=== PATIENT | female | born 1980 | race Caucasian/White ===

== ENCOUNTER 2019-11-06 12:23 | Outpatient (CLI) | payer BC, SELFPAY ==
[2019-11-06 13:23] LABS: Basophils Absolute Auto 0.1 K/mm3 (0.0-0.1); Basophils Percent Auto 0.9 % (0.2-1.2); Eosinophils Absolute Auto 0.2 K/mm3 (0-0.3); Eosinophils Percent Auto 2.3 % (0-4.4); Hematocrit 40.3 % (37.0-47.0); Hemoglobin 13.5 g/dL (12.0-15.0); Immature Granulocyte Absolute 0.09 K/mm3 (0.00-0.031); Immature Granulocyte Percent A 0.9 % (0-0.5); Lymphocytes Percent Auto 34.6 % (18.3-44.2); Mean Corpuscular HGB Conc 33.5 g/dl (32-36); Mean Corpuscular Hemoglobin 31.1 pg (26-34); Mean Corpuscular Volume 92.9 fl (80-100); Mean Platelet Volume 10.3 fl (7.4-10.4); Monocytes Absolute Auto 0.8 K/mm3 (0.1-0.6); Monocytes Percent Auto 8.5 % (2.6-8.5); Neutrophils Absolute Auto 5.2 K/mm3 (1.3-6.7); Neutrophils Percent Auto 52.8 % (45.5-73.1); Platelet Count Result 347 k/mm3 (150-375); Red Blood Count 4.34 M/mm3 (4.2-5.4); White Blood Count 9.8 K/mm3 (4.5-10.0)
== END 2019-11-06 12:24 | disposition home or self-care (01) ==
PROVIDERS: PCP Internal Medicine; Visit Provider Surgery
DX: R19.5 Other fecal abnormalities (principal); Z87.19 Personal history of other diseases of the digestive system
CPT/HCPCS: 36415; 85025

== ENCOUNTER 2020-04-19 21:23 | Emergency (ER) | payer BC, SELFPAY ==
--- NOTE | ~2020-04-19 | CT_ITS ---
EXAMINATION: CT abdomen pelvis w con INDICATION: Lower abdominal pain TECHNIQUE: Computed tomographic images of the abdomen and pelvis were obtained after the administrati on of 100 cc of Omnipaque 350 intravenous contrast. The dose-length product (DLP) was 1628.72 mGy-cm. Automated exposure control and iterative reconstruction technique were employed. COMPARISON: 03/31/2018 FINDINGS: The lung bases are clear. The heart size is normal. The liver is diffusely low in attenuati on when compared with the spleen, consistent with hepatic steatosis. The gallbladder is surgically ab sent. The spleen, pancreas, and adrenal glands are normal. The kidneys are unremarkable. No pathologi christianne enlarged abdominal or pelvic lymph nodes are identified. Colonic diverticulosis is noted. There is fat stranding adjacent to the sigmoid colon without evidence of abscess or perforation. There are no dilated loops of bowel. Nabothian cysts are noted in the cervix. There is mild lumbar spondylosis . There is a small fat-containing umbilical hernia. IMPRESSION: 1. Uncomplicated sigmoid diverticulitis. Reviewed, dictated and finalized at location A. 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
[2020-04-19 21:31] VITALS: BP 149/107; PULSE 94; RESP 20; TEMP 36.3; O2SAT 99
[2020-04-19] MEDS: SODIUM CHLORIDE 0.9% IV 1,000 ML 999 ML IV CONT (21:57)
[2020-04-19] MEDS: ONDANSETRON INJ 4 MG/2 ML VIAL IV PUSH (21:57)
[2020-04-19 22:02] VITALS: BP 162/96; PULSE 83; RESP 22; O2SAT 97
[2020-04-19 22:03] VITALS: PULSE 86; RESP 20; O2SAT 97
[2020-04-19] MEDS: DICYCLOMINE HCL INJ 20 MG/2 ML VIAL IM (22:05)
[2020-04-19 22:08] LABS: Basophils Absolute Auto 0.1 K/mm3 (0.0-0.1); Basophils Percent Auto 0.6 % (0.2-1.2); Eosinophils Absolute Auto 0.4 K/mm3 (0-0.3); Eosinophils Percent Auto 2.4 % (0-4.4); Hemoglobin 13.7 g/dL (12.0-15.0); Immature Granulocyte Absolute 0.09 K/mm3 (0.00-0.031); Immature Granulocyte Percent A 0.6 % (0-0.5); Lymphocytes Absolute Auto 3.29 K/mm3 (0.9-3.2); Lymphocytes Percent Auto 21.7 % (18.3-44.2); Mean Corpuscular HGB Conc 34.3 g/dl (32-36); Mean Corpuscular Hemoglobin 31.6 pg (26-34); Mean Corpuscular Volume 92.2 fl (80-100); Mean Platelet Volume 9.9 fl (7.4-10.4); Monocytes Percent Auto 6.6 % (2.6-8.5); Neutrophils Absolute Auto 10.4 K/mm3 (1.3-6.7); Neutrophils Percent Auto 68.1 % (45.5-73.1); Platelet Count Result 382 k/mm3 (150-375); Red Blood Count 4.34 M/mm3 (4.2-5.4); Red Cell Distribution Width 13.1 % (11.5-14.5); White Blood Count 15.2 K/mm3 (4.5-10.0)
--- NOTE | 2020-04-19 22:16 | ED.GENADULT ---
HPI - General Adult General Chief complaint: Abdominal Pain Stated complaint: bowel pain Time Seen by Provider: 04/19/20 21:40 History of Present Illness HPI narrative: Patient is a 39-year-old female who presents the emergency department with chief complaint of abdominal pain. The patient reports she has prior history of diverticulitis and sees GI. The patient states that she started having discomfort in the left lower quadrant states that it is aching and cramping and states that she has had some pain with bowel movements. The patient does report she had a little bit of blood with the stool as well Related Data Allergies Allergy/AdvReac Type Severity Reaction Status Date / Time Penicillins Allergy Mild Rash Verified 04/19/20 21:37 amoxicillin Allergy Unknown Rash Verified 04/19/20 21:37 Cephalosporins Allergy Unknown Rash Verified 04/19/20 21:37 Sulfa (Sulfonamide Allergy Unknown Rash Verified 04/19/20 21:37 Antibiotics) sulfamethizole Allergy Unknown Rash Verified 04/19/20 21:37 trimethoprim Allergy Unknown Rash Verified 04/19/20 21:37 PMFSH Past Medical History Medical History (Updated 04/19/20 @ 23:29 by Markie Rodriguez MD) Bronchitis Chicken pox Diverticulitis Elevated BP without diagnosis of hypertension [place] Hemorrhoids Migraine headache Pneumonia Post depression PVC (premature ventricular contraction) Solitary pulmonary nodule Surgical History Surgical History Cholecystectomy planned 2017 H/O removal of cyst right arm,1989 Family History Family History Mother Diabetes mellitus Father Patient's father is in good health Other Diabetes mellitus Cerebrovascular accident Hypertension Other Family history of colonic diverticulitis Social History Social History Smoking status: Former smoker Smoking end date: 04/23/12 Alcohol intake: current 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 Gender identity (if verbalized by the patient): Female Course Vital Signs Vital signs: Vital Signs Temperature 36.3 C L 04/19/20 21:31 Pulse Rate 94 04/19/20 21:31 Respiratory Rate 20 04/19/20 21:31 Blood Pressure 149/107 H 04/19/20 21:31 Pulse Oximetry 99 12/28/20 21:31 Temperature 36.3 C L 04/19/20 21:31 Pulse Rate 88 04/19/20 23:50 Respiratory Rate 14 04/19/20 23:50 Blood Pressure 161/101 H 04/19/20 23:50 Pulse Oximetry 97 04/19/20 23:50 Medical Decision Making Vital Signs Vital Signs: Vital Signs Temperature 36.3 C L 04/19/20 21:31 Pulse Rate 94 04/19/20 21:31 Respiratory Rate 20 04/19/20 21:31 Blood Pressure 149/107 H 04/19/20 21:31 Pulse Oximetry 99 04/19/20 21:31 Temperature 36.3 C L 04/19/20 21:31 Pulse Rate 88 04/19/20 23:50 Respiratory Rate 14 04/19/20 23:50 Blood Pressure 161/101 H 04/19/20 23:50 Pulse Oximetry 97 04/19/20 23:50 Lab Data Result diagrams: 04/19/20 22:00 04/19/20 22:00 Labs: Lab Results 04/19/20 04/19/20 04/19/20 Range/Units 22:00 22:00 22:34 WBC 15.2 H (4.5-10.0) K/mm3 RBC 4.34 (4.2-5.4) M/mm3 Hgb 13.7 (12.0-15.0) g/dL Hct 40.0 (37.0-47.0) % MCV 92.2 (80-100) fl MCH 31.6 (26-34) pg MCHC 34.3 (32-36) g/dl RDW 13.1 (11.5-14.5) % Plt Count 382 H (150-375) k/mm3 MPV 9.9 (7.4-10.4) fl Immature Gran % (Auto) 0.6 H (0-0.5) % Neut % (Auto) 68.1 (45.5-73.1) % Lymph % (Auto) 21.7 (18.3-44.2) % [place] % (Auto) 6.6 (2.6-8.5) % Eos % (Auto) 2.4 (0-4.4) % Baso % (Auto) 0.6 (0.2-1.2) % Lymph # (Auto) 3.29 H (0.9-3.2) K/mm3 [place] # (Auto) 1.0 H (0.1-0.6) K/mm3 Eos # (Auto) 0.4 H (0-0.3) K/mm3 Baso # (Auto) 0.1 (0.0-0.1) K/mm3 Abs Immat Gran (auto) 0.09 H (
[2020-04-19 22:17] VITALS: PULSE 85; RESP 27; O2SAT 97
[2020-04-19 22:21] LABS: Alanine Aminotransferase 41 U/L (4-35); Albumin Level 3.9 g/dL (3.5-5.1); Alkaline Phosphatase 73 U/L (38-126); Anion Gap 10 mmol/L (8-16); Aspartate Amino Transferase 34 U/L (14-36); Bilirubin,Total 0.3 mg/dL (0.2-1.3); Blood Urea Nitrogen 10 mg/dL (7-17); Calcium 9.1 mg/dL (8.4-10.2); Carbon Dioxide 27 mmol/L (22-30); Chloride 100 mmol/L (98-107); Estimated CRCL calculation 161 ml/min; Estimated Glomerular Filt Rate > 60; Glucose 131 mg/dL (65-105); Lipase 51 U/L (23-300); Potassium 3.7 mmol/L (3.4-5.0); Sodium 137 mmol/L (137-145)
[2020-04-19 22:42] LABS: Add Urine Microscopic? YES; Appearance Urine Cloudy (Clear); Bilirubin Urine Negative (Negative); Blood Urine 1+ (Negative); Color Urine Yellow (Yellow); Glucose Urine UA Negative (Negative); Ketones Urine Negative (Negative); Leukocyte Esterase Ur 2+ LEU/UL (Negative); Nitrate Urine Negative (Negative); Protein Urine Negative (Negative); Specific Grav Ur 1.019 (1.001-1.035); Squamous Epithelial Cell Urine Many /hpf (Few); Urobilinogen Urine Negative mg/dL (<2.0)
[2020-04-19 23:14] VITALS: PULSE 91; RESP 24
[2020-04-19] MEDS: metroNIDAZOLE 250 MG TABLET 500 MG PO (23:36)
[2020-04-19] MEDS: CIPROFLOXACIN 500 MG TAB PO (23:39)
[2020-04-19 23:50] VITALS: BP 161/101; PULSE 88; RESP 14; O2SAT 97
== END 2020-04-19 23:40 | disposition home or self-care (01) ==
PROVIDERS: Emergency Provider Emergency Medicine; PCP Internal Medicine
DX: K57.92 Diverticulitis of intestine, part unspecified, without perforation or abscess without bleeding (principal); Z87.891 Personal history of nicotine dependence
CPT/HCPCS: 36415; 74177; 80053; 81001; 81025; 83690; 85025; 96361; 96372; 96374; 99284; A9270; J0500; J2405; J7030; Q9967

== ENCOUNTER 2020-04-21 08:04 | Outpatient (CLI) | payer BC, SELFPAY ==
[2020-04-21 08:20] LABS: Basophils Absolute Auto 0.1 K/mm3 (0.0-0.1); Basophils Percent Auto 0.5 % (0.2-1.2); Eosinophils Absolute Auto 0.2 K/mm3 (0-0.3); Eosinophils Percent Auto 1.3 % (0-4.4); Hematocrit 39.6 % (37.0-47.0); Hemoglobin 13.2 g/dL (12.0-15.0); Immature Granulocyte Absolute 0.08 K/mm3 (0.00-0.031); Immature Granulocyte Percent A 0.5 % (0-0.5); Lymphocytes Absolute Auto 2.06 K/mm3 (0.9-3.2); Mean Corpuscular HGB Conc 33.3 g/dl (32-36); Mean Corpuscular Hemoglobin 31.1 pg (26-34); Mean Corpuscular Volume 93.4 fl (80-100); Mean Platelet Volume 9.4 fl (7.4-10.4); Monocytes Absolute Auto 1.1 K/mm3 (0.1-0.6); Monocytes Percent Auto 7.3 % (2.6-8.5); Neutrophils Absolute Auto 11.2 K/mm3 (1.3-6.7); Neutrophils Percent Auto 76.4 % (45.5-73.1); Platelet Count Result 334 k/mm3 (150-375); Red Blood Count 4.24 M/mm3 (4.2-5.4); Red Cell Distribution Width 13.3 % (11.5-14.5); White Blood Count 14.7 K/mm3 (4.5-10.0)
== END 2020-04-21 08:05 | disposition home or self-care (01) ==
PROVIDERS: PCP Internal Medicine; Visit Provider Surgery
DX: K57.92 Diverticulitis of intestine, part unspecified, without perforation or abscess without bleeding (principal)
CPT/HCPCS: 36415; 85025

== ENCOUNTER 2020-06-25 00:45 | Day surgery (SDC) | payer BC, SELFPAY ==
[2020-06-16 12:51] VITALS: BMI 47.0
--- NOTE | 2020-06-25 10:09 | WPDANESEPPF ---
Anes - Initial Pre Proc Eval Procedure: Operation Date: 06/25/20 13:30 Proposed Procedures p Colonoscopy - Kendrick Valdez MD Date/Time: 06/25/20 10:09 Surgeon: Kendrick Valdez MD Pre Op Diagnosis: Diverticulitis Patient Data Age: 40 Gender: F Height: 1.73 m Weight: 140.3 kg Allergies Allergy/AdvReac Type Severity Reaction Status Date / Time Penicillins Allergy Mild Rash Verified 06/25/20 12:23 amoxicillin Allergy Unknown Rash Verified 06/25/20 12:23 Cephalosporins Allergy Unknown Rash Verified 06/25/20 12:23 Sulfa (Sulfonamide Allergy Unknown Rash Verified 06/25/20 12:23 Antibiotics) sulfamethizole Allergy Unknown Rash Verified 06/25/20 12:23 trimethoprim Allergy Unknown Rash Verified 06/25/20 12:23 metronidazole [From Flagyl] AdvReac Intermediate Dizziness Verified 06/25/20 12:23 Home Medications Medication Instructions Recorded Confirmed Type metoprolol succinate 50 mg 50 mg PO DAILY #90 tablet 12/08/19 06/25/20 Rx tablet,extended release 24 hr ibuprofen 600 mg tablet 600 mg PO Q6H PRN 04/21/20 06/25/20 History Patient hx anesthesia problems: none Family hx anesthesia problems: none PMFSH Past Medical History Medical History (Updated 06/16/20 @ 11:25 by Kendrick Valdez MD) Asthma Bronchitis Chicken pox Depression Diarrhea Diverticulitis Elevated BP without diagnosis of hypertension [place] Hemorrhoids HTN (hypertension) Migraine headache Obesity, morbid, BMI 40.0-49.9 Pneumonia Post depression PVC (premature ventricular contraction) Solitary pulmonary nodule Surgical History Surgical History (Updated 06/16/20 @ 11:25 by Kendrick Valdez MD) Cholecystectomy planned 2017 H/O removal of cyst right arm,1990 History of cholecystectomy Family History Family History Mother Diabetes mellitus Father Patient's father is in good health Other Diabetes mellitus Cerebrovascular accident Hypertension Other Family history of colonic diverticulitis Social History Social History (Updated 06/16/20 @ 11:09 by Rosalee Hilario CMA) Smoking status: Never smoker Smoking end date: 04/23/12 Alcohol intake: current Alcohol use details: SOCIAL Substance use: unknown Substance use type: unknown Living arrangements: with family 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 Questions were solicited and answers provided to the satisfaction of the patient/family/POA.
[2020-06-25 12:25] VITALS: BP 131/74; PULSE 90; RESP 20; TEMP 36.1; O2SAT 98; BMI 45.9
[2020-06-25] MEDS: LACTATED RINGERS 1,000 ML 150 ML IV CONT (12:33)
--- NOTE | 2020-06-25 13:28 | WPDHPUPDATE1 ---
History and Physical Update Update Date/Time: 06/25/20 13:28 History and Physical has been reviewed, including an updated exam of the patient. There are NO changes in the patient's condition. Risks, benefits, and alternatives have been discussed and questions answered. Patient agrees to proceed with procedure.
[2020-06-25 13:47] VITALS: BP 131/76; PULSE 75; RESP 22; O2SAT 98
[2020-06-25 13:57] VITALS: BP 148/93; PULSE 68; RESP 22; O2SAT 99
[2020-06-25 14:07] VITALS: BP 156/86; PULSE 68; RESP 22; O2SAT 100
== END 2020-06-25 14:10 | disposition home or self-care (01) ==
PROVIDERS: PCP Internal Medicine; Visit Provider Internal Medicine Gastroenterology
PROC: 0DJD8ZZ Inspection of Lower Intestinal Tract, Via Natural or Artificial Opening Endoscopic (ICD-10-PCS; CPT 45378; principal; 2020-06-25 13:30)
DX: K57.30 Diverticulosis of large intestine without perforation or abscess without bleeding (principal); R19.7 Diarrhea, unspecified; K64.8 Other hemorrhoids; I10 Essential (primary) hypertension; E66.01 Morbid (severe) obesity due to excess calories; Z68.42 Body mass index [BMI] 45.0-49.9, adult
CPT/HCPCS: 45380; 88305; J2704; J7120

== ENCOUNTER 2020-08-31 08:00 | Outpatient (CLI) | payer BC, SELFPAY ==
[2020-08-31 08:21] LABS: Basophils Absolute Auto 0.1 K/mm3 (0.0-0.1); Basophils Percent Auto 0.8 % (0.2-1.2); Eosinophils Absolute Auto 0.3 K/mm3 (0-0.3); Eosinophils Percent Auto 3.1 % (0-4.4); Hematocrit 41.3 % (37.0-47.0); Hemoglobin 13.6 g/dL (12.0-15.0); Immature Granulocyte Absolute 0.03 K/mm3 (0.00-0.031); Immature Granulocyte Percent A 0.4 % (0-0.5); Lymphocytes Absolute Auto 3.33 K/mm3 (0.9-3.2); Lymphocytes Percent Auto 39.5 % (18.3-44.2); Mean Corpuscular HGB Conc 32.9 g/dl (32-36); Mean Corpuscular Hemoglobin 30.2 pg (26-34); Mean Corpuscular Volume 91.6 fl (80-100); Mean Platelet Volume 9.5 fl (7.4-10.4); Monocytes Absolute Auto 0.7 K/mm3 (0.1-0.6); Monocytes Percent Auto 7.8 % (2.6-8.5); Neutrophils Absolute Auto 4.1 K/mm3 (1.3-6.7); Neutrophils Percent Auto 48.4 % (45.5-73.1); Platelet Count Result 347 k/mm3 (150-375); Red Blood Count 4.51 M/mm3 (4.2-5.4); Red Cell Distribution Width 13.2 % (11.5-14.5); White Blood Count 8.4 K/mm3 (4.5-10.0)
[2020-08-31 08:31] LABS: Potassium 3.9 mmol/L (3.4-5.0)
[2020-08-31 08:32] LABS: Alanine Aminotransferase 41 U/L (4-35); Alkaline Phosphatase 74 U/L (38-126); Anion Gap 6 mmol/L (8-16); Aspartate Amino Transferase 32 U/L (14-36); Bilirubin,Total 0.1 mg/dL (0.2-1.3); Blood Urea Nitrogen 9 mg/dL (7-17); Carbon Dioxide 27 mmol/L (22-30); Chloride 105 mmol/L (98-107); Cholesterol 185 mg/dL (0-200); Estimated Glomerular Filt Rate > 60; Glucose 103 mg/dL (65-105); HDL Direct 41 mg/dL; Sodium 138 mmol/L (137-145); Triglycerides 371 mg/dL (<150)
[2020-08-31 08:42] LABS: LDL Cholesterol Direct 102 mg/dL
== END 2020-08-31 08:01 | disposition home or self-care (01) ==
PROVIDERS: PCP Internal Medicine; Visit Provider Clinical Nurse Specialist
DX: I10 Essential (primary) hypertension (principal); Z13.220 Encounter for screening for lipoid disorders
CPT/HCPCS: 36415; 80053; 80061; 85025

== ENCOUNTER → 2020-09-04 01:14 | Outpatient (CLI) | payer BC, SELFPAY ==
[2020-09-04 19:43] LABS: SARS-CoV-2 RNA PCR Negative
== END ==
PROVIDERS: PCP Internal Medicine; Visit Provider Internal Medicine Gastroenterology
DX: Z01.812 Encounter for preprocedural laboratory examination (principal); Z20.822 Contact with and (suspected) exposure to COVID-19
CPT/HCPCS: C9803; U0003; U0005

== ENCOUNTER 2020-09-08 02:43 | Day surgery (SDC) | payer BC, SELFPAY ==
[2020-09-08 07:45] VITALS: BP 149/85; PULSE 77; RESP 20; TEMP 36.3; O2SAT 96; BMI 46.9
--- NOTE | 2020-09-08 07:56 | WPDANESEPPF ---
Anes - Initial Pre Proc Eval Procedure: Operation Date: 09/08/20 08:30 Proposed Procedures p Esophagogastroduodenoscopy - Kendrick Valdez MD Date/Time: 09/08/20 07:56 Surgeon: Kendrick Valdez MD Pre Op Diagnosis: abdominal pain Patient Data Age: 40 Gender: F Height: 1.73 m Weight: 139.9 kg Last Vital Signs Temp 36.3 C L 09/08/20 07:45 Pulse 77 09/08/20 07:45 Resp 20 09/08/20 07:45 BP 149/85 H 09/08/20 07:45 Pulse Ox 96 09/08/20 07:45 Allergies Allergy/AdvReac Type Severity Reaction Status Date / Time Penicillins Allergy Mild Rash Verified 09/08/20 07:43 amoxicillin Allergy Unknown Rash Verified 09/08/20 07:43 Cephalosporins Allergy Unknown Rash Verified 09/08/20 07:43 Sulfa (Sulfonamide Allergy Unknown Rash Verified 09/08/20 07:43 Antibiotics) sulfamethizole Allergy Unknown Rash Verified 09/08/20 07:43 trimethoprim Allergy Unknown Rash Verified 09/08/20 07:43 metronidazole [From Flagyl] AdvReac Intermediate Dizziness Verified 09/08/20 07:43 Home Medications Medication Instructions Recorded Confirmed Type ibuprofen 600 mg tablet 600 mg PO Q6H PRN 04/21/20 09/08/20 History metoprolol tartrate 25 mg tablet 25 mg PO BID #180 tablet 09/06/20 09/08/20 Rx phentermine 37.5 mg tablet 37.5 mg PO DAILY #30 tablet 09/06/20 09/08/20 Rx Patient hx anesthesia problems: none Family hx anesthesia problems: none PMFSH Past Medical History Medical History (Updated 09/08/20 @ 08:36 by Kendrick Valdez MD) Asthma Bronchitis Chicken pox Depression Diarrhea Diverticulitis Elevated BP without diagnosis of hypertension Epigastric pain [place] Hemorrhoids HTN (hypertension) Migraine headache Obesity, morbid, BMI 40.0-49.9 Pneumonia Post depression PVC (premature ventricular contraction) Solitary pulmonary nodule Surgical History Surgical History Cholecystectomy planned 2017 H/O removal of cyst right arm,1990 History of cholecystectomy Family History Family History Mother Diabetes mellitus Father Patient's father is in good health Other Diabetes mellitus Cerebrovascular accident Hypertension Other Family history of colonic diverticulitis Social History Social History Smoking packs per day: 1 Smoking cigarettes per day: 20.0 Years smoked: 10 Smoking pack-years: 10.00 Smoking status: Never smoker Tobacco type: cigarettes Smoking end date: 04/23/12 Alcohol intake: current Drinks per week: 4 Substance use: unknown Substance use type: unknown Living arrangements: with family 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 Questions were solicited and answers provided to the satisfaction of the patient/family/POA.
[2020-09-08] MEDS: LACTATED RINGERS 1,000 ML 150 ML IV CONT (07:57)
--- NOTE | 2020-09-08 08:35 | PM.HPGS ---
History of Present Illness History of Present Illness Consent: Risks, benefits, and alternatives have been discussed and questions answered. Patient agrees to proceed with procedure. Chief complaint: abdominal pain Narrative: Donya Walter is a 40 year old female with intermittent epigastric pain and diarrhea, colonoscopy with normal colon biopsies Review of Systems Constitutional: Constitutional: Denies headache(s) and Denies weakness Eyes: Eyes: Denies blurry vision ENT: Reports Normal hearing present, Denies headache(s) and Denies neck pain Cardiovascular: Cardiovascular: Denies chest pain and Denies dyspnea Respiratory: Respiratory: Denies dyspnea Gastrointestinal: Gastrointestinal: Reports no additional gastrointestinal complaints Genitourinary: Genitourinary: Denies dysuria Musculoskeletal: Musculoskeletal: Denies neck pain Integumentary/Breasts: Skin/Breast: Denies dry skin Neurologic: Reports Normal hearing present, Denies headache(s) and Denies weakness Psychiatric: Psychiatric: Denies anxiety Endocrine: Endocrine: Denies change in body appearance Hematologic/Lymphatic: Hematologic/Lymphatic: Denies easy bleeding Allergic/Immunologic: Allergic/Immunologic: Denies urticaria PMFSH Past Medical History Medical History (Updated 09/08/20 @ 08:36 by Kendrick Valdez MD) Asthma Bronchitis Chicken pox Depression Diarrhea Diverticulitis Elevated BP without diagnosis of hypertension Epigastric pain [place] Hemorrhoids HTN (hypertension) Migraine headache Obesity, morbid, BMI 40.0-49.9 Pneumonia Post depression PVC (premature ventricular contraction) Solitary pulmonary nodule Surgical History Surgical History Cholecystectomy planned 2017 H/O removal of cyst right arm,1990 History of cholecystectomy Family History Family History Mother Diabetes mellitus Father Patient's father is in good health Other Diabetes mellitus Cerebrovascular accident Hypertension Other Family history of colonic diverticulitis Social History Social History Smoking packs per day: 1 Smoking cigarettes per day: 20.0 Years smoked: 10 Smoking pack-years: 10.00 Smoking status: Never smoker Tobacco type: cigarettes Smoking end date: 04/23/12 Alcohol intake: current Drinks per week: 4 Substance use: unknown Substance use type: unknown Living arrangements: with family 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 Gender identity (if verbalized by the patient): Female Spiritual care concerns: No Meds Home Medications and Allergies Home Medications Medication Instructions Recorded Confirmed Type ibuprofen 600 mg tablet 600 mg PO Q6H PRN 04/21/20 09/08/20 History metoprolol tartrate 25 mg tablet 25 mg PO BID #180 tablet 09/06/20 09/08/20 Rx phentermine 37.5 mg tablet 37.5 mg PO DAILY #30 tablet 09/06/20 09/08/20 Rx Allergies Allergy/AdvReac Type Severity Reaction Status Date / Time Penicillins Allergy Mild Rash Verified 09/08/20 07:43 amoxicillin Allergy Unknown Rash Verified 09/08/20 07:43 Cephalosporins Allergy Unknown Rash Verified 09/08/20 07:43 Sulfa (Sulfonamide Allergy Unknown Rash Verified 09/08/20 07:43 Antibiotics) sulfamethizole Allergy Unknown Rash Verified 09/08/20 07:43 trimethoprim Allergy Unknown Rash Verified 09/08/20 07:43 metronidazole [From Flagyl] AdvReac Intermediate Dizziness Verified 09/08/20 07:43 Vital Signs Vital Signs - 24 hr 09/08/20 07:45 Temperature 97.3 F L Pulse Rate 77 Respiratory Rate 20 Blood Pressure 149/85 H Pulse Oximetry 96 Exam Const: General: comfortable and no acute distress HENMT: General nose exam: Normal nares present Eyes: General: appearance normal, both eyes and all related structures
[2020-09-08 08:59] VITALS: BP 130/84; PULSE 67; RESP 22; O2SAT 98
[2020-09-08 09:09] VITALS: BP 130/84; PULSE 70; RESP 20; O2SAT 98
[2020-09-08 09:19] VITALS: BP 158/95; PULSE 71; RESP 20; O2SAT 97
== END 2020-09-08 09:20 | disposition home or self-care (01) ==
PROVIDERS: PCP Internal Medicine; Visit Provider Internal Medicine Gastroenterology
PROC: 0DJ08ZZ Inspection of Upper Intestinal Tract, Via Natural or Artificial Opening Endoscopic (ICD-10-PCS; CPT 43235; principal; 2020-09-08 08:30)
DX: K29.50 Unspecified chronic gastritis without bleeding (principal); R19.7 Diarrhea, unspecified; J45.909 Unspecified asthma, uncomplicated; F32.9 Major depressive disorder, single episode, unspecified; I10 Essential (primary) hypertension; I49.3 Ventricular premature depolarization; E66.01 Morbid (severe) obesity due to excess calories; Z68.42 Body mass index [BMI] 45.0-49.9, adult; Z87.891 Personal history of nicotine dependence
CPT/HCPCS: 43239; 87081; 88305; J2704; J7120

== ENCOUNTER 2021-08-31 16:16 | Emergency (ER) | payer BC, SELFPAY ==
[2021-08-31] VITALS (14 sets, daily range): BP systolic 140–186; BP diastolic 53–100; PULSE 69–81; RESP 18–27; TEMP 36.6; O2SAT 97–100
--- NOTE | ~2021-08-31 | CT_ITS ---
EXAMINATION: CT abdomen pelvis w con DATE: 08/31/2021 19:33 INDICATION: Hx of freq divertic, LLQ pain TECHNIQUE: Computed tomography (CT) of the abdomen and pelvis was performed with 100 mL Omnipaque-300 intravenous contrast. Automated exposure control and iterative reconstruction technique were employe d. The dose-length product was 1558.10 mGy-cm. COMPARISON: 04/19/2020, 03/31/2018, 02/20/2018. FINDINGS: Lower thorax: 3 mm right lower lobe pulmonary nodule. Liver: Steatosis. Biliary/Gallbladder: Gallbladder is absent. No bile duct dilation. Spleen: Normal. Pancreas: No mass or duct dilation. Adrenals:No mass. Kidneys: No mass, stone, or hydronephrosis. GI tract: No small or large bowel dilation. Normal appendix. Diverticulosis. Mild pericolonic inflamm atory change in the distal sigmoid. Mesentery/Peritoneum: No ascites, mass, or free air. Retroperitoneum: No mass.. Pelvis: Pelvic organs are within normal limits. Soft Tissues: Small fat-containing bilateral inguinal hernias. Bones: No acute osseous finding. IMPRESSION: Uncomplicated acute distal sigmoid diverticulitis. 3 mm right lower lobe pulmonary nodule, if at high risk consider optional follow-up CT chest in 12 months, otherwise no follow-up required. Reviewed, dictated and finalized at location K. IMPRESSION: Uncomplicated acute distal sigmoid diverticulitis. 3 mm right lower lobe pulmon marika nodule, if at high risk consider optional follow-up CT chest in 12 months, otherwise no follow-up required.
[2021-08-31 16:45] LABS: Basophils Absolute Auto 0.1 K/mm3 (0.0-0.1); Basophils Percent Auto 0.8 % (0.2-1.2); Eosinophils Absolute Auto 0.2 K/mm3 (0-0.3); Eosinophils Percent Auto 2.2 % (0-4.4); Hematocrit 39.4 % (37.0-47.0); Hemoglobin 13.5 g/dL (12.0-15.0); Immature Granulocyte Absolute 0.05 K/mm3 (0.00-0.031); Immature Granulocyte Percent A 0.5 % (0-0.5); Lymphocytes Percent Auto 29.4 % (18.3-44.2); Mean Corpuscular HGB Conc 34.3 g/dl (32-36); Mean Corpuscular Volume 90.4 fl (80-100); Mean Platelet Volume 9.5 fl (7.4-10.4); Monocytes Percent Auto 10.3 % (2.6-8.5); Neutrophils Absolute Auto 5.4 K/mm3 (1.3-6.7); Neutrophils Percent Auto 56.8 % (45.5-73.1); Platelet Count Result 333 k/mm3 (150-375); Red Blood Count 4.36 M/mm3 (4.2-5.4); Red Cell Distribution Width 13.1 % (11.5-14.5); White Blood Count 9.5 K/mm3 (4.5-10.0)
[2021-08-31 16:57] LABS: Alanine Aminotransferase 33 U/L (6-35); Albumin Level 4.2 g/dL (3.5-5.1); Alkaline Phosphatase 93 U/L (38-126); Anion Gap 7 mmol/L (8-16); Aspartate Amino Transferase 27 U/L (14-36); Bilirubin,Total 0.3 mg/dL (0.2-1.3); Blood Urea Nitrogen 9 mg/dL (7-17); Calcium 8.7 mg/dL (8.4-10.2); Carbon Dioxide 25 mmol/L (22-30); Chloride 100 mmol/L (98-107); Estimated CRCL calculation 157 ml/min; Estimated Glomerular Filt Rate > 60; Glucose 101 mg/dL (65-110); Lipase 253 U/L (23-300); Potassium 3.8 mmol/L (3.4-5.0); Sodium 132 mmol/L (137-145)
--- NOTE | 2021-08-31 19:09 | ED.ABDPAIN ---
HPI - Abdominal Pain General Chief Complaint: Abdominal Pain Stated Complaint: ABD PAIN HX DIVERTICULITIS Time Seen by Provider: 08/31/21 18:53 Source: patient Mode of arrival: ambulatory Limitations: no limitations History of Present Illness HPI narrative: Patient is a 41-year-old female who presents to the ED with report of left lower quadrant abdominal pain. Patient reports the pain began around 6 PM yesterday but became more severe and constant today. She does note a history of 3 previous episodes of diverticulitis which have felt similar. Last episode April 2020. She had a colonoscopy [address] Medina and has seen Dr. Orellana for her diverticulitis in the past. She has had 1 episode of perforation associated with diverticulitis but did not require surgery. Patient has not taken anything for pain since it began. She also reports having worsening abdominal pain with having a bowel movement but denies any recent diarrhea, rectal bleeding, constipation, fever, chills, nausea, vomiting, urinary symptoms. Related Data Home Medications Medication Instructions Recorded Confirmed ibuprofen 600 mg tablet 600 mg PO Q6H PRN 04/21/20 10/26/20 Allergies Allergy/AdvReac Type Severity Reaction Status Date / Time Penicillins Allergy Mild Rash Verified 09/08/20 07:43 amoxicillin Allergy Unknown Rash Verified 09/08/20 07:43 Cephalosporins Allergy Unknown Rash Verified 09/08/20 07:43 Sulfa (Sulfonamide Allergy Unknown Rash Verified 09/08/20 07:43 Antibiotics) sulfamethizole Allergy Unknown Rash Verified 09/08/20 07:43 trimethoprim Allergy Unknown Rash Verified 09/08/20 07:43 metronidazole [From Flagyl] AdvReac Intermediate Dizziness Verified 09/08/20 07:43 Review of Systems Review of Systems: CONSTITUTIONAL: Denies fever, chills. CARDIOVASCULAR: Denies chest pain. RESPIRATORY: Denies cough or dyspnea. GASTROINTESTINAL: Reports LLQ ABD pain, ABD pain with BMs. Denies constipation, rectal bleeding, nausea, vomiting, or diarrhea. GENITOURINARY: Denies dysuria or hematuria. SKIN: Denies rash or itching. MUSCULOSKELETAL: Denies back pain. All systems reviewed & are unremarkable except as noted in HPI and below PMFSH Past Medical History Medical History Asthma Bronchitis Chicken pox Depression Diarrhea Diverticulitis Elevated BP without diagnosis of hypertension Epigastric pain [place] Hemorrhoids HTN (hypertension) Migraine headache Obesity, morbid, BMI 40.0-49.9 Pneumonia Post depression PVC (premature ventricular contraction) Solitary pulmonary nodule Surgical History Surgical History Cholecystectomy planned 2017 H/O removal of cyst right arm,1990 History of cholecystectomy Family History Family History Mother Diabetes mellitus Father Patient's father is in good health Other Diabetes mellitus Cerebrovascular accident Hypertension Other Family history of colonic diverticulitis Social History Social History Smoking packs per day: 1 Smoking cigarettes per day: 20.0 Years smoked: 10 Smoking pack-years: 10.00 Smoking status: Never smoker Tobacco type: cigarettes Smoking end date: 04/23/12 Alcohol intake: current Drinks per week: 4 Alcohol use details: SOCIAL Substance use: unknown Substance use type: unknown 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 HEAD: Normocephalic, atraumatic. NECK: Supple. No adenopathy, no masses. RESPIRATORY: Airway patent, respirations nonlabored. Clear to auscultation bilaterally, no rales, rhonchi, wheezing.
[2021-08-31] MEDS: SODIUM CHLORIDE 0.9% IV 1,000 ML 999 ML IV CONT (20:09)
[2021-08-31] MEDS: KETOROLAC 30 MG/ML VIAL (*BKC) IV PUSH (20:10)
[2021-08-31] MEDS: metroNIDAZOLE 250 MG TABLET 500 MG PO (21:06)
[2021-08-31] MEDS: levoFLOXacin 750 MG TABLET PO (21:07)
[2021-08-31 21:11] LABS: Appearance Urine Slightly Cloudy (Clear); Bilirubin Urine Negative (Negative); Blood Urine Trace-lysed (Negative); Color Urine Yellow (Yellow); Glucose Urine UA Negative (Negative); Ketones Urine Negative (Negative); Leukocyte Esterase Ur 1+ LEU/UL (Negative); Nitrate Urine Negative (Negative); Protein Urine Negative (Negative); Specific Grav Ur 1.025 (1.001-1.035); Urobilinogen Urine 0.2 mg/dL (<2.0); pH Urine 5.5 (5.0-9.0)
[2021-08-31 21:22] LABS: Add Urine Microscopic? YES; Mucus Urine Rare /lpf; Squamous Epithelial Cell Urine Many /hpf (Few)
== END 2021-08-31 21:44 | disposition home or self-care (01) ==
PROVIDERS: Emergency Medicine; Emergency Provider Emergency Medicine; PCP Internal Medicine
DX: K57.32 Diverticulitis of large intestine without perforation or abscess without bleeding (principal); J45.909 Unspecified asthma, uncomplicated; E66.01 Morbid (severe) obesity due to excess calories; Z68.42 Body mass index [BMI] 45.0-49.9, adult; Z87.891 Personal history of nicotine dependence; R91.1 Solitary pulmonary nodule
CPT/HCPCS: 36415; 74177; 80053; 81001; 81025; 83690; 85025; 87086; 87088; 96361; 96365; 99284; A9270; J0131; J1885; J7030; Q9967

== ENCOUNTER 2021-10-17 17:01 | Outpatient (CLI) | payer BC, SELFPAY ==
[2021-10-17 17:18] LABS: Basophils Absolute Auto 0.1 K/mm3 (0.0-0.1); Basophils Percent Auto 0.8 % (0.2-1.2); Eosinophils Absolute Auto 0.3 K/mm3 (0-0.3); Eosinophils Percent Auto 2.1 % (0-4.4); Hemoglobin 13.3 g/dL (12.0-15.0); Immature Granulocyte Absolute 0.05 K/mm3 (0.00-0.031); Immature Granulocyte Percent A 0.4 % (0-0.5); Lymphocytes Absolute Auto 3.24 K/mm3 (0.9-3.2); Lymphocytes Percent Auto 27.2 % (18.3-44.2); Mean Corpuscular HGB Conc 33.3 g/dl (32-36); Mean Corpuscular Hemoglobin 30.5 pg (26-34); Mean Corpuscular Volume 91.7 fl (80-100); Mean Platelet Volume 9.3 fl (7.4-10.4); Monocytes Percent Auto 8.1 % (2.6-8.5); Neutrophils Absolute Auto 7.3 K/mm3 (1.3-6.7); Neutrophils Percent Auto 61.4 % (45.5-73.1); Platelet Count Result 384 k/mm3 (150-375); Red Blood Count 4.36 M/mm3 (4.2-5.4); Red Cell Distribution Width 13.1 % (11.5-14.5); White Blood Count 11.9 K/mm3 (4.5-10.0)
[2021-10-17 17:34] LABS: Alanine Aminotransferase 33 U/L (6-35); Alkaline Phosphatase 80 U/L (38-126); Anion Gap 7 mmol/L (8-16); Aspartate Amino Transferase 23 U/L (14-36); Bilirubin,Total 0.2 mg/dL (0.2-1.3); Blood Urea Nitrogen 11 mg/dL (7-17); CRP 1.5 mg/dL (<1.0); Calcium 8.8 mg/dL (8.4-10.2); Carbon Dioxide 31 mmol/L (22-30); Chloride 99 mmol/L (98-107); Estimated Glomerular Filt Rate > 60; Glucose 121 mg/dL (65-110); Potassium 3.5 mmol/L (3.4-5.0); Sodium 137 mmol/L (137-145)
[2021-10-18 10:31] LABS: Appearance Urine Clear (Clear); Bilirubin Urine Negative (Negative); Glucose Urine UA Negative (Negative); Ketones Urine Negative (Negative); Leukocyte Esterase Ur Negative LEU/UL (Negative); Nitrate Urine Negative (Negative); Protein Urine Negative (Negative); Specific Grav Ur 1.015 (1.001-1.035); Urobilinogen Urine 0.2 mg/dL (<2.0)
[2021-10-18 10:37] LABS: Bacteria Urine Trace /hpf; Mucus Urine Rare /lpf; RBC Urine 0-2 /hpf (0-2); Squamous Epithelial Cell Urine Rare /hpf (Few); WBC Urine 0-3 /hpf
[2021-10-18 10:42] LABS: Add Urine Microscopic? YES; Blood Urine Trace-Intact (Negative); Color Urine Light Yellow (Yellow)
== END 2021-10-17 17:02 | disposition home or self-care (01) ==
LOC: ANHLAB 17:02
PROVIDERS: PCP Obstetrics & Gynecology; Visit Provider Surgery
DX: R10.9 Unspecified abdominal pain (principal)
CPT/HCPCS: 36415; 80053; 81001; 85025; 86140

== ENCOUNTER 2021-10-18 16:30 | Outpatient (CLI) | payer BC, SELFPAY ==
--- NOTE | ~2021-10-18 | CT_ITS ---
EXAMINATION: CT abdomen pelvis w con DATE: 10/18/2021 17:09 INDICATION: abdominal pain TECHNIQUE: Computed tomography (CT) of the abdomen and pelvis was performed with 100 mL Omnipaque-300 intravenous contrast. Automated exposure control and iterative reconstruction technique were employe d. The dose-length product was 1718.39 mGy-cm. COMPARISON: 08/31/2021. FINDINGS: Lower thorax: Stable 3 mm right lower lobe pulmonary nodule. Liver: Hepatomegaly and steatosis. Biliary/Gallbladder: Gallbladder is absent. No bile duct dilation. Pancreas: No mass or duct dilation. Spleen: Normal. Adrenals:No mass. Kidneys: No mass, stone, or hydronephrosis. Ectopic right kidney. GI tract: No small or large bowel dilation. Normal appendix. Diverticulosis. Short segment wall thick ening and pericolonic inflammatory change at the junction of the descending colon and sigmoid colon. Mesentery/Peritoneum: No ascites, mass, or free air. Retroperitoneum: No mass. Pelvis: Pelvic organs are within normal limits. Soft Tissues: Soft tissues and body wall unremarkable. Bones: No acute osseous finding. IMPRESSION: Acute uncomplicated diverticulitis at the junction of the descending and sigmoid colon. Millimeter ri ght lower lobe pulmonary nodule, prior recommendation unchanged. Reviewed, dictated and finalized at location K. IMPRESSION: Acute uncomplicated diverticulitis at the junction of the descending and sigmoi d colon. Millimeter right lower lobe pulmonary nodule, prior recommendation unc hanged.
== END 2021-10-18 16:31 | disposition home or self-care (01) ==
PROVIDERS: PCP Obstetrics & Gynecology; Visit Provider Surgery
DX: R10.9 Unspecified abdominal pain (principal); K57.92 Diverticulitis of intestine, part unspecified, without perforation or abscess without bleeding; R91.1 Solitary pulmonary nodule
CPT/HCPCS: 74177; Q9967

== ENCOUNTER 2021-11-04 14:47 | Emergency (ER) | payer BC, SELFPAY ==
[2021-11-04] VITALS (9 sets, daily range): BP systolic 144–184; BP diastolic 74–104; PULSE 79–115; RESP 16–18; TEMP 36.1; O2SAT 96–100
--- NOTE | ~2021-11-04 | CT_ITS ---
EXAMINATION: CT brain wo con DATE: 11/04/2021 15:44 INDICATION: Headache. Hypertension. Dizziness. TECHNIQUE: Computed tomography (CT) of the head was performed without intravenous contrast. The mA wa s adjusted according to patient size. Iterative reconstruction technique was employed. Exam dose: 60 5.33 mGy-cm total exam DLP. COMPARISON: None FINDINGS: No intracranial mass lesion or hemorrhage or cerebrovascular accident. No midline shift or mass effect. Normal ventricular size. Normal real-white matter differentiation. No subdural or epidur al hematoma. Orbital contents are unremarkable. Included mastoid air cells and paranasal sinuses are normally developed and aerated. No fracture or bone destruction of the cranial vault. IMPRESSION: Negative Reviewed, dictated and finalized at [facility]. Reviewed, dictated and finalized at [facility]. IMPRESSION: Negative
--- NOTE | 2021-11-04 15:30 | ECG_ITS ---
Measurements Intervals [place] Rate: 68 P: 17 VA: 151 QRS: -24 QRSD: 110 T: 12 QT: 425 QTc: 455 Interpretive Statements SINUS RHYTHM POOR R WAVE PROGRESSION, ANTERIOR LEADS BORDERLINE ECG Electronically Signed On 11-04-2021 18:41:57 CDT by Meir Mena D.O.
--- NOTE | 2021-11-04 15:31 | ED.GENADULT ---
HPI - General Adult General Chief complaint: Headache Stated complaint: HTN, sent from PCP Time Seen by Provider: 11/04/21 15:16 History of Present Illness HPI narrative: 41-year-old female presenting to the emergency department for evaluation of hypertension. Patient states that she has no prior history of high blood pressure. Patient states that she did check her blood pressure at home but feels like cuff was too small. Patient got a reading of 210/160. Patient went to the pharmacy and also rechecked her blood pressure and it was found to be elevated. Patient presented to the emergency department for evaluation per her primary care physician's recommendation. Patient states that she did just recently have an episode of diverticulitis which she was treated with antibiotics. Patient has completed antibiotics and states that her nausea vomiting abdominal pain has improved. Patient denies any current headache at this time. Patient states intermittently she does have some dizziness when she stands up but states this has been a long-term issue and is not acute to today. Related Data Allergies Allergy/AdvReac Type Severity Reaction Status Date / Time Penicillins Allergy Mild Rash Verified 10/20/21 15:50 amoxicillin Allergy Unknown Rash Verified 10/20/21 15:50 Cephalosporins Allergy Unknown Rash Verified 10/20/21 15:50 Sulfa (Sulfonamide Allergy Unknown Rash Verified 10/20/21 15:50 Antibiotics) sulfamethizole Allergy Unknown Rash Verified 10/20/21 15:50 trimethoprim Allergy Unknown Rash Verified 10/20/21 15:50 metronidazole [From Flagyl] AdvReac Intermediate Dizziness Verified 10/20/21 15:50 Review of Systems Review of Systems: CONSTITUTIONAL: See HPI EYES: Denies visual changes, redness, or discharge. ENT: Denies rhinorrhea, congestion, sore throat, or otalgia. CARDIOVASCULAR: Denies chest pain, palpitations, or edema. RESPIRATORY: Denies cough or dyspnea. GASTROINTESTINAL: Denies abdominal pain, nausea, vomiting, or diarrhea. GENITOURINARY: Denies dysuria or hematuria. SKIN: Denies rash or itching. MUSCULOSKELETAL: Denies back pain, joint pain, or myalgia. NEUROLOGIC: Denies headache, numbness, or weakness. See HPI [facility] Past Medical History Medical History Asthma Bronchitis Chicken pox Depression Diarrhea Diverticulitis Elevated BP without diagnosis of hypertension Encounter for gynecological examination (general) (routine) without abnormal findings Epigastric pain Fainting Falls Hemorrhoids HTN (hypertension) Migraine headache Obesity, morbid, BMI 40.0-49.9 Pneumonia Post depression PVC (premature ventricular contraction) Screening mammogram for breast cancer Solitary pulmonary nodule Surgical History Surgical History Cholecystectomy planned 2017 H/O removal of cyst right arm,1990 History of cholecystectomy Family History Family History (System 10/20/21 @ 15:50 by Queenie Macdonald) Mother Diabetes mellitus Father Patient's father is in good health Other Diabetes mellitus Cerebrovascular accident Hypertension Other Family history of colonic diverticulitis Social History Social History (System 10/20/21 @ 15:50 by Queenie Macdonald) Smoking packs per day: 1 Smoking cigarettes per day: 20.0 Years smoked: 10 Smoking pack-years: 10.00 Smoking status: Never smoker Tobacco type: cigarettes Smoking end date: 04/23/12 Alcohol intake: current Drinks per week: 4 Alcohol use details: SOCIAL Substance use: unknown Substance use type: unknown 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
[2021-11-04 16:11] LABS: Basophils Absolute Auto 0.1 K/mm3 (0.0-0.1); Basophils Percent Auto 0.7 % (0.2-1.2); Eosinophils Absolute Auto 0.2 K/mm3 (0-0.3); Eosinophils Percent Auto 2.5 % (0-4.4); Hematocrit 40.5 % (37.0-47.0); Hemoglobin 13.3 g/dL (12.0-15.0); Immature Granulocyte Absolute 0.06 K/mm3 (0.00-0.031); Immature Granulocyte Percent A 0.6 % (0-0.5); Lymphocytes Absolute Auto 2.66 K/mm3 (0.9-3.2); Lymphocytes Percent Auto 27.7 % (18.3-44.2); Mean Corpuscular HGB Conc 32.8 g/dl (32-36); Mean Corpuscular Hemoglobin 30.2 pg (26-34); Mean Platelet Volume 9.6 fl (7.4-10.4); Monocytes Absolute Auto 0.8 K/mm3 (0.1-0.6); Neutrophils Absolute Auto 5.8 K/mm3 (1.3-6.7); Neutrophils Percent Auto 60.5 % (45.5-73.1); Platelet Count Result 374 k/mm3 (150-375); Red Cell Distribution Width 13.4 % (11.5-14.5); White Blood Count 9.6 K/mm3 (4.5-10.0)
[2021-11-04] MEDS: hydrALAZINE HCL 20 MG/ML VIAL 10 MG IV PUSH (16:17)
[2021-11-04 16:20] LABS: Alanine Aminotransferase 27 U/L (6-35); Alkaline Phosphatase 73 U/L (38-126); Anion Gap 7 mmol/L (8-16); Aspartate Amino Transferase 25 U/L (14-36); Bilirubin,Total 0.3 mg/dL (0.2-1.3); Blood Urea Nitrogen 9 mg/dL (7-17); Calcium 8.6 mg/dL (8.4-10.2); Carbon Dioxide 25 mmol/L (22-30); Chloride 105 mmol/L (98-107); Estimated CRCL calculation 158 ml/min; Estimated Glomerular Filt Rate > 60; Glucose 118 mg/dL (65-110); Potassium 3.7 mmol/L (3.4-5.0); Sodium 137 mmol/L (137-145)
[2021-11-04 16:33] LABS: Troponin I < 0.012 ng/mL (0.000-0.034)
[2021-11-04 17:01] LABS: Appearance Urine Clear (Clear); Bilirubin Urine Negative (Negative); Blood Urine Negative (Negative); Color Urine Yellow (Yellow); Glucose Urine UA Negative (Negative); Ketones Urine Negative (Negative); Leukocyte Esterase Ur Negative LEU/UL (Negative); Nitrate Urine Negative (Negative); Protein Urine Negative (Negative); Specific Grav Ur >= 1.030 (1.001-1.035); Urobilinogen Urine 0.2 mg/dL (<2.0); pH Urine 5.5 (5.0-9.0)
[2021-11-04 17:09] LABS: Bacteria Urine Trace /hpf; Mucus Urine Rare /lpf; Squamous Epithelial Cell Urine Few /hpf (Few); WBC Urine 0-3 /hpf
[2021-11-04 17:10] LABS: Add Urine Microscopic? YES
== END 2021-11-04 17:50 | disposition home or self-care (01) ==
PROVIDERS: Emergency Provider Emergency Medicine; PCP Obstetrics & Gynecology
DX: I10 Essential (primary) hypertension (principal); R51.9 Headache, unspecified; J45.909 Unspecified asthma, uncomplicated; E66.01 Morbid (severe) obesity due to excess calories; Z68.42 Body mass index [BMI] 45.0-49.9, adult; Z87.891 Personal history of nicotine dependence; R94.31 Abnormal electrocardiogram [ECG] [EKG]
CPT/HCPCS: 36415; 70450; 80053; 81001; 81025; 84484; 85025; 93005; 96374; 99284; J0360

== ENCOUNTER → 2022-02-22 16:11 | Outpatient (CLI) | payer BC, SELFPAY ==
--- NOTE | ~2022-02-22 | XR_ITS ---
XR lumbar spine 2-3V DATE: 02/22/2022 16:35 INDICATION: Back pain TECHNIQUE: AP, lateral, coned lateral lumbosacral views COMPARISON: 10/09/2018 CT abdomen pelvis FINDINGS: There is a transitional lumbosacral vertebra with sacralization pseudoarthrosis on the left . This may be a source of chronic low back pain. No fracture, bone destruction or spondylolisthesis. The included lower thoracic and lumbar pedicles a re intact. The sacroiliac joints are unremarkable except for mild degenerative change. IMPRESSION: Transitional lumbosacral vertebra Reviewed, dictated and finalized at [facility].
== END ==
PROVIDERS: PCP Clinical Nurse Specialist; Visit Provider Clinical Nurse Specialist
DX: M54.9 Dorsalgia, unspecified (principal); Q76.49 Other congenital malformations of spine, not associated with scoliosis
CPT/HCPCS: 72100

== ENCOUNTER 2022-05-06 10:57 | Outpatient (CLI) | payer BC, SELFPAY ==
--- NOTE | ~2022-05-06 | MR_ITS ---
MRI of the lumbar spine Clinical History: Back pain Technique: Axial T2-weighted images, and sagittal T1-weighted, T2-weighted, and T2 fat-sat images wer e acquired. Findings: 6 lumbar type vertebral bodies noted. There is no fracture or subluxation of the lumbar spi ne. Vertebral bodies maintain normal height and alignment. No suspicious bone marrow signal abnormali ty seen. There are probable small intraosseous hemangiomas noted. At L1-L2, there is no disc bulge or herniation. No spinal canal stenosis or neural foraminal narrowin g. At L2-L3, there is no disc bulge or herniation. No spinal canal stenosis or neural foraminal narrowin g. At L3-L4, there is no disc bulge or herniation. There is mild facet arthropathy. No spinal canal sten osis or neural foraminal narrowing. At L4-L5, there is mild disc bulge with facet joint arthropathy, which contribute to mild to moderate thecal sac compression focally. Neural foramina are preserved. At L5-L6, there is minimal disc bulge and facet arthropathy. No spinal canal stenosis. There is mild left neural foraminal narrowing. Paravertebral soft tissues are unremarkable. Impression: Multifactorial mild to moderate thecal sac compression at L4-L5, as detailed above. 6 lumbar type vertebral bodies noted. Reviewed, dictated and finalized at [facility]. 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 6 lumbar type vertebral bodies noted.
== END 2022-05-06 10:58 | disposition home or self-care (01) ==
PROVIDERS: PCP Clinical Nurse Specialist; Visit Provider Clinical Nurse Specialist
DX: M54.10 Radiculopathy, site unspecified (principal)
CPT/HCPCS: 72148

== ENCOUNTER → 2022-06-28 15:35 | Outpatient (CLI) | payer BC, OTHER, SELFPAY ==
--- NOTE | ~2022-06-28 | US_ITS ---
EXAMINATION: US soft tissue chest HISTORY: Palpable abnormality of the outer left chest wall adjacent to the breast TECHNIQUE: Targeted ultrasound is performed in the area of clinical interest. FINDINGS: No suspicious cystic or solid mass is identified to correlate with the reported palpable ab normality of concern. IMPRESSION: No specific sonographic correlate is identified for the reported palpable abnormality of concern. Fur ther evaluation at this time should be based on clinical assessment. Continued follow-up physical exa mination is recommended. BI-RADS Category 1: Negative Reviewed, dictated and finalized at location [facility]. IOPULMONARY TECHNICIAN AND EEG TECH IMPRESSION: No specific sonographic correlate is identified for the reported palpable abnor mality of concern. Further evaluation at this time should be based on clinical assessment. Continued follow-up physical examination is recommended. BI-RADS Category 1: Negative
== END ==
PROVIDERS: PCP Family Medicine; Visit Provider Clinical Nurse Specialist
DX: R22.2 Localized swelling, mass and lump, trunk (principal)
CPT/HCPCS: 76604

== ENCOUNTER 2022-06-28 15:42 | Outpatient (CLI) | payer BC, OTHER, SELFPAY ==
--- NOTE | ~2022-06-28 | MM_ITS ---
EXAMINATION: MM screening maximino BI w kristin HISTORY: Screening mammogram TECHNIQUE: Craniocaudal and mediolateral oblique 3-D tomosynthesis images were obtained and synthetic 2-D images were generated. CAD analysis was submitted and interpreted. COMPARISON: None, baseline BREAST PARENCHYMAL COMPOSITION: There are scattered areas of fibroglandular density. FINDINGS: No suspicious mass, calcification, or architectural distortion are identified in either kash ast to suggest malignancy. IMPRESSION: 1. No mammographic evidence of malignancy. 2. Recommend routine screening mammography in one year. BI-RADS Category 1: Negative Reviewed, dictated and finalized at location [facility]. 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
== END 2022-06-28 15:43 ==
PROVIDERS: PCP Family Medicine; Visit Provider Obstetrics & Gynecology
DX: Z12.31 Encounter for screening mammogram for malignant neoplasm of breast (principal)
CPT/HCPCS: 77063; 77067

== ENCOUNTER 2023-09-20 12:15 | Outpatient (CLI) | payer OTHER, SELFPAY ==
[2023-09-20 13:35] LABS: Basophils Absolute Auto 0.1 K/mm3 (0.0-0.1); Basophils Percent Auto 1.4 % (0.2-1.2); Eosinophils Absolute Auto 0.3 K/mm3 (0-0.3); Eosinophils Percent Auto 3.8 % (0-4.4); Hematocrit 43.6 % (37.0-47.0); Hemoglobin 14.2 g/dL (12.0-15.0); Immature Granulocyte Absolute 0.03 K/mm3 (0.00-0.031); Immature Granulocyte Percent A 0.4 % (0-0.5); Lymphocytes Absolute Auto 2.84 K/mm3 (0.9-3.2); Lymphocytes Percent Auto 33.3 % (18.3-44.2); Mean Corpuscular HGB Conc 32.6 g/dl (32-36); Mean Corpuscular Hemoglobin 29.8 pg (26-34); Mean Corpuscular Volume 91.4 fl (80-100); Mean Platelet Volume 10.5 fl (7.4-10.4); Monocytes Absolute Auto 0.7 K/mm3 (0.1-0.6); Monocytes Percent Auto 7.9 % (2.6-8.5); Neutrophils Absolute Auto 4.6 K/mm3 (1.3-6.7); Neutrophils Percent Auto 53.2 % (45.5-73.1); Platelet Count Result 404 k/mm3 (150-375); Red Blood Count 4.77 M/mm3 (4.2-5.4); Red Cell Distribution Width 13.5 % (11.5-14.5); White Blood Count 8.5 K/mm3 (4.5-10.0)
[2023-09-20 13:38] LABS: Appearance Urine Cloudy (Clear); Bacteria Urine 4+ /hpf; Bilirubin Urine Negative (Negative); Blood Urine 1+ (Negative); Color Urine Yellow (Yellow); Glucose Urine UA Negative (Negative); Ketones Urine Negative (Negative); Leukocyte Esterase Ur 2+ LEU/UL (Negative); Nitrate Urine Negative (Negative); Protein Urine Negative (Negative); Specific Grav Ur 1.028 (1.001-1.035); Squamous Epithelial Cell Urine Moderate /hpf (Few); Urobilinogen Urine 0.2 mg/dL (<2.0); WBC Urine >100 /hpf (0-3)
[2023-09-20 13:47] LABS: Alanine Aminotransferase 17 U/L (6-35); Albumin Level 4.4 g/dL (3.5-5.1); Alkaline Phosphatase 84 U/L (38-126); Anion Gap 7 mmol/L (4-12); Aspartate Amino Transferase 20 U/L (14-36); Bilirubin,Total 0.6 mg/dL (0.2-1.3); Blood Urea Nitrogen 13 mg/dL (7-17); Carbon Dioxide 29 mmol/L (22-30); Chloride 101 mmol/L (98-107); Cholesterol 202 mg/dL (0-200); Estimated Glomerular Filt Rate > 60; Glucose 104 mg/dL (65-110); HDL Direct 50 mg/dL; Potassium 3.8 mmol/L (3.4-5.0); Sodium 137 mmol/L (137-145); Triglycerides 216 mg/dL (<150)
[2023-09-20 13:55] LABS: Add Urine Microscopic? YES
[2023-09-20 13:58] LABS: LDL Cholesterol Direct 123 mg/dL
[2023-09-20 14:58] LABS: Folic Acid 17.2 ng/mL (2.76->20)
[2023-09-20 18:58] LABS: Iron 145 ug/dL (37-170)
[2023-09-20 19:09] LABS: Percent Iron Saturation 37 % (20-50)
[2023-09-20 22:30] LABS: Hemoglobin A1C 5.8 % (<5.7)
[2023-09-25 12:33] LABS: Vitamin D 1,25 (OH)2 Total 25 pg/mL (18-72); Vitamin D2 1,25 (OH)2 <8 pg/mL; Vitamin D3 1,25 (OH)2 25 pg/mL
== END 2023-09-20 12:16 | disposition home or self-care (01) ==
LOC: ANHLAB 12:17
PROVIDERS: PCP Family Medicine; Visit Provider Family Medicine
DX: E78.2 Mixed hyperlipidemia (principal); E55.9 Vitamin D deficiency, unspecified; N93.9 Abnormal uterine and vaginal bleeding, unspecified; I10 Essential (primary) hypertension; R20.0 Anesthesia of skin; R20.2 Paresthesia of skin
CPT/HCPCS: 36415; 80053; 80061; 81001; 82607; 82652; 82728; 82746; 83036; 83540; 83550; 84443; 85025

== ENCOUNTER 2024-04-07 11:02 | Emergency (ER) | payer OTHER, SELFPAY ==
--- NOTE | 2024-04-07 11:05 | ED_ITS ---
HPI - Female Genitourinary General Chief complaint: Urogenital-Female Stated complaint: Back Pain/UTI Time Seen by Provider: 04/07/24 11:05 Source: patient Mode of arrival: ambulatory Limitations: no limitations History of Present Illness HPI Narrative: Patient is a 43-year-old female who presents with 1 week of low back pain. Patient states last few days she has had urinary discomfort but no changes in urinary frequency, color or odor. Denies any blood in urine or history of kidney stones. Patient has had previous back injury and was given muscle relaxers by PCP. PCP also called in Macrobid but wanted a clean urine catch and culture. 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 Patient states in the past she has gotten steroid injections but current PCP does not do those. MD elicited complaint: dysuria Related Data Allergies Allergy/AdvReac Type Severity Reaction Status Date / Time Penicillins Allergy Mild Rash Verified 01/02/24 15:58 amoxicillin Allergy Unknown Rash Verified 01/02/24 15:58 Cephalosporins Allergy Unknown Rash Verified 01/02/24 15:58 Sulfa (Sulfonamide Allergy Unknown Rash Verified 01/02/24 15:58 Antibiotics) sulfamethizole Allergy Unknown Rash Verified 01/02/24 15:58 trimethoprim Allergy Unknown Rash Verified 01/02/24 15:58 metronidazole (From Flagyl) AdvReac Intermediate Dizziness Verified 01/02/24 15:58 Review of Systems Review of Systems: All systems reviewed & are unremarkable except as noted in HPI and below Constitutional: Constitutional: Denies chills, Denies fever(s), Denies headache(s), Denies malaise and Denies weakness Eyes: Eyes: Denies change in vision, Denies eye discharge and Denies irritation ENT: Denies otalgia, Denies headache(s), Denies nasal congestion, Denies nasal discharge, Denies sinus pain and Denies sore throat Cardiovascular: Cardiovascular: Denies chest pain, Denies edema, Denies palpitations and Denies dyspnea Respiratory: Respiratory: Denies cough and Denies dyspnea Gastrointestinal: Gastrointestinal: Denies abdominal pain, Denies diarrhea, Denies nausea and Denies vomiting Genitourinary: Genitourinary: Denies hematuria, Denies nocturia, Reports dysuria, Denies flank pain and Denies urinary urgency Musculoskeletal: Musculoskeletal: Reports back pain and Denies numbness Integumentary/Breasts: Skin/Breast: Denies pruritus and Denies rash Neurologic: Denies headache(s), Denies numbness and Denies weakness Psychiatric: Psychiatric: Reports no additional psychiatric complaints Endocrine: Endocrine: Denies palpitations [facility] Past Medical History Medical History Prediabetes Heartburn Anxiety B12 deficiency Acute bronchitis Candidiasis of breast Urinary frequency Dysuria Gastritis (~09/08/20) moderate gastritis on EGD 09/08/2020. Diverticulosis multiple diverticula on colonoscopy 06/25/2020. Back pain with radiculopathy Back Pain Screening for tuberculosis Swelling, mass, or lump in chest Hospital discharge follow-up Screening mammogram for breast cancer Mammogram normal 06/28/2022. Encounter for gynecological examination (general) (routine) without abnormal findings Diverticulitis large intestine w/o perforation or abscess w/o bleeding (~11/2016) history of recurrent sigmoid diverticulitis with 5 or 6 episodes since November,. Colonoscopy 06/25/2020 with diverticulosis but otherwise normal with recheck in 10 years. Abdominal pain Epigastric pain Obesity, morbid, BMI 40.0-49.9 Diarrhea Adverse reaction to antibiotic Nausea HTN (hypertension) Depression Blood in stool Loose stools History of diverticulitis Post depression Solitary pulmonary nodule PVC (premature ventricular contraction) Frequent PVCs on Holter monitor on 09/11/2018. Bronchitis Falls Fainting Chicken pox Migraine headache Hemorrhoids Pneumonia Elevated BP without diagnosis of hypertension Surgical History Surgical History History of cholecystectomy Cholecystectomy planned 2017 H/O removal of cyst right arm,1989 Family History Family History Mother Diabetes mellitus Hypertension Depression Father Patient's father is in good health Alcoholism Other Diabetes mellitus Cerebrovascular accident Hypertension Other Family history of colonic diverticulitis Social History Social History Smoking packs per day: 1 Smoking cigarettes per day: 20.0 Years smoked: 10 Smoking pack-years: 10.00 Smoking status: Former smoker Tobacco type: cigarettes Smoking end date: 04/23/12 Alcohol intake: current Drinks per week: 4 Alcohol use details: SOCIAL Substance use: current Substance use type: unknown Do You Feel Safe in your Home?: Yes Lack of Transportation: No Lack of Food: Never True Current Housing: I Have Housing Concerned About Future Housing: No Difficulty Paying Gas/Electric Bills: No Difficulty Paying for Meds: No Currently Unemployed: No Education: Bachelor's Degree Difficulty w/ Childcare or Family Care: No Living arrangements: with family 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 There is no relevant family history pertinent to the presenting complaint. Exam Const: General: cooperative, healthy appearing, comfortable, no acute distress and well nourished Nutritional Appearance: well nourished Orientation/consciousness: patient oriented x3 HENMT: Head: normocephalic and atraumatic Ears: external ears normal Face/Nose/Sinus: Normal external nose present, Normal nares present and normal facial exam Face and sinus: normal facial exam Eyes: General: appearance normal, both eyes and all related structures Pupils: Equal, round and reactive pupils present EOM: EOMs intact bilaterally Neck: Neck: normal visual inspection, full ROM and supple Chest: Chest palpation & inspection: normal inspection of the chest Resp: Effort & Inspection: normal respiratory effort and able to speak in complete sentences Cardio: Rate: regular rate Rhythm: regular rhythm GI: Inspection: normal to inspection GI Palp: No abdominal tenderness and Yes Soft to palpation : General: Yes no CVA tenderness Back/Spine/Pelvis: Back: no CVA tenderness Thoracic/Lumbar Spine: paraspinal muscle tenderness on the left in the upper thoracic, No thoracic spinal tenderness and No lumbar spinal tenderness Skin: General skin exam: normal color and no rashes or lesions noted Neuro: General: patient oriented x3 and moves all extremities Cranial nerves: Yes Equal, round and reactive pupils present Extrem: General: normal to inspection and full ROM Psych: Appearance: grossly normal and well kempt Course Course Emergency Course: Patient is aware of diagnosis, understands and agrees to treatment plan. Anticipatory guidance given. Patient agrees to follow-up as directed and is aware of reasons to seek care at the emergency department. Portions of this record may have been created with voice recognition software Level of Care: Express Care Visit Vital Signs Vital signs: Vital Signs Temperature 36.8 C 04/07/24 11:26 Pulse Rate 70 04/07/24 11:26 Respiratory Rate 20 04/07/24 11:26 Blood Pressure 147/76 H 04/07/24 11:26 Pulse Oximetry 98 04/07/24 11:26 Oxygen Delivery Room Air 04/07/24 11:26 Temperature 36.8 C 04/07/24 11:26 Pulse Rate 70 04/07/24 11:26 Respiratory Rate 20 04/07/24 11:26 Blood Pressure 147/76 H 04/07/24 11:26 Pulse Oximetry 98 04/07/24 11:26 Oxygen Delivery Room Air 04/07/24 11:26 Reviewed MDM - Female Genitourinary MDM Narrative Medical decision making narrative: Exam findings and UA show no sign of UTI. Discussed not taking Macrobid unless we call if culture results are positive. Discussed taking steroids in the morning with food and muscle relaxers at night. patient is non-toxic appearing and is in no distress. No CMT, adnexal tenderness, or evidence of pelvic etiology. Patient is appropriate for outpatient treatment and follow-up. Differential Diagnosis Differential diagnosis: Likely urinary tract infection, bacterial vaginosis, trichomoniasis, cervicitis, vaginitis, cystitis and other (Lumbar strain, lumbar radiculopathy) Medical Records Attestation: I reviewed the patient's medical records. Lab Data Attestation: I reviewed the patient's lab results. Labs: Lab Results 04/07/24 Range/Units 11:55 POC Urine Color Yellow POC Urine Clarity Cloudy POC Urine pH 6.0 POC Ur Specif Irving 1.030 POC Urine Protein 1+ (Negative) POC Ur Glucose (UA) Negative (Negative) POC Urine Ketones Negative (Negative) POC Urine Blood Negative (Negative) POC Urine Nitrite Negative (Negative) POC Urine Bilirubin 1+ (Negative) POC Urine Urobilinogen 0.2 POC U Leukocyte Esteras Negative (Negative) Discharge Plan Discharge Clinical Impression: Lumbar strain Qualifiers: Encounter type: initial encounter Qualified Code(s): S39.012A - Strain of muscle, fascia and tendon of lower back, initial encounter Patient Disposition: Home, Self-Care Condition: Stable Instructions: Low Back Strain (ED), Lower Back Exercises (ED) Additional Instructions: Please follow up with your Primary Care Doctor within 48-72 hours - call for an appointment. Walking and other gentle exercising several times a week has been shown to improve back pain; bed rest is not recommended. Take steroids in the morning with food, do not take ibuprofen while taking steroids, take muscle relaxers every 8 hours as needed for muscle spasm. do not drive or make any important decisions while on this medication for it can make you drowsy. You may apply heat or cold to the area as needed. Contact your doctor or go to the emergency department if you develop problems with bladder or bowel function, weakness or loss of feeling in one or both of your legs, or any other serious concerns. Patient Language: Armenian Prescriptions: New prednisone 20 mg tablet 40 mg PO DAILY 5 Days Qty: 10 0RF No Action metoprolol tartrate 25 mg tablet 25 mg PO BID Qty: 180 3RF fluconazole 150 mg tablet 150 mg PO ONCE Qty: 2 0RF Rx Instructions: as a single dose, repeat after 72 hours if symptoms persist nitrofurantoin monohyd/m-cryst [Macrobid] 100 mg capsule 100 mg PO Q12H 7 Days Qty: 14 0RF Rx Instructions: must administer with a meal/food cyclobenzaprine 10 mg tablet 10 mg PO BID PRN (Reason: muscle spasm) Qty: 20 0RF Follow-up/Referrals: Abdulkadir Del Rio MD [Primary Care Provider] - 3 Days Stand Alone Forms: Work/School Release IP Time of Disposition: 11:56
[2024-04-07 11:26] VITALS: BP 147/76; PULSE 70; RESP 20; TEMP 36.8; O2SAT 98
[2024-04-07 12:06] LABS: EDUAAPPEAR Cloudy; EDUABILI 1+ (Negative); EDUABLOOD Negative (Negative); EDUACOLOR1 Yellow; EDUAGLUCOSE Negative (Negative); EDUAKETONE Negative (Negative); EDUALEUKO Negative (Negative); EDUANITRATE Negative (Negative); EDUAPROTEIN 1+ (Negative); EDUAUROBILI 0.2
== END 2024-04-07 12:05 | disposition home or self-care (01) ==
PROVIDERS: Emergency Provider Nurse Practitioner Family; PCP Family Medicine
DX: S39.012A Strain of muscle, fascia and tendon of lower back, initial encounter (principal); X58.XXXA Exposure to other specified factors, initial encounter; I10 Essential (primary) hypertension; R73.03 Prediabetes; R12 Heartburn; E66.01 Morbid (severe) obesity due to excess calories; Z68.42 Body mass index [BMI] 45.0-49.9, adult
CPT/HCPCS: 81003; 87086; 99213; G0463

== ENCOUNTER 2024-06-19 01:44 | Inpatient (IN) | payer BC, SELFPAY ==
[2024-06-19] VITALS (8 sets, daily range): BP systolic 92–175; BP diastolic 67–102; PULSE 61–116; RESP 17–20; TEMP 36.4–36.7; O2SAT 86–97; BMI 49.0
--- OUTSIDE RECORDS SUMMARY | 2024-06-19 01:47 | XMS_ITS | Clinical Summary ---
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
--- OUTSIDE RECORDS SUMMARY | 2024-06-19 01:47 | XMS_ITS | Encounter Summary ---
Author Organization [facility] Address [address] [place] [address] Phone Care Team Providers Care Attorney Recruiter Name Role Phone Heraclio Morley DO Primary Care Provider [phone] Abdulkadir Del Rio MD Primary Care Provider [phone] Encounter Details Date Type Department Care Team (Late st Contact Info) Description 08/30/2022 Orders Only [facility] Scanning, Provider Social History Tobacco Use Types Packs/Day Years Used Date Smoking Tobacco: Never Comments Unknown Sex and Gender Information Value Date Recorded Sex Assigned at Not on file 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 Gender Identity Not on file Sexual Orientation Not on file documented as of this encounter Plan of Treatment Not on file documented as of this encounter Procedures Procedure Name Priority Date/Time Associated Diagnosis Comments GI - RESULT 08/30/2022 1:43 PM CDT documented in this encounter Results * GI - RESULT (08/30/2022 1:43 PM CDT) Anatomical Region Laterality Modality Other us Provider Scanning Final Result documented in this encounter Visit Diagnoses Not on filedocumented in this encounter Care Teams Attorney Recruiter Relationship Specialty Start Date End Date Heraclio Morley DO PCP - General Internal Medicine 09/09/18 09/04/22 Abdulkadir Del Rio MD [address] [address] PCP - General Family Medicine 09/05/22 documented as of this encounter
--- OUTSIDE RECORDS SUMMARY | 2024-06-19 01:47 | XMS_ITS | Referral Summary ---
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 O[employer] Care Teams Professor Of Biostatistics Relationship Specialty Start Date End Date Abdulkadir Del Rio MD [address] [address] PCP - General Family Medicine 09/05/22
[2024-06-19 03:54] LABS: BEDSIDEPREGUCG Negative (Negative)
[2024-06-19 03:58] LABS: Basophils Absolute Auto 0.1 K/mm3 (0.0-0.1); Basophils Percent Auto 0.7 % (0.2-1.2); Eosinophils Absolute Auto 0.2 K/mm3 (0-0.3); Eosinophils Percent Auto 1.4 % (0-4.4); Hematocrit 37.5 % (37.0-47.0); Hemoglobin 12.5 g/dL (12.0-15.0); Immature Granulocyte Absolute 0.04 K/mm3 (0.00-0.031); Immature Granulocyte Percent A 0.4 % (0-0.5); Lymphocytes Absolute Auto 1.79 K/mm3 (0.9-3.2); Lymphocytes Percent Auto 15.7 % (18.3-44.2); Mean Corpuscular HGB Conc 33.3 g/dl (32-36); Mean Corpuscular Hemoglobin 30.2 pg (26-34); Mean Corpuscular Volume 90.6 fl (80-100); Monocytes Absolute Auto 0.9 K/mm3 (0.1-0.6); Monocytes Percent Auto 7.9 % (2.6-8.5); Neutrophils Absolute Auto 8.4 K/mm3 (1.3-6.7); Neutrophils Percent Auto 73.9 % (45.5-73.1); Platelet Count Result 315 k/mm3 (150-375); Red Blood Count 4.14 M/mm3 (4.2-5.4); Red Cell Distribution Width 13.7 % (11.5-14.5); White Blood Count 11.4 K/mm3 (4.5-10.0)
[2024-06-19 04:04] LABS: Add Urine Microscopic? YES; Appearance Urine Cloudy (Clear); Bacteria Urine 1+ /hpf; Bilirubin Urine Negative (Negative); Blood Urine 2+ (Negative); Color Urine Yellow (Yellow); Glucose Urine UA Negative (Negative); Ketones Urine Negative (Negative); Leukocyte Esterase Ur 1+ LEU/UL (Negative); Nitrate Urine Negative (Negative); Non Pathogenic Casts 0-2; Protein Urine Negative (Negative); Specific Grav Ur 1.011 (1.001-1.035); Squamous Epithelial Cell Urine Few /hpf (Few); Urobilinogen Urine 0.2 mg/dL (<2.0); pH Urine 5.5 (5.0-9.0)
[2024-06-19 04:08] LABS: Alanine Aminotransferase 20 U/L (6-35); Albumin Level 3.9 g/dL (3.5-5.1); Alkaline Phosphatase 79 U/L (38-126); Anion Gap 9 mmol/L (4-12); Aspartate Amino Transferase 19 U/L (14-36); Bilirubin,Total 0.6 mg/dL (0.2-1.3); Blood Urea Nitrogen 9 mg/dL (7-17); Calcium 8.8 mg/dL (8.4-10.2); Carbon Dioxide 27 mmol/L (22-30); Chloride 100 mmol/L (98-107); Estimated CRCL calculation 162 ml/min; Estimated Glomerular Filt Rate > 60; Glucose 124 mg/dL (65-110); Lipase 28 U/L (23-300); Potassium 3.9 mmol/L (3.4-5.0); Sodium 136 mmol/L (137-145)
--- NOTE | 2024-06-19 04:13 | ED.ABDPAIN ---
HPI - Abdominal Pain General Chief Complaint: Abdominal Pain Stated Complaint: abd pain Time Seen by Provider: 06/19/24 04:01 History of Present Illness HPI narrative: 44-year-old female with a history of recurrent diverticulitis with previous perforation presenting to the emergency room with left lower quadrant abdominal pain that started last night and into this afternoon. Endorses a mild fever at home that responded nicely Tylenol. She is not any acute distress, denies any nauseousness, vomiting, diarrhea, constipation. No chest pain shortness a breath. States it feels somewhat similar to last time she had diverticulitis last year. No history of surgeries but she was told that she might need colonic resection of this is a recurrent issue but she is hesitant about getting that procedure done. Related Data Allergies Allergy/AdvReac Type Severity Reaction Status Date / Time Penicillins Allergy Mild Rash Verified 06/19/24 03:16 amoxicillin Allergy Unknown Rash Verified 06/19/24 03:16 Cephalosporins Allergy Unknown Rash Verified 06/19/24 03:16 Sulfa (Sulfonamide Allergy Unknown Rash Verified 06/19/24 03:16 Antibiotics) sulfamethizole Allergy Unknown Rash Verified 06/19/24 03:16 trimethoprim Allergy Unknown Rash Verified 06/19/24 03:16 metronidazole (From Flagyl) AdvReac Intermediate Dizziness Verified 06/19/24 03:16 Review of Systems Review of Systems: As reviewed [facility] Past Medical History Medical History Prediabetes Heartburn Anxiety B12 deficiency Acute bronchitis Candidiasis of breast Urinary frequency Dysuria Gastritis (~09/08/20) moderate gastritis on EGD 09/08/2020. Diverticulosis multiple diverticula on colonoscopy 06/25/2020. Back pain with radiculopathy Back Pain Screening for tuberculosis Swelling, mass, or lump in chest Hospital discharge follow-up Screening mammogram for breast cancer Mammogram normal 06/28/2022. Encounter for gynecological examination (general) (routine) without abnormal findings Diverticulitis large intestine w/o perforation or abscess w/o bleeding (~11/2016) history of recurrent sigmoid diverticulitis with 5 or 6 episodes since November,. Colonoscopy 06/25/2020 with diverticulosis but otherwise normal with recheck in 10 years. Abdominal pain Epigastric pain Obesity, morbid, BMI 40.0-49.9 Diarrhea Adverse reaction to antibiotic Nausea HTN (hypertension) Depression Blood in stool Loose stools History of diverticulitis Post depression Solitary pulmonary nodule PVC (premature ventricular contraction) Frequent PVCs on Holter monitor on 09/11/2018. Bronchitis Falls Fainting Chicken pox Migraine headache Hemorrhoids Pneumonia Elevated BP without diagnosis of hypertension Surgical History Surgical History History of cholecystectomy Cholecystectomy planned 2017 H/O removal of cyst right arm,1989 Family History Family History Mother Diabetes mellitus Hypertension Depression Father Patient's father is in good health Alcoholism Other Diabetes mellitus Cerebrovascular accident Hypertension Other Family history of colonic diverticulitis Social History Social History Smoking packs per day: 1 Smoking cigarettes per day: 20.0 Years smoked: 10 Smoking pack-years: 10.00 Smoking status: Former smoker Tobacco type: cigarettes Smoking end date: 04/23/12 Alcohol intake: current Drinks per week: 4 Alcohol use details: SOCIAL Substance use: current Substance use type: unknown Do You Feel Safe in your Home?: Yes Lack of Transportation: No Lack of Food: Never True Current Housing: I Have Housing Concerned About Future Housing: No Difficulty Paying Gas/Electric Bills: No Difficulty Paying for Meds: No Currently Unemployed: No Education: Bachelor's Degree Difficulty w/ Childcare or Family Care: No Living arrangements: with family 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 Mucous membranes moist. NECK: Supple. CHEST: [Clear to auscultation. No respiratory distress.] HEART: [Regular rate and rhythm]. No murmur heard. [Normal peripheral pulses.] ABDOMEN: Protuberant abdomen but soft, tender to palpation left lower quadrant without peritonitis, [No rigidity or guarding] EXTREMITIES: Normal range of motion. [No edema.] SKIN: Warm, dry, no rash. NEURO: [No focal deficits]. Alert and oriented [x3.] PSYCH: [Normal mood and affect.] Course Vital Signs Vital signs: Vital Signs Temperature 36.7 C 06/19/24 01:48 Pulse Rate 116 H 06/19/24 01:48 Respiratory Rate 20 06/19/24 01:48 Blood Pressure 163/102 H 06/19/24 01:48 Pulse Oximetry 94 06/19/24 01:48 Oxygen Delivery Room Air 06/19/24 01:48 Temperature 36.7 C 06/19/24 01:48 Pulse Rate 81 06/19/24 06:31 Respiratory Rate 17 06/19/24 06:31 Blood Pressure 134/96 H 06/19/24 06:31 Pulse Oximetry 86 L 06/19/24 06:31 Oxygen Delivery Room Air 06/19/24 01:48 MDM - Abdominal Pain MDM Narrative Medical decision making narrative: 44-year-old female with history of recurrent diverticulitis and previous diverticular perforation presenting to the emergency room with chief complaint of left lower quadrant abdominal pain associated with subjective fever at home. She is mildly hypertensive here but not any acute distress, no fever, tachycardia, tachypnea or hypoxia. She has a mildly tender abdomen left lower quadrant which raises suspicion for intra-abdominal process such as diverticulitis, perforated diverticulosis, perforated diverticulitis, abscess formation, less likely other intra-abdominal process such as appendicitis or constipation. Patient will be treated with a combination medications including Dilaudid and Zofran as well as obtain laboratory studies including CBC, CMP, lipase, test and urinalysis. A CT scan with IV contrast was obtained for left lower quadrant evaluation. Patient will be re-evaluated frequently and placed on cardiac sonographer and pulse oximetry. Patient has a mild white count but normal renal and hepatic function. Negative lactic acid. Urinalysis with some bacteria and white cells but no urinary infection symptoms according to the patient. Negative test. Patient CT scan report shows and gas and fluid collection in the abdominal region near her uterus next 2 adjacent loops of bowel consistent with a abscess related to prior diverticulitis. Abscess measures 2 x [address] Golden from General surgery who provided recommendations for IV antibiotics rather than surgical drainage or interventional radiology drainage. Recommendations for admission to hospitalist service. Patient was re-evaluated with improvement her pain control. She was given her updated diagnosis and laboratory evaluations. She was comfortable with admission. I spoke to the hospitalist who accepted the patient to a medical-surgical bed at this time. Metronidazole and ciprofloxacin added on as well as pain control medications. Medical Records Attestation: I reviewed the patient's medical records. Lab Data Attestation: I reviewed the patient's lab results. 06/19/24 03:50 06/19/24 03:50 Labs: Lab Results 06/19/24 06/19/24 Range/Units 03:50 03:52 WBC 11.4 H (4.5-10.0) K/mm3 RBC 4.14 L (4.2-5.4) M/mm3 Hgb 12.5 (12.0-15.0) g/dL Hct 37.5 (37.0-47.0) % MCV 90.6 (80-100) fl MCH 30.2 (26-34) pg MCHC 33.3 (32-36) g/dl RDW 13.7 (11.5-14.5) % Plt Count 315 (150-375) k/mm3 MPV 10.0 (7.4-10.4) fl Immature Gran % (Auto) 0.4 (0-0.5) % Neut % (Auto) 73.9 H (45.5-73.1) % Lymph % (Auto) 15.7 L (18.3-44.2) % [place] % (Auto) 7.9 (2.6-8.5) % Eos % (Auto) 1.4 (0-4.4) % Baso % (Auto) 0.7 (0.2-1.2) % Lymph # (Auto) 1.79 (0.9-3.2) K/mm3 [place] # (Auto) 0.9 H (0.1-0.6) K/mm3 Eos # (Auto) 0.2 (0-0.3) K/mm3 Baso # (Auto) 0.1 (0.0-0.1) K/mm3 Abs Immat Gran (auto) 0.04 H (0.00-0.031) K/mm3 Absolute Neuts (auto) 8.4 H (1.3-6.7) K/mm3 Absolute Nucleated RBC 0.000 (0.0-0.012) K/mm3 Nucleated RBC % 0.0 (0.0-0.2) % Sodium 136 L (137-145) mmol/L Potassium 3.9 (3.4-5.0) mmol/L Chloride 100 (98-107) mmol/L Carbon Dioxide 27 (22-30) mmol/L Anion Gap 9 (4-12) mmol/L BUN 9 (7-17) mg/dL Creatinine 0.57 L (0.7-1.0) mg/dL Estim Creat Clear Calc 162 ml/min Estimated GFR > 60 (59 - ) Glucose 124 H (65-110) mg/dL Calcium 8.8 (8.4-10.2) mg/dL Total Bilirubin 0.6 (0.2-1.3) mg/dL AST 19 (14-36) U/L ALT 20 (6-35) U/L Alkaline Phosphatase 79 (38-126) U/L Total Protein 7.0 (6.3-8.2) g/dL Albumin 3.9 (3.5-5.1) g/dL Lipase 28 (23-300) U/L Urine Color Yellow (Yellow) Urine Appearance Cloudy H (Clear) Urine pH 5.5 (5.0-9.0) Ur Specific [place] 1.011 (1.001-1.035) Urine Protein Negative (Negative) mg/dL Urine Glucose (UA) Negative (Negative) mg/dL Urine Ketones Negative (Negative) mg/dL Ur Blood (Man) 2+ H (Negative) Urine Nitrate Negative (Negative) Urine Bilirubin Negative (Negative) Urine Urobilinogen 0.2 (<2.0) mg/dL Leukocyte Esterase Rfl 1+ H (Negative) DARRELL/UL Urine RBC 3-5 H (0-2) /hpf Urine WBC 11-20 H (0-3) /hpf Ur Squamous Epith Cells Few (Few) /hpf Urine Bacteria 1+ H /hpf Urine Casts 0-2 POC Urine HCG, Qual Negative (Negative) Imaging Data Attestation: I personally reviewed and interpreted this imaging study as follows: My impression: 2 x 3 cm abscess along the superior aspect of the uterus adjacent to bowel loops with diverticular consistent with abscess secondary to prior diverticulitis. No current active diverticulitis. No perforation Discharge Plan Discharge Clinical Impression: Intra-abdominal abscess, History of colonic diverticulitis, Abdominal pain Patient Disposition: Still a Patient Condition: Stable Time of Disposition: 06:40
[2024-06-19] MEDS: HYDROmorphone HCL INJ (*CRX) 2 MG/ML VIAL 0.5 MG IV PUSH (04:18)
[2024-06-19] MEDS: ONDANSETRON INJ 4 MG/2 ML VIAL IV PUSH ×2 (04:18→16:45)
--- OUTSIDE RECORDS SUMMARY | 2024-06-19 04:19 | XMS_ITS | Encounter Summary ---
Author Organization [facility] Address [address] [place] [address] Phone Care Team Providers Care Manager Athletics Name Role Phone Heraclio Morley DO Primary Care Provider [phone] Abdulkadir Del Rio MD Primary Care Provider [phone] Encounter Details Date Type Department Care Team (Late st Contact Info) Description 08/30/2022 Orders Only [facility] Scanning, Provider Social History Tobacco Use Types Packs/Day Years Used Date Smoking Tobacco: Never Comments Unknown Sex and Gender Information Value Date Recorded Sex Assigned at Not on file 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
--- OUTSIDE RECORDS SUMMARY | 2024-06-19 04:19 | XMS_ITS | Clinical Summary ---
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
--- OUTSIDE RECORDS SUMMARY | 2024-06-19 04:19 | XMS_ITS | Referral Summary ---
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
[2024-06-19] MEDS: CIPROFLOXACIN 400 MG/D5W 200ML 200 ML 200 MG IVPB (06:15)
[2024-06-19] MEDS: HYDROmorphone HCL INJ (*CRX) 1 MG/ML SYR 0.5 MG IV PUSH ×3 (06:22→15:51)
[2024-06-19 06:33] LABS: Lactic Acid Reflex 0.9 mmol/L (0.7-2.0)
--- NOTE | 2024-06-19 07:09 | ADMGEN ---
This patient, Donya Walter, was admitted to [facility] Surg Room 329-01. Patient/family oriented to hospital policies and general routines including ID bracelet, bed and alarms, visiting hours, pain management, procedures, bathroom and other care routines, personal items, smoking policy, room service/diet, and visiting hours. Information on how to activate the Rapid Response Team has been discussed. Patient/Family are encouraged to report perceived risks to care and to ask questions if they do not understand what they are told or what they should do.
[2024-06-19] MEDS: LACTATED RINGERS 1,000 ML 125 ML IV CONT ×2 (07:26→21:14)
--- NOTE | 2024-06-19 08:14 | PM.IMHP ---
H&P: [facility] History of Present Illness Date/Time: 06/19/24 08:14 Chief Complaint: Diverticulitis Narrative: 44-year-old female with a history of recurrent diverticulitis with previous perforation presenting to the emergency room with left lower quadrant abdominal pain that started last night and into this afternoon. Endorses a mild fever at home that responded nicely Tylenol. She is not any acute distress, denies any nauseousness, vomiting, diarrhea, constipation. No chest pain shortness a breath. States it feels somewhat similar to last time she had diverticulitis last year. No history of surgeries but she was told that she might need colonic resection of this is a recurrent issue but she is hesitant about getting that procedure done. ED labs: WBC 11.4, HgB 12.5, PLT 315, Na 136, K 3.9, Cr 0.57, AST 19,ALT 20 UA:Nitrate -ve,LE 1+ CT abd/Pelvis:Mesenteric inflammatory stranding with small associated abscess along the superior margin of the uterus, likely secondary to colonic diverticulitis. Abscess related to adjacent small bowel is less favored, although not excluded. According to the record review patient has multiple history of diverticulitis starting from 2017. Patient also had cholecystectomy 2018 which was complicated with abdominal discomfort and diarrhea for which she was given cholestyramine but gave her constipation. Patient underwent colonoscopy 06/25/2020 which showed diverticulosis without perforation or abscess without bleeding and internal hemorrhoids. Patient underwent endoscopy 09/08/2020 which shows gastritis. Currently patient is admitted in the setting of diverticulitis. In the ED patient was started metronidazole but patient complained of dizziness and it has been included as allergy. Currently patient on ciprofloxacin but started on metronidazole IV. If patient complains about any allergic symptoms will discontinue. As per surgery they will continue to monitor with serial abdominal examination and lab. As per surgical team prefer outpatient follow-up for surgical management of the recurrent diverticulitis. Do not recommend surgical management in the acute phase of diverticulitis that would be reserved for the perforated diverticulitis with signs of peritonitis or sepsis since the will be a high risk requiring ostomy. Review of Systems Review of Systems: As reviewed above in HPI [facility] Past Medical History Medical History Prediabetes Heartburn Anxiety B12 deficiency Acute bronchitis Candidiasis of breast Urinary frequency Dysuria Gastritis (~09/08/20) moderate gastritis on EGD 09/08/2020. Diverticulosis multiple diverticula on colonoscopy 06/25/2020. Back pain with radiculopathy Back Pain Screening for tuberculosis Swelling, mass, or lump in chest Hospital discharge follow-up Screening mammogram for breast cancer Mammogram normal 06/28/2022. Encounter for gynecological examination (general) (routine) without abnormal findings Diverticulitis large intestine w/o perforation or abscess w/o bleeding (~11/2016) history of recurrent sigmoid diverticulitis with 5 or 6 episodes since November,. Colonoscopy 06/25/2020 with diverticulosis but otherwise normal with recheck in 10 years. Abdominal pain Epigastric pain Obesity, morbid, BMI 40.0-49.9 Diarrhea Adverse reaction to antibiotic Nausea HTN (hypertension) Depression Blood in stool Loose stools History of diverticulitis Post depression Solitary pulmonary nodule PVC (premature ventricular contraction) Frequent PVCs on Holter monitor on 09/11/2018. Bronchitis Falls Fainting Chicken pox Migraine headache Hemorrhoids Pneumonia Elevated BP without diagnosis of hypertension Surgical History Surgical History History of cholecystectomy Cholecystectomy planned 2017 H/O removal of cyst right arm,1989 Family History Family History Mother Diabetes mellitus Hypertension Depression Father Patient's father is in good health Alcoholism Other Diabetes mellitus Cerebrovascular accident Hypertension Other Family history of colonic diverticulitis Social History Social History Smoking packs per day: 1 Smoking cigarettes per day: 20.0 Years smoked: 10 Smoking pack-years: 10.00 Smoking status: Former smoker Alcohol intake: current Drinks per week: 4 Alcohol use details: SOCIAL Substance use: never Substance use type: does not use Do You Feel Safe in your Home?: Yes Lack of Transportation: No Lack of Food: Never True Current Housing: I Have Housing Concerned About Future Housing: No Difficulty Paying Gas/Electric Bills: No Difficulty Paying for Meds: No Currently Unemployed: No Education: Bachelor's Degree Difficulty w/ Childcare or Family Care: No Living arrangements: with family 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 Gender identity (if verbalized by the patient): Female Sexual Orientation (if Verbalized by the Patient): Straight or Heterosexual Spiritual care concerns: No Meds Home Medications and Allergies Home Medications ?Medication ?Instructions ?Recorded ?Confirmed ?Type metoprolol tartrate 25 mg tablet 25 mg PO BID #180 tabs 04/11/24 06/19/24 Rx Allergies Allergy/AdvReac Type Severity Reaction Status Date / Time Penicillins Allergy Mild Rash Verified 06/19/24 07:10 amoxicillin Allergy Unknown Rash Verified 06/19/24 07:10 Cephalosporins Allergy Unknown Rash Verified 06/19/24 07:10 Sulfa (Sulfonamide Allergy Unknown Rash Verified 06/19/24 07:10 Antibiotics) sulfamethizole Allergy Unknown Rash Verified 06/19/24 07:10 trimethoprim Allergy Unknown Rash Verified 06/19/24 07:10 metronidazole (From Flagyl) AdvReac Intermediate Dizziness Verified 06/19/24 07:10 Vital Signs Vital Signs - 24 hr 06/19/24 01:48 06/19/24 03:13 06/19/24 05:19 Temperature 98.1 F Pulse Rate 116 H 78 72 Respiratory Rate 20 19 19 Blood Pressure 163/102 H 175/67 H Pulse Oximetry 94 95 94 Oxygen Delivery Room Air Oxygen Flow Rate 06/19/24 06:31 06/19/24 06:37 Temperature Pulse Rate 81 Respiratory Rate 17 Blood Pressure 134/96 H Pulse Oximetry 86 L 97 Oxygen Delivery High Flow Nasal Cannula Oxygen Flow Rate 2 Exam Narrative: GENERAL: [Well-appearing, well-nourished, and in no acute distress.] HEAD: [Normocephalic, atraumatic.] EYES: [PERRLA and EOMI.] ENT: Nares clear, no rhinorrhea or epistaxis. Mucous membranes moist. NECK: Supple. CHEST: [Clear to auscultation. No respiratory distress.] HEART: [Regular rate and rhythm]. No murmur heard. [Normal peripheral pulses.] ABDOMEN: Protuberant abdomen but soft, tender to palpation left lower quadrant without peritonitis, [No rigidity or guarding] EXTREMITIES: Normal range of motion. [No edema.] SKIN: Warm, dry, no rash. NEURO: [No focal deficits]. Alert and oriented [x3.] PSYCH: [Normal mood and affect.] H&P: Results Labs Labs: Short CBC 06/19/24 Range/Units 03:50 WBC 11.4 H (4.5-10.0) K/mm3 Hgb 12.5 (12.0-15.0) g/dL Hct 37.5 (37.0-47.0) % Plt Count 315 (150-375) k/mm3 BMP 06/19/24 03:50 Sodium 136 L Potassium 3.9 Chloride 100 Carbon Dioxide 27 BUN 9 Creatinine 0.57 L Glucose 124 H Calcium 8.8 Liver Function 06/19/24 Range/Units 03:50 Total Bilirubin 0.6 (0.2-1.3) mg/dL AST 19 (14-36) U/L ALT 20 (6-35) U/L Alkaline Phosphatase 79 (38-126) U/L Albumin 3.9 (3.5-5.1) g/dL Urine 06/19/24 Range/Units 03:50 Urine Color Yellow (Yellow) Urine Appearance Cloudy H (Clear) Urine pH 5.5 (5.0-9.0) Ur Specific [place] 1.011 (1.001-1.035) Urine Protein Negative (Negative) mg/dL Urine Glucose (UA) Negative (Negative) mg/dL Assessment and Plan Assessment and plan (1) PVC (premature ventricular contraction): Code(s): I49.3 - Ventricular premature depolarization Status: Acute (2) Hyperlipidemia: Onset Date: 02/28/22 Code(s): E78.5 - Hyperlipidemia, unspecified Status: Acute (3) Anxiety: Code(s): F41.9 - Anxiety disorder, unspecified Status: Acute (4) History of colonic diverticulitis: Code(s): Z87.19 - Personal history of other diseases of the digestive system Status: Acute Plan Recurrent diverticulitis Episodes of diverticulitis a from 2017 Bowel rest, IV fluids Reviewed the CT scan Surgery following recommend medical management Serial abdominal exams and lab Protonix 40 b.i.d. Zofran for nausea Monitor electrolytes Pain control ordered Will consider NG and TPN if necessary DC metronidazole due to dizziness Currently on ciprofloxacin Will start aztreonam Underwent EGD and colonoscopy 2020 History of PVCs Continue metoprolol 25 mg p.o. b.i.d. Metabolic syndrome Order lipid panel Ordered HbA1c Quality VTE Prophylaxis VTE prophylaxis: pharmacologic ordered Hospitalist MIPS Advance Care Plan I have confirmed that the patient's Advanced Care Plan is present, code status is documented, or surrogate decision maker is listed in patient medical record.: Yes Medication Reconciliation I have utilized all available resources to obtain, update and review the patients current medications (includes all prescriptions, OTC, herbals, cannabis, and nutritional supplements).: Yes
[2024-06-19] MEDS: METOPROLOL TARTRATE 25 MG TABLET PO ×2 (09:18→21:15)
[2024-06-19] MEDS: PANTOPRAZOLE SODIUM IV 40 MG VIAL IV PUSH ×2 (09:18→21:14)
[2024-06-19] MEDS: HYDROcodone/acetaminophen (*CRX) 5-325 MG TABLET 1 TAB PO (09:19)
[2024-06-19] MEDS: LACTATED RINGERS 1,000 ML 100 ML IV CONT (09:21)
[2024-06-19] MEDS: metroNIDAZOLE 500 MG/ISO 100ML 500 MG/100 ML BAG 100 MG IVPB (09:45)
--- NOTE | 2024-06-19 10:27 | PM.CNGS ---
Assessment and Plan Assessment and plan (1) Intra-abdominal abscess: Code(s): K65.1 - Peritoneal abscess Status: Acute Assessment and Plan: Patient presents with suprapubic abdominal pain x [address] scan of the abdomen and pelvis showed of a small 2.7 cm abscess superior to the uterus, likely secondary to diverticulitis. No large amount of free air. She has no diffuse peritoneal signs on exam. No indication for emergent surgical intervention. We would recommend to continue IV antibiotics and bowel rest with IV fluids for suspected perforated diverticulitis. I will change her diet order to NPO except ice chips. Choices for antibiotics are limited due to her allergies. She was started on ciprofloxacin but has not had the metronidazole due to the listed allergy of dizziness from previous outpatient treatment with metronidazole. We will try IV metronidazole this morning and monitor. Difficult to tell if her dizziness was actually a response to the medication as she has received this medication multiple times in the past. Will continue to monitor with serial abdominal exams and labs. I will also adjust her pain medication to help with pain control. (2) History of colonic diverticulitis: Code(s): Z87.19 - Personal history of other diseases of the digestive system Status: Acute Assessment and Plan: Multiple episodes of recurrent diverticulitis for years typically treated with oral antibiotics as an outpatient. One previous hospitalization for perforated diverticulitis in 2018 that was treated with IV antibiotics. Patient was waiting for an outpatient referral to surgery at [place] [facility] for her recurrent diverticulitis to consider surgical management. Discussed with the patient that surgical management in the acute phase of diverticulitis would be reserved for perforated diverticulitis with signs of peritonitis and/or sepsis and would come with a higher risk for a requiring an ostomy. If her current episode of resolves, then she could eventually have outpatient follow-up to further discuss options of surgical management. (3) BMI 45.0-49.9, adult: Code(s): Z68.42 - Body mass index [BMI] 45.0-49.9, adult Status: Acute Assessment and Plan: Would recommend lifestyle changes to promote weight loss, which would also help with management of her diverticulitis and reduce surgical risks as an outpatient. (4) HTN (hypertension): Code(s): I10 - Essential (primary) hypertension Status: Acute Plan I have discussed the patient's case and plan of care with Dr. Golden. Thank you for allowing us to see the patient in consultation and we will continue to follow along with you. History of Present Illness Consult details Consult date: 06/19/24 Reason for consult: other (Intraabdominal abscess likely secondary to diverticulitis) Requesting physician: Rex Hernandez MD Narrative: This is a 44-year-old woman with PMH of obesity, recurrent diverticulitis, and hypertension, who we have been asked to see in surgical consultation for intra-abdominal abscess secondary to diverticulitis. She reports many recurrent episodes of diverticulitis for years. This is her second hospitalization for perforated diverticulitis. She was admitted in 2018 and successfully treated with IV antibiotics. She reports having outpatient antibiotics from her PCP about once per year for many years for diverticulitis. This episode, she felt like her abdominal pain came on more suddenly. She had an acute onset of pain around 3:30 p.m. yesterday. Her pain progressed over the next few hours. She developed chills around 7:00 p.m. last night and reports a fever of a 101? F. She reports her abdominal pain is typically in the LLQ and this time her pain was in the mid lower abdomen. She denies any recent constipation, nausea, vomiting, diarrhea, or other associated symptoms. She did have some abdominal cramping a few days ago, which she attributed to her typical menstrual cramps while on her menstrual cycle. She came into the ED overnight for evaluation of the abdominal pain. In the ED, she was afebrile. She was initially mildly tachycardic with heart rate of 116, which quickly normalized. Labs [place] [id number] [place] scan of the abdomen and pelvis showed mesenteric inflammatory stranding with small associated abscess measuring 2.7 x 2.6 cm along the superior margin of the uterus, likely secondary to colonic diverticulitis. No free air. She was admitted to the hospitalist service. She was started on ciprofloxacin. Metronidazole was ordered but she has not received this due to a reported allergy. She tells me she has taken metronidazole in the past with ciprofloxacin or levofloxacin for previous episodes of diverticulitis. The most recent episode was last summer and she had some intermittent dizziness that she related to the antibiotic, which was then stopped by her PCP. She denies any other reaction. To note, she has multiple allergies to medications and reports her allergy of a rash from penicillins is from childhood. Her only previous abdominal surgery was a laparoscopic cholecystectomy in 2018. She has had an EGD and colonoscopy in 2020. Colonoscopy showed diverticulosis of the descending and sigmoid colon. She reports her bowels have been moving normally over the past few days with her last BM yesterday. She is still having a fair amount of abdominal pain this morning and felt no relief with the [place] which was given about an hour prior to my evaluation. Review of Systems Review of Systems: All systems reviewed & are unremarkable except as noted in HPI and below [facility] Past Medical History Medical History Prediabetes Heartburn Anxiety B12 deficiency Acute bronchitis Candidiasis of breast Urinary frequency Dysuria Gastritis (~09/08/20) moderate gastritis on EGD 09/08/2020. Diverticulosis multiple diverticula on colonoscopy 06/25/2020. Back pain with radiculopathy Back Pain Screening for tuberculosis Swelling, mass, or lump in chest Hospital discharge follow-up Screening mammogram for breast cancer Mammogram normal 06/28/2022. Encounter for gynecological examination (general) (routine) without abnormal findings Diverticulitis large intestine w/o perforation or abscess w/o bleeding (~11/2016) history of recurrent sigmoid diverticulitis with 5 or 6 episodes since November,. Colonoscopy 06/25/2020 with diverticulosis but otherwise normal with recheck in 10 years. Abdominal pain Epigastric pain Obesity, morbid, BMI 40.0-49.9 Diarrhea Adverse reaction to antibiotic Nausea HTN (hypertension) Depression Blood in stool Loose stools History of diverticulitis Post depression Solitary pulmonary nodule PVC (premature ventricular contraction) Frequent PVCs on Holter monitor on 09/11/2018. Bronchitis Falls Fainting Chicken pox Migraine headache Hemorrhoids Pneumonia Elevated BP without diagnosis of hypertension Surgical History Surgical History History of cholecystectomy Cholecystectomy planned 2017 H/O removal of cyst right arm,1989 Family History Family History Mother Diabetes mellitus Hypertension Depression Father Patient's father is in good health Alcoholism Other Diabetes mellitus Cerebrovascular accident Hypertension Other Family history of colonic diverticulitis Social History Social History Smoking packs per day: 1 Smoking cigarettes per day: 20.0 Years smoked: 10 Smoking pack-years: 10.00 Smoking status: Former smoker Alcohol intake: current Drinks per week: 4 Alcohol use details: SOCIAL Substance use: never Substance use type: does not use Do You Feel Safe in your Home?: Yes Lack of Transportation: No Lack of Food: Never True Current Housing: I Have Housing Concerned About Future Housing: No Difficulty Paying Gas/Electric Bills: No Difficulty Paying for Meds: No Currently Unemployed: No Education: Bachelor's Degree Difficulty w/ Childcare or Family Care: No Living arrangements: with family 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 Gender identity (if verbalized by the patient): Female Sexual Orientation (if Verbalized by the Patient): Straight or Heterosexual Spiritual care concerns: No Meds Home Medications and Allergies Home Medications ?Medication ?Instructions ?Recorded ?Confirmed ?Type metoprolol tartrate 25 mg tablet 25 mg PO BID #180 tabs 04/11/24 06/19/24 Rx Allergies Allergy/AdvReac Type Severity Reaction Status Date / Time Penicillins Allergy Mild Rash Verified 06/19/24 07:10 amoxicillin Allergy Unknown Rash Verified 06/19/24 07:10 Cephalosporins Allergy Unknown Rash Verified 06/19/24 07:10 Sulfa (Sulfonamide Allergy Unknown Rash Verified 06/19/24 07:10 Antibiotics) sulfamethizole Allergy Unknown Rash Verified 06/19/24 07:10 trimethoprim Allergy Unknown Rash Verified 06/19/24 07:10 metronidazole (From Flagyl) AdvReac Intermediate Dizziness Verified 06/19/24 07:10 Vital Signs Vital Signs - 24 hr 06/19/24 01:48 06/19/24 03:13 06/19/24 05:19 Temperature 98.1 F Pulse Rate 116 H 78 72 Respiratory Rate 20 19 19 Blood Pressure 163/102 H 175/67 H Pulse Oximetry 94 95 94 Oxygen Delivery Room Air Oxygen Flow Rate 06/19/24 06:31 06/19/24 06:37 06/19/24 09:18 Temperature Pulse Rate 81 72 Respiratory Rate 17 Blood Pressure 134/96 H Pulse Oximetry 86 L 97 Oxygen Delivery High Flow Nasal Cannula Oxygen Flow Rate 2 Exam Const: General: comfortable and no acute distress Nutritional Appearance: obese Orientation/consciousness: patient oriented x3 HENMT: Head: normocephalic and atraumatic Ears: hearing grossly normal bilaterally Mouth: Yes moist mucous membranes Eyes: General: appearance normal, both eyes and all related structures Pupils: Equal, round and reactive pupils present Neck: Neck: normal visual inspection and full ROM Resp: Effort & Inspection: no respiratory distress Auscultation: clear to auscultation bilaterally Cardio: Rate: regular rate Rhythm: regular rhythm Peripheral pulses: Peripheral pulses 2+ throughout GI: Inspection: Pannus present, obesity and no visible herniation GI Palp: Yes Soft to palpation, Yes Tenderness to palpation present (GI) (focal tenderness in the mid lower abdomen), Yes Guarding due to palpation present (GI) (suprapubic area) and No Rebound tenderness present Percussion: Yes normal to percussion Auscultation: normal bowel sounds Skin: General skin exam: normal color Neuro: General: moves all extremities and no focal motor deficits Speech: normal speech Motor exam (neuro): 5/5 motor strength present throughout Extrem: General: normal to inspection and no edema Psych: Mental Status: mental status grossly normal Attitude: cooperative Insight: Good insight present (Psych) Judgement: Good judgement present (Psych) Results Labs 06/19/24 03:50 06/19/24 03:50 Labs: Abnormal lab results 06/19/24 Range/Units 03:50 WBC 11.4 H (4.5-10.0) K/mm3 RBC 4.14 L (4.2-5.4) M/mm3 Neut % (Auto) 73.9 H (45.5-73.1) % Lymph % (Auto) 15.7 L (18.3-44.2) % [place] # (Auto) 0.9 H (0.1-0.6) K/mm3 Abs Immat Gran (auto) 0.04 H (0.00-0.031) K/mm3 Absolute Neuts (auto) 8.4 H (1.3-6.7) K/mm3 Sodium 136 L (137-145) mmol/L Creatinine 0.57 L (0.7-1.0) mg/dL Glucose 124 H (65-110) mg/dL Urine Appearance Cloudy H (Clear) Ur Blood (Man) 2+ H (Negative) Leukocyte Esterase Rfl 1+ H (Negative) DARRELL/UL Urine RBC 3-5 H (0-2) /hpf Urine WBC 11-20 H (0-3) /hpf Urine Bacteria 1+ H /hpf Diabetes panel 06/19/24 Range/Units 03:50 Sodium 136 L (137-145) mmol/L Potassium 3.9 (3.4-5.0) mmol/L Chloride 100 (98-107) mmol/L Carbon Dioxide 27 (22-30) mmol/L BUN 9 (7-17) mg/dL Creatinine 0.57 L (0.7-1.0) mg/dL Glucose 124 H (65-110) mg/dL Calcium 8.8 (8.4-10.2) mg/dL AST 19 (14-36) U/L ALT 20 (6-35) U/L Alkaline Phosphatase 79 (38-126) U/L Total Protein 7.0 (6.3-8.2) g/dL Albumin 3.9 (3.5-5.1) g/dL Calcium panel 06/19/24 Range/Units 03:50 Calcium 8.8 (8.4-10.2) mg/dL Albumin 3.9 (3.5-5.1) g/dL Pituitary panel 06/19/24 Range/Units 03:50 Sodium 136 L (137-145) mmol/L Potassium 3.9 (3.4-5.0) mmol/L Chloride 100 (98-107) mmol/L Carbon Dioxide 27 (22-30) mmol/L BUN 9 (7-17) mg/dL Creatinine 0.57 L (0.7-1.0) mg/dL Glucose 124 H (65-110) mg/dL Calcium 8.8 (8.4-10.2) mg/dL Adrenal panel 06/19/24 Range/Units 03:50 Sodium 136 L (137-145) mmol/L Potassium 3.9 (3.4-5.0) mmol/L Chloride 100 (98-107) mmol/L Carbon Dioxide 27 (22-30) mmol/L BUN 9 (7-17) mg/dL Creatinine 0.57 L (0.7-1.0) mg/dL Glucose 124 H (65-110) mg/dL Calcium 8.8 (8.4-10.2) mg/dL Total Bilirubin 0.6 (0.2-1.3) mg/dL AST 19 (14-36) U/L ALT 20 (6-35) U/L Alkaline Phosphatase 79 (38-126) U/L Total Protein 7.0 (6.3-8.2) g/dL Albumin 3.9 (3.5-5.1) g/dL All other labs normal. Imaging Additional studies: ITS Impressions Abdomen/Pelvis CT 06/19/24 05:48 IMPRESSION: 1. Mesenteric inflammatory stranding with small associated abscess along the superior margin of the uterus, likely secondary to colonic diverticulitis. Abscess related to adjacent small bowel is less favored, although not excluded.
[2024-06-19] MEDS: IBUPROFEN IV 800 MG/200 ML 800 MG/200 ML BAG 400 MG IVPB (11:37)
[2024-06-19] MEDS: levoFLOXacin 750 MG/D5W 150 ML 750 MG/150 ML BAG 100 MG IVPB (13:29)
[2024-06-19] MEDS: ACETAMINOPHEN 325 MG TABLET 650 MG PO (15:51)
--- NOTE | 2024-06-19 18:38 | PC.NURSE ---
pt stated earlier in the day that she was allergic to flagyl. pt states it gives her a feeling of lightheadedness or passing out. this rn reached out to md and okeyed to give flagyl. flagyl given at 1045. pt stated approx 1700 that she felt like she was going to pass out . vitals were taken and everything WNL. MD was called and he stated to hold the 1800 flagyl tonight.
[2024-06-19] MEDS: HEPARIN SODIUM 5,000 UNITS/ML VIAL 5000 UNITS SUB-Q (21:15)
[2024-06-20] MEDS: HYDROmorphone HCL INJ (*CRX) 1 MG/ML SYR 0.5 MG IV PUSH ×4 (00:03→17:39)
[2024-06-20 04:35] VITALS: BP 162/88; PULSE 67; RESP 18; TEMP 37.2; O2SAT 96
[2024-06-20] MEDS: LACTATED RINGERS 1,000 ML 125 ML IV CONT ×2 (06:39→18:50)
[2024-06-20] MEDS: HEPARIN SODIUM 5,000 UNITS/ML VIAL 5000 UNITS SUB-Q ×3 (06:40→21:19)
[2024-06-20 07:26] LABS: Hematocrit 38.1 % (37.0-47.0); Hemoglobin 12.4 g/dL (12.0-15.0); Mean Corpuscular HGB Conc 32.5 g/dl (32-36); Mean Platelet Volume 9.9 fl (7.4-10.4); Platelet Count Result 326 k/mm3 (150-375); Red Blood Count 4.14 M/mm3 (4.2-5.4); Red Cell Distribution Width 13.5 % (11.5-14.5); White Blood Count 11.8 K/mm3 (4.5-10.0)
[2024-06-20 07:47] LABS: Alanine Aminotransferase 20 U/L (6-35); Albumin Level 3.5 g/dL (3.5-5.1); Alkaline Phosphatase 83 U/L (38-126); Anion Gap 7 mmol/L (4-12); Aspartate Amino Transferase 21 U/L (14-36); Bilirubin,Total 0.5 mg/dL (0.2-1.3); Blood Urea Nitrogen 6 mg/dL (7-17); Calcium 8.6 mg/dL (8.4-10.2); Carbon Dioxide 29 mmol/L (22-30); Chloride 101 mmol/L (98-107); Cholesterol 142 mg/dL (0-200); Estimated CRCL calculation 159 ml/min; Estimated Glomerular Filt Rate > 60; Glucose 96 mg/dL (65-110); HDL Direct 48 mg/dL; Sodium 137 mmol/L (137-145); Triglycerides 99 mg/dL (<150)
[2024-06-20 07:48] LABS: Hemoglobin A1C 5.7 % (<5.7)
[2024-06-20 07:53] LABS: LDL Cholesterol Direct 67 mg/dL
[2024-06-20 08:05] LABS: CRP 14.3 mg/dL (<1.0)
[2024-06-20 09:28] VITALS: PULSE 67
[2024-06-20] MEDS: METOPROLOL TARTRATE 25 MG TABLET PO ×2 (09:28→21:18)
[2024-06-20] MEDS: PANTOPRAZOLE SODIUM IV 40 MG VIAL IV PUSH ×2 (09:28→21:19)
[2024-06-20] MEDS: MEROPENEM 1 GM/NS 100 ML 1 GM/100 ML BAG IVPB ×3 (09:59→21:38)
[2024-06-20 12:38] VITALS: O2SAT 94
--- NOTE | 2024-06-20 13:01 | PM.PNGS ---
Progress Note: A&P Assessment and Plan (1) Intra-abdominal abscess: Code(s): K65.1 - Peritoneal abscess Status: Acute Assessment and Plan: Likely secondary to diverticulitis. Patient clinically improving with antibiotics. She was switched to IV Meropenem due to a reaction to the IV metronidazole. WBC count still at 11,000 today. She is afebrile. Abdominal pain and tenderness has improved. Will start her on a clear liquid diet. Repeat labs and exam tomorrow. (2) History of colonic diverticulitis: Code(s): Z87.19 - Personal history of other diseases of the digestive system Status: Acute Assessment and Plan: She is limited on antibiotic options for oral agents for discharge due to her multiple drug allergies. Could consider Levofloxacin as a single agent on discharge or could try Augmentin since her allergy is a rash as a child, which would provide better anaerobic coverage over single agent levofloxacin. (3) BMI 45.0-49.9, adult: Code(s): Z68.42 - Body mass index [BMI] 45.0-49.9, adult Status: Acute (4) HTN (hypertension): Code(s): I10 - Essential (primary) hypertension Status: Acute Plan I have discussed the patient's case and plan of care with Dr. Golden. Subjective Subjective Date/Time Seen: 06/20/24 13:01 Patient reports: no new complaints, feels better, pain is less, flatus and afebrile Interval history: Patient feeling better today. Still having suprapubic abdominal pain, but feels it has improved. Her antibiotics were switched to meropenem due to her reporting an intolerance to the IV metronidazole. She reports having nausea and dizziness after having the IV metronidazole yesterday. No issues with this today after it was stopped. No other complaints. Review of Systems Review of Systems: All systems reviewed & are unremarkable except as noted in HPI and below Exam Const: General: comfortable and no acute distress Orientation/consciousness: patient oriented x3 GI: Inspection: non-distended, Pannus present and obesity GI Palp: Yes Soft to palpation, Yes Tenderness to palpation present (GI) (tenderness across the lower abdomen), No Guarding due to palpation present (GI) and Yes Rebound tenderness present Auscultation: normal bowel sounds Objective Data Vital Signs Vital Signs: Vital Signs - 24 hr 06/19/24 14:00 06/19/24 20:20 06/20/24 04:35 Temperature 98.1 F 97.5 F L 99 F Pulse Rate 68 61 67 Respiratory Rate 20 20 18 Blood Pressure 92/70 L 127/70 162/88 H Pulse Oximetry 96 94 96 Oxygen Delivery 06/20/24 08:00 06/20/24 09:28 06/20/24 12:38 Temperature Pulse Rate 67 Respiratory Rate Blood Pressure Pulse Oximetry 94 Oxygen Delivery Room Air Room Air Intake/Output Intake/Output: Intake & Output 06/17/24 06/18/24 06/19/24 06/20/24 23:59 23:59 23:59 23:59 Intake Total 1450 1080 Balance 1450 1080 Meds/Results Medications: Active Medications Generic Name Dose Route Start Last Admin Trade Name Freq PRN Reason Stop Dose Admin Acetaminophen 650 mg 06/19/24 06:01 06/19/24 15:51 Acetaminophen 325 Mg Tablet PO 650 mg Q4H PRN Administration Mild Pain (1-3) or Fever Heparin Sodium (Porcine) 5,000 units 06/19/24 22:00 06/20/24 06:40 Heparin Sodium 5,000 Units/Ml Vial SUB-Q 5,000 units Q8HR COSME Administration Hydromorphone HCl 0.5 mg 06/19/24 10:31 06/20/24 09:27 Hydromorphone Hcl Inj (*Crx) 1 Mg/Ml Syr IV PUSH 0.5 mg Q3H PRN Administration Pain Rated 7-10 Lactated Ringer's 1,000 mls @ 60 mls/hr 06/19/24 06:05 06/20/24 06:39 Lr - Lactated Ringers Iv IV CONT 125 mls/hr .[id number] COSME Administration Ibuprofen 800 mg in 200 mls @ 400 mls/hr 06/19/24 10:31 06/19/24 12:22 Caldolor 800 Mg/200 Ml IVPB Infused Q6H PRN Infusion Pain Rated 4-6 Meropenem 1 gm in 100 mls @ 200 mls/hr 06/20/24 08:00 06/20/24 09:59 IVPB 200 mls/hr Q8HR COSME Administration Metoprolol Tartrate 25 mg 06/19/24 09:00 02/28/25 09:28 Metoprolol Tartrate 25 Mg Tablet PO 25 mg Q12HR COSME Administration Ondansetron HCl 4 mg 06/19/24 06:01 06/19/24 16:45 Ondansetron Inj 4 Mg/2 Ml Vial IV PUSH 4 mg Q4H PRN Administration Nausea Pantoprazole Sodium 40 mg 06/19/24 09:00 06/20/24 09:28 Pantoprazole Sodium Iv 40 Mg Vial IV PUSH 40 mg Q12HR COSME Administration Radiology Results: ITS Impressions Abdomen/Pelvis CT 06/19/24 05:48 IMPRESSION: 1. Mesenteric inflammatory stranding with small associated abscess along the superior margin of the uterus, likely secondary to colonic diverticulitis. Abscess related to adjacent small bowel is less favored, although not excluded. Labs Labs: Laboratory Results - last 24 hr 06/20/24 06:42 WBC 11.8 H RBC 4.14 L Hgb 12.4 Hct 38.1 MCV 92.0 MCH 30.0 MCHC 32.5 RDW 13.5 Plt Count 326 MPV 9.9 Sodium 137 Potassium 4.0 Chloride 101 Carbon Dioxide 29 Anion Gap 7 BUN 6 L Creatinine 0.59 L Estim Creat Clear Calc 159 Estimated GFR > 60 Glucose 96 Hemoglobin A1c 5.7 Calcium 8.6 Total Bilirubin 0.5 AST 21 ALT 20 Alkaline Phosphatase 83 C-Reactive Protein 14.3 H Total Protein 6.0 L Albumin 3.5 Triglycerides 99 Cholesterol 142 LDL Cholesterol Direct 67 HDL Direct 48
[2024-06-20 14:00] VITALS: BP 134/76; PULSE 66; RESP 20; TEMP 36.1; O2SAT 98
--- NOTE | 2024-06-20 14:31 | PM.IMPN ---
Progress Note: A&P Assessment and Plan (1) PVC (premature ventricular contraction): Code(s): I49.3 - Ventricular premature depolarization Status: Acute (2) Hyperlipidemia: Onset Date: 02/28/22 Code(s): E78.5 - Hyperlipidemia, unspecified Status: Acute (3) Anxiety: Code(s): F41.9 - Anxiety disorder, unspecified Status: Acute (4) History of colonic diverticulitis: Code(s): Z87.19 - Personal history of other diseases of the digestive system Status: Acute Plan Recurrent diverticulitis Episodes of diverticulitis a from 2016 Bowel rest, IV fluids Reviewed the CT scan Surgery following recommend medical management Serial abdominal exams and lab Protonix 40 b.i.d. Zofran for nausea Monitor electrolytes Pain control ordered Will consider NG and TPN if necessary DC metronidazole due to dizziness DC ciprofloxacin Will start Meropenam Underwent EGD and colonoscopy 2020 History of PVCs Continue metoprolol 25 mg p.o. b.i.d. Metabolic syndrome Order lipid panel Ordered HbA1c Subjective Date/time seen: 06/20/24 14:31 Interval history: Started on meropenem due to possible allergy from metronidazole. Patient started on clear liquid diet. When anticipating discharge will give 1 or 2 doses of Augmentin in the hospital (a day before getting discharge). Review of Systems Review of Systems: As reviewed above in HPI Exam Narrative: GENERAL: [Well-appearing, well-nourished, and in no acute distress.] HEAD: [Normocephalic, atraumatic.] EYES: [PERRLA and EOMI.] ENT: Nares clear, no rhinorrhea or epistaxis. Mucous membranes moist. NECK: Supple. CHEST: [Clear to auscultation. No respiratory distress.] HEART: [Regular rate and rhythm]. No murmur heard. [Normal peripheral pulses.] ABDOMEN: Protuberant abdomen but soft, tender to palpation left lower quadrant without peritonitis, [No rigidity or guarding] EXTREMITIES: Normal range of motion. [No edema.] SKIN: Warm, dry, no rash. NEURO: [No focal deficits]. Alert and oriented [x3.] PSYCH: [Normal mood and affect.] Objective Data Vital Signs Vital Signs: Vital Signs - 24 hr 06/19/24 20:20 06/20/24 04:35 06/20/24 08:00 Temperature 97.5 F L 99 F Pulse Rate 61 67 Respiratory Rate 20 18 Blood Pressure 127/70 162/88 H Pulse Oximetry 94 96 Oxygen Delivery Room Air 06/20/24 09:28 06/20/24 12:38 06/20/24 14:00 Temperature 96.9 F L Pulse Rate 67 66 Respiratory Rate 20 Blood Pressure 134/76 Pulse Oximetry 94 98 Oxygen Delivery Room Air Intake/Output Intake/Output: Intake & Output 06/17/24 06/18/24 06/19/24 06/20/24 23:59 23:59 23:59 23:59 Intake Total 1450 1560 Balance 1450 1560 Meds/Results Medications: Active Medications Generic Name Dose Route Start Last Admin Trade Name Freq PRN Reason Stop Dose Admin Acetaminophen 650 mg 06/19/24 06:01 06/19/24 15:51 Acetaminophen 325 Mg Tablet PO 650 mg Q4H PRN Administration Mild Pain (1-3) or Fever Heparin Sodium (Porcine) 5,000 units 06/19/24 22:00 06/20/24 14:07 Heparin Sodium 5,000 Units/Ml Vial SUB-Q 5,000 units Q8HR COSME Administration Hydromorphone HCl 0.5 mg 06/19/24 10:31 06/20/24 09:27 Hydromorphone Hcl Inj (*Crx) 1 Mg/Ml Syr IV PUSH 0.5 mg Q3H PRN Administration Pain Rated 7-10 Lactated Ringer's 1,000 mls @ 60 mls/hr 06/19/24 06:05 06/20/24 06:39 Lr - Lactated Ringers Iv IV CONT 125 mls/hr .[id number] COSME Administration Ibuprofen 800 mg in 200 mls @ 400 mls/hr 06/19/24 10:31 06/19/24 12:22 Caldolor 800 Mg/200 Ml IVPB Infused Q6H PRN Infusion Pain Rated 4-6 Meropenem 1 gm in 100 mls @ 200 mls/hr 06/20/24 08:00 06/20/24 14:07 IVPB 200 mls/hr Q8HR COSME Administration Metoprolol Tartrate 25 mg 06/19/24 09:00 06/20/24 09:28 Metoprolol Tartrate 25 Mg Tablet PO 25 mg Q12HR COSME Administration Ondansetron HCl 4 mg 06/19/24 06:01 06/19/24 16:45 Ondansetron Inj 4 Mg/2 Ml Vial IV PUSH 4 mg Q4H PRN Administration Nausea Pantoprazole Sodium 40 mg 06/19/24 09:00 06/20/24 09:28 Pantoprazole Sodium Iv 40 Mg Vial IV PUSH 40 mg Q12HR COSME Administration Radiology Results: ITS Impressions Abdomen/Pelvis CT 06/19/24 05:48 IMPRESSION: 1. Mesenteric inflammatory stranding with small associated abscess along the superior margin of the uterus, likely secondary to colonic diverticulitis. Abscess related to adjacent small bowel is less favored, although not excluded. Labs Labs: Laboratory Results - last 24 hr 06/20/24 06:42 WBC 11.8 H RBC 4.14 L Hgb 12.4 Hct 38.1 MCV 92.0 MCH 30.0 MCHC 32.5 RDW 13.5 Plt Count 326 MPV 9.9 Sodium 137 Potassium 4.0 Chloride 101 Carbon Dioxide 29 Anion Gap 7 BUN 6 L Creatinine 0.59 L Estim Creat Clear Calc 159 Estimated GFR > 60 Glucose 96 Hemoglobin A1c 5.7 Calcium 8.6 Total Bilirubin 0.5 AST 21 ALT 20 Alkaline Phosphatase 83 C-Reactive Protein 14.3 H Total Protein 6.0 L Albumin 3.5 Triglycerides 99 Cholesterol 142 LDL Cholesterol Direct 67 HDL Direct 48 Quality VTE Prophylaxis VTE prophylaxis: pharmacologic ordered Hospitalist [facility] Advance Care Plan I have confirmed that the patient's Advanced Care Plan is present, code status is documented, or surrogate decision maker is listed in patient medical record.: Yes Medication Reconciliation I have utilized all available resources to obtain, update and review the patients current medications (includes all prescriptions, OTC, herbals, cannabis, and nutritional supplements).: Yes
[2024-06-20 20:20] VITALS: BP 157/74; PULSE 65; RESP 16; TEMP 36.4; O2SAT 94
[2024-06-20 21:18] VITALS: PULSE 65
[2024-06-21 04:40] VITALS: BP 118/82; PULSE 64; RESP 18; TEMP 36.7; O2SAT 96
[2024-06-21] MEDS: HYDROmorphone HCL INJ (*CRX) 1 MG/ML SYR 0.5 MG IV PUSH (05:25)
[2024-06-21] MEDS: ONDANSETRON INJ 4 MG/2 ML VIAL IV PUSH (05:25)
[2024-06-21] MEDS: MEROPENEM 1 GM/NS 100 ML 1 GM/100 ML BAG IVPB ×3 (05:26→20:44)
[2024-06-21] MEDS: HEPARIN SODIUM 5,000 UNITS/ML VIAL 5000 UNITS SUB-Q ×2 (05:32→14:35)
[2024-06-21] MEDS: PANTOPRAZOLE SODIUM IV 40 MG VIAL IV PUSH (09:05)
[2024-06-21] MEDS: METOPROLOL TARTRATE 25 MG TABLET PO ×2 (09:05→20:43)
[2024-06-21 09:23] LABS: Hematocrit 39.1 % (37.0-47.0); Hemoglobin 12.7 g/dL (12.0-15.0); Mean Corpuscular HGB Conc 32.5 g/dl (32-36); Mean Corpuscular Hemoglobin 30.1 pg (26-34); Mean Corpuscular Volume 92.7 fl (80-100); Mean Platelet Volume 10.1 fl (7.4-10.4); Platelet Count Result 386 k/mm3 (150-375); Red Blood Count 4.22 M/mm3 (4.2-5.4); Red Cell Distribution Width 13.5 % (11.5-14.5); White Blood Count 8.9 K/mm3 (4.5-10.0)
[2024-06-21 09:24] LABS: Alanine Aminotransferase 19 U/L (6-35); Albumin Level 3.5 g/dL (3.5-5.1); Alkaline Phosphatase 81 U/L (38-126); Anion Gap 7 mmol/L (4-12); Aspartate Amino Transferase 16 U/L (14-36); Bilirubin,Total 0.4 mg/dL (0.2-1.3); Blood Urea Nitrogen 4 mg/dL (7-17); Calcium 8.7 mg/dL (8.4-10.2); Carbon Dioxide 28 mmol/L (22-30); Chloride 101 mmol/L (98-107); Estimated CRCL calculation 170 ml/min; Estimated Glomerular Filt Rate > 60; Glucose 140 mg/dL (65-110); Potassium 4.3 mmol/L (3.4-5.0); Sodium 136 mmol/L (137-145)
[2024-06-21 13:56] VITALS: BP 130/67; PULSE 67; RESP 18; TEMP 36.5; O2SAT 95
--- NOTE | 2024-06-21 14:12 | PM.IMPN ---
Progress Note: A&P Assessment and Plan (1) PVC (premature ventricular contraction): Code(s): I49.3 - Ventricular premature depolarization Status: Acute (2) Hyperlipidemia: Onset Date: 02/28/22 Code(s): E78.5 - Hyperlipidemia, unspecified Status: Acute (3) Anxiety: Code(s): F41.9 - Anxiety disorder, unspecified Status: Acute (4) History of colonic diverticulitis: Code(s): Z87.19 - Personal history of other diseases of the digestive system Status: Acute Plan Recurrent diverticulitis Episodes of diverticulitis a from 2017 Bowel rest, IV fluids Reviewed the CT scan Surgery following recommend medical management Serial abdominal exams and lab Protonix 40 b.i.d. Zofran for nausea Monitor electrolytes Pain control ordered Will consider NG and TPN if necessary DC metronidazole due to dizziness DC ciprofloxacin Will start Meropenam Underwent EGD and colonoscopy 2020 History of PVCs Continue metoprolol 25 mg p.o. b.i.d. Metabolic syndrome Order lipid panel Ordered HbA1c Subjective Date/time seen: 06/21/24 14:12 Interval history: Tolerating well Low-fiber diet. Possibly will change to oral antibiotics tomorrow. Patient agrees to take oral antibiotic. Explained risks versus benefits of taking Augmentin Review of Systems Review of Systems: As reviewed above in HPI Exam Narrative: GENERAL: [Well-appearing, well-nourished, and in no acute distress.] HEAD: [Normocephalic, atraumatic.] EYES: [PERRLA and EOMI.] ENT: Nares clear, no rhinorrhea or epistaxis. Mucous membranes moist. NECK: Supple. CHEST: [Clear to auscultation. No respiratory distress.] HEART: [Regular rate and rhythm]. No murmur heard. [Normal peripheral pulses.] ABDOMEN: Protuberant abdomen but soft, tender to palpation left lower quadrant without peritonitis, [No rigidity or guarding] EXTREMITIES: Normal range of motion. [No edema.] SKIN: Warm, dry, no rash. NEURO: [No focal deficits]. Alert and oriented [x3.] PSYCH: [Normal mood and affect.] Objective Data Vital Signs Vital Signs: Vital Signs - 24 hr 06/20/24 20:20 06/20/24 21:18 06/20/24 21:19 Temperature 97.6 F Pulse Rate 65 65 Respiratory Rate 16 Blood Pressure 157/74 H Pulse Oximetry 94 Oxygen Delivery Room Air 06/21/24 04:40 06/21/24 13:56 Temperature 98.1 F 97.7 F Pulse Rate 64 67 Respiratory Rate 18 18 Blood Pressure 118/82 130/67 Pulse Oximetry 96 95 Oxygen Delivery Intake/Output Intake/Output: Intake & Output 06/18/24 06/19/24 06/20/24 06/21/24 23:59 23:59 23:59 23:59 Intake Total 1450 3240 1407 Balance 1450 3240 1407 Meds/Results Medications: Active Medications Generic Name Dose Route Start Last Admin Trade Name Freq PRN Reason Stop Dose Admin Acetaminophen 650 mg 06/19/24 06:01 06/19/24 15:51 Acetaminophen 325 Mg Tablet PO 650 mg Q4H PRN Administration Mild Pain (1-3) or Fever Heparin Sodium (Porcine) 5,000 units 06/19/24 22:00 06/21/24 05:32 Heparin Sodium 5,000 Units/Ml Vial SUB-Q 5,000 units Q8HR COSME Administration Hydromorphone HCl 0.5 mg 06/19/24 10:31 06/21/24 05:25 Hydromorphone Hcl Inj (*Crx) 1 Mg/Ml Syr IV PUSH 0.5 mg Q3H PRN Administration Pain Rated 7-10 Ibuprofen 800 mg in 200 mls @ 400 mls/hr 06/19/24 10:31 06/19/24 12:22 Caldolor 800 Mg/200 Ml IVPB Infused Q6H PRN Infusion Pain Rated 4-6 Meropenem 1 gm in 100 mls @ 200 mls/hr 06/20/24 08:00 06/21/24 05:56 IVPB Infused Q8HR COSME Infusion Metoprolol Tartrate 25 mg 06/19/24 09:00 06/21/24 09:05 Metoprolol Tartrate 25 Mg Tablet PO 25 mg Q12HR COSME Administration Ondansetron HCl 4 mg 06/19/24 06:01 06/21/24 05:25 Ondansetron Inj 4 Mg/2 Ml Vial IV PUSH 4 mg Q4H PRN Administration Nausea Oxycodone/Acetaminophen 1 tablet 06/21/24 11:34 Oxycodone/Acetaminophen (*Crx) 5-325 Mg Tablet PO Q6H PRN Pain Rated 4-6 Oxycodone/Acetaminophen 1 tab 06/21/24 11:34 Oxycodone/Acetaminophen (*Crx) 10-325 Mg Tablet PO Q6H PRN Pain Rated 7-10 Pantoprazole Sodium 40 mg 06/19/24 09:00 06/21/24 09:05 Pantoprazole Sodium Iv 40 Mg Vial IV PUSH 40 mg Q12HR COSME Administration Radiology Results: ITS Impressions Abdomen/Pelvis CT 06/19/24 05:48 IMPRESSION: 1. Mesenteric inflammatory stranding with small associated abscess along the superior margin of the uterus, likely secondary to colonic diverticulitis. Abscess related to adjacent small bowel is less favored, although not excluded. Labs Labs: Laboratory Results - last 24 hr 06/21/24 08:56 WBC 8.9 RBC 4.22 Hgb 12.7 Hct 39.1 MCV 92.7 MCH 30.1 MCHC 32.5 RDW 13.5 Plt Count 386 H MPV 10.1 Sodium 136 L Potassium 4.3 Chloride 101 Carbon Dioxide 28 Anion Gap 7 BUN 4 L Creatinine 0.55 L Estim Creat Clear Calc 170 Estimated GFR > 60 Glucose 140 H Calcium 8.7 Total Bilirubin 0.4 AST 16 ALT 19 Alkaline Phosphatase 81 Total Protein 6.0 L Albumin 3.5 Quality VTE Prophylaxis VTE prophylaxis: pharmacologic ordered Hospitalist [facility] Advance Care Plan I have confirmed that the patient's Advanced Care Plan is present, code status is documented, or surrogate decision maker is listed in patient medical record.: Yes Medication Reconciliation I have utilized all available resources to obtain, update and review the patients current medications (includes all prescriptions, OTC, herbals, cannabis, and nutritional supplements).: Yes
--- NOTE | 2024-06-21 15:28 | PM.PNGS ---
Progress Note: A&P Assessment and Plan (1) Diverticulitis of large intestine with abscess without bleeding: Code(s): K57.20 - Diverticulitis of large intestine with perforation and abscess without bleeding Status: Acute Assessment and Plan: Definitely improving. Still took some IV narcotic pain medicine early this morning. Will have oral pain meds more available today. Advanced to low-fiber diet. If tolerates and ambulating independently, can be discharged tomorrow on oral antibiotics. Subjective Subjective Date/Time Seen: 06/21/24 15:28 Patient reports: feels better, pain is less, tolerating liquids well and afebrile Interval history: Had a dose of IV Dilaudid at 5:00 a.m. today for pain. Has tolerated full liquids well. Review of Systems Review of Systems: All systems reviewed & are unremarkable except as noted in HPI and below (HPI) Exam Const: General: cooperative, comfortable, no acute distress, alert, awake and overweight Orientation/consciousness: patient oriented x3 GI: GI Palp: Yes Soft to palpation, Yes Tenderness to palpation present (GI) (Left lower quadrant, mild, no guarding), No Guarding due to palpation present (GI) and No Rebound tenderness present Auscultation: normal bowel sounds Neuro: General: patient oriented x3 and no focal motor deficits Extrem: General: no calf tenderness and no edema Psych: Affect: normal affect Insight: Good insight present (Psych) Judgement: Good judgement present (Psych) Objective Data Vital Signs Vital Signs: Vital Signs - 24 hr 06/20/24 20:20 06/20/24 21:18 06/20/24 21:19 Temperature 36.4 C Pulse Rate 65 65 Respiratory Rate 16 Blood Pressure 157/74 H Pulse Oximetry 94 Oxygen Delivery Room Air 06/21/24 04:40 06/21/24 13:56 Temperature 36.7 C 36.5 C Pulse Rate 64 67 Respiratory Rate 18 18 Blood Pressure 118/82 130/67 Pulse Oximetry 96 95 Oxygen Delivery Intake/Output Intake/Output: Intake & Output 06/18/24 06/19/24 06/20/24 06/21/24 23:59 23:59 23:59 23:59 Intake Total 1450 3240 1407 Balance 1450 3240 1407 Meds/Results Medications: Active Medications Generic Name Dose Route Start Last Admin Trade Name Freq PRN Reason Stop Dose Admin Acetaminophen 650 mg 06/19/24 06:01 06/19/24 15:51 Acetaminophen 325 Mg Tablet PO 650 mg Q4H PRN Administration Mild Pain (1-3) or Fever Famotidine 20 mg 06/21/24 21:00 Famotidine 20 Mg Tablet PO Q12HR [facility] Heparin Sodium (Porcine) 5,000 units 06/19/24 22:00 06/21/24 05:32 Heparin Sodium 5,000 Units/Ml Vial SUB-Q 5,000 units Q8HR COSME Administration Hydromorphone HCl 0.5 mg 06/19/24 10:31 06/21/24 05:25 Hydromorphone Hcl Inj (*Crx) 1 Mg/Ml Syr IV PUSH 0.5 mg Q3H PRN Administration Pain Rated 7-10 Ibuprofen 800 mg in 200 mls @ 400 mls/hr 06/19/24 10:31 06/19/24 12:22 Caldolor 800 Mg/200 Ml IVPB Infused Q6H PRN Infusion Pain Rated 4-6 Meropenem 1 gm in 100 mls @ 200 mls/hr 06/20/24 08:00 06/21/24 05:56 IVPB Infused Q8HR COSME Infusion Metoprolol Tartrate 25 mg 06/19/24 09:00 06/21/24 09:05 Metoprolol Tartrate 25 Mg Tablet PO 25 mg Q12HR COSME Administration Ondansetron HCl 4 mg 06/19/24 06:01 06/21/24 05:25 Ondansetron Inj 4 Mg/2 Ml Vial IV PUSH 4 mg Q4H PRN Administration Nausea Oxycodone/Acetaminophen 1 tablet 06/21/24 11:34 Oxycodone/Acetaminophen (*Crx) 5-325 Mg Tablet PO Q6H PRN Pain Rated 4-6 Oxycodone/Acetaminophen 1 tab 06/21/24 11:34 Oxycodone/Acetaminophen (*Crx) 10-325 Mg Tablet PO Q6H PRN Pain Rated 7-10 Radiology Results: ITS Impressions Abdomen/Pelvis CT 06/19/24 05:48 IMPRESSION: 1. Mesenteric inflammatory stranding with small associated abscess along the superior margin of the uterus, likely secondary to colonic diverticulitis. Abscess related to adjacent small bowel is less favored, although not excluded. Labs Labs: Laboratory Results - last 24 hr 06/21/24 08:56 WBC 8.9 RBC 4.22 Hgb 12.7 Hct 39.1 MCV 92.7 MCH 30.1 MCHC 32.5 RDW 13.5 Plt Count 386 H MPV 10.1 Sodium 136 L Potassium 4.3 Chloride 101 Carbon Dioxide 28 Anion Gap 7 BUN 4 L Creatinine 0.55 L Estim Creat Clear Calc 170 Estimated GFR > 60 Glucose 140 H Calcium 8.7 Total Bilirubin 0.4 AST 16 ALT 19 Alkaline Phosphatase 81 Total Protein 6.0 L Albumin 3.5
[2024-06-21 20:40] VITALS: BP 131/90; PULSE 68; RESP 18; TEMP 36.4; O2SAT 99
[2024-06-21] MEDS: oxyCODONE/ACETAMINOPHEN (*CRX) 5-325 MG TABLET 1 TABLET PO (20:43)
[2024-06-21] MEDS: FAMOTIDINE 20 MG TABLET PO (20:44)
[2024-06-22] VITALS (12 sets, daily range): BP systolic 119–167; BP diastolic 47–94; PULSE 56–97; RESP 18–20; TEMP 36.3–37.1; O2SAT 95–98
[2024-06-22] MEDS: MEROPENEM 1 GM/NS 100 ML 1 GM/100 ML BAG IVPB (06:10)
--- NOTE | 2024-06-22 07:28 | PM.IMPN ---
Progress Note: A&P Assessment and Plan (1) PVC (premature ventricular contraction): Code(s): I49.3 - Ventricular premature depolarization Status: Acute (2) Hyperlipidemia: Onset Date: 02/28/22 Code(s): E78.5 - Hyperlipidemia, unspecified Status: Acute (3) Anxiety: Code(s): F41.9 - Anxiety disorder, unspecified Status: Acute (4) History of colonic diverticulitis: Code(s): Z87.19 - Personal history of other diseases of the digestive system Status: Acute Plan Recurrent diverticulitis Episodes of diverticulitis a from 2016 Bowel rest, IV fluids Reviewed the CT scan Surgery following recommend medical management Serial abdominal exams and lab Protonix 40 b.i.d. Zofran for nausea Monitor electrolytes Pain control ordered Will consider NG and TPN if necessary DC metronidazole due to dizziness DC ciprofloxacin Will start Meropenam Underwent EGD and colonoscopy 2020 History of PVCs Continue metoprolol 25 mg p.o. b.i.d. Metabolic syndrome Order lipid panel Ordered HbA1c Disposition: The patient last year had appointment made with Dr. Yobani velasquez [facility] but canceled her appointment before being seen. I recommended that she make an appointment to see him as an outpatient .Staying on a low-fiber diet for a couple of weeks after discharge and then keeping popcorn, peanuts, sunflower seeds and pumpkin seeds to a minimum orally. Subjective Date/time seen: 06/22/24 07:28 Interval history: The patient reports she is allergic to multiple antibiotics including penicillin, cephalosporin, and amoxicillin but cannot conform since she was told during childhood that she formed an allergic rash. The patient will be given Augmentin this morning and monitored with continuous cardiac and pulse oximetry. I advised nursing team to monitor for wheezing, tachycardia, tongue or lip edema, dermatological signs, GI signs, and neurological symptoms. If there are any signs of allergy, the patient will be placed in a non-rebreather, given hydrocortisone 100-250 mg IV 1 time, and epinephrine. The patient understands the plan and agrees to it. Patient tolerated the dose well and receive one more dose tonight and will be discharged tomorrow with Augmentin. Review of Systems Review of Systems: As reviewed above in HPI Exam Narrative: GENERAL: [Well-appearing, well-nourished, and in no acute distress.] HEAD: [Normocephalic, atraumatic.] EYES: [PERRLA and EOMI.] ENT: Nares clear, no rhinorrhea or epistaxis. Mucous membranes moist. NECK: Supple. CHEST: [Clear to auscultation. No respiratory distress.] HEART: [Regular rate and rhythm]. No murmur heard. [Normal peripheral pulses.] ABDOMEN: Protuberant abdomen but soft, tender to palpation left lower quadrant without peritonitis, [No rigidity or guarding] EXTREMITIES: Normal range of motion. [No edema.] SKIN: Warm, dry, no rash. NEURO: [No focal deficits]. Alert and oriented [x3.] PSYCH: [Normal mood and affect.] Objective Data Vital Signs Vital Signs: Vital Signs - 24 hr 06/21/24 13:56 06/21/24 20:40 06/22/24 05:17 Temperature 97.7 F 97.6 F 98.7 F Pulse Rate 67 68 59 L Respiratory Rate 18 18 18 Blood Pressure 130/67 131/90 137/67 Pulse Oximetry 95 99 95 Intake/Output Intake/Output: Intake & Output 06/19/24 06/20/24 06/21/24 06/22/24 23:59 23:59 23:59 23:59 Intake Total 1450 3240 3507 1637 Balance 1450 3240 3507 1637 Meds/Results Medications: Active Medications Generic Name Dose Route Start Last Admin Trade Name Freq PRN Reason Stop Dose Admin Acetaminophen 650 mg 06/19/24 06:01 06/19/24 15:51 Acetaminophen 325 Mg Tablet PO 650 mg Q4H PRN Administration Mild Pain (1-3) or Fever Amoxicillin/Clavulanate Potassium 1 tablet 06/22/24 09:00 Amoxicillin/Clavulanate K 875-125 Mg Tab PO 06/27/24 08:59 Q12HR COSME Enoxaparin Sodium 40 mg 06/22/24 09:00 Enoxaparin 40 Mg/0.4 Ml Syringe SUB-Q DAILY COSME Famotidine 20 mg 06/21/24 21:00 06/21/24 20:44 Famotidine 20 Mg Tablet PO 20 mg Q12HR COSME Administration Hydromorphone HCl 0.5 mg 06/19/24 10:31 06/21/24 05:25 Hydromorphone Hcl Inj (*Crx) 1 Mg/Ml Syr IV PUSH 0.5 mg Q3H PRN Administration Pain Rated 7-10 Ibuprofen 800 mg in 200 mls @ 400 mls/hr 06/19/24 10:31 06/19/24 12:22 Caldolor 800 Mg/200 Ml IVPB Infused Q6H PRN Infusion Pain Rated 4-6 Metoprolol Tartrate 25 mg 06/19/24 09:00 06/21/24 20:43 Metoprolol Tartrate 25 Mg Tablet PO 25 mg Q12HR COSME Administration Ondansetron HCl 4 mg 06/19/24 06:01 06/21/24 05:25 Ondansetron Inj 4 Mg/2 Ml Vial IV PUSH 4 mg Q4H PRN Administration Nausea Oxycodone/Acetaminophen 1 tablet 06/21/24 11:34 06/21/24 20:43 Oxycodone/Acetaminophen (*Crx) 5-325 Mg Tablet PO 1 tablet Q6H PRN Administration Pain Rated 4-6 Oxycodone/Acetaminophen 1 tab 06/21/24 11:34 Oxycodone/Acetaminophen (*Crx) 10-325 Mg Tablet PO Q6H PRN Pain Rated 7-10 Radiology Results: ITS Impressions Abdomen/Pelvis CT 06/19/24 05:48 IMPRESSION: 1. Mesenteric inflammatory stranding with small associated abscess along the superior margin of the uterus, likely secondary to colonic diverticulitis. Abscess related to adjacent small bowel is less favored, although not excluded. Labs Labs: Laboratory Results - last 24 hr 06/21/24 08:56 WBC 8.9 RBC 4.22 Hgb 12.7 Hct 39.1 MCV 92.7 MCH 30.1 MCHC 32.5 RDW 13.5 Plt Count 386 H MPV 10.1 Sodium 136 L Potassium 4.3 Chloride 101 Carbon Dioxide 28 Anion Gap 7 BUN 4 L Creatinine 0.55 L Estim Creat Clear Calc 170 Estimated GFR > 60 Glucose 140 H Calcium 8.7 Total Bilirubin 0.4 AST 16 ALT 19 Alkaline Phosphatase 81 Total Protein 6.0 L Albumin 3.5 Quality VTE Prophylaxis VTE prophylaxis: pharmacologic ordered Hospitalist [facility] Advance Care Plan I have confirmed that the patient's Advanced Care Plan is present, code status is documented, or surrogate decision maker is listed in patient medical record.: Yes Medication Reconciliation I have utilized all available resources to obtain, update and review the patients current medications (includes all prescriptions, OTC, herbals, cannabis, and nutritional supplements).: Yes
[2024-06-22 08:10] LABS: Hematocrit 39.9 % (37.0-47.0); Hemoglobin 12.6 g/dL (12.0-15.0); Mean Corpuscular HGB Conc 31.6 g/dl (32-36); Mean Corpuscular Hemoglobin 29.4 pg (26-34); Mean Corpuscular Volume 93.2 fl (80-100); Platelet Count Result 375 k/mm3 (150-375); Red Blood Count 4.28 M/mm3 (4.2-5.4); Red Cell Distribution Width 13.4 % (11.5-14.5)
[2024-06-22 08:17] LABS: Alanine Aminotransferase 17 U/L (6-35); Albumin Level 3.5 g/dL (3.5-5.1); Alkaline Phosphatase 77 U/L (38-126); Anion Gap 8 mmol/L (4-12); Aspartate Amino Transferase 17 U/L (14-36); Bilirubin,Total 0.2 mg/dL (0.2-1.3); Blood Urea Nitrogen 5 mg/dL (7-17); Calcium 8.4 mg/dL (8.4-10.2); Carbon Dioxide 25 mmol/L (22-30); Chloride 104 mmol/L (98-107); Estimated CRCL calculation 192 ml/min; Estimated Glomerular Filt Rate > 60; Glucose 100 mg/dL (65-110); Sodium 137 mmol/L (137-145)
[2024-06-22] MEDS: AMOXICILLIN/CLAVULANATE K 875-125 MG TAB 1 TABLET PO ×2 (08:23→21:05)
[2024-06-22] MEDS: METOPROLOL TARTRATE 25 MG TABLET PO ×2 (08:23→21:05)
[2024-06-22] MEDS: FAMOTIDINE 20 MG TABLET PO ×2 (08:23→21:05)
[2024-06-22] MEDS: ENOXAPARIN 40 MG/0.4 ML SYRINGE SUB-Q (08:27)
--- NOTE | 2024-06-22 12:09 | PM.PNGS ---
Progress Note: A&P Assessment and Plan (1) Diverticulitis of large intestine with abscess without bleeding: Code(s): K57.20 - Diverticulitis of large intestine with perforation and abscess without bleeding Status: Acute Assessment and Plan: Agree with discharge on low-fiber diet. Discussed with hospitalist. He is giving her a couple of doses of Augmentin to see if she tolerates this. If so, we will discharge on Augmentin and cancel the allergic response to penicillins and amoxicillin. She plans to follow-up with a surgeon at [facility] Department of Colorectal surgery. I discussed with her staying on a low-fiber diet for a couple of weeks after discharge and then keeping popcorn, peanuts, sunflower seeds and pumpkin seeds to a minimum orally. Subjective Subjective Date/Time Seen: 06/22/24 12:09 Patient reports: feels better, pain is less (No need for IV pain medication last 24 hours), tolerating a regular diet (Low-fiber), bowel movement and afebrile Review of Systems Review of Systems: All systems reviewed & are unremarkable except as noted in HPI and below (HPI) Exam Const: General: cooperative, comfortable, no acute distress, alert and awake Orientation/consciousness: patient oriented x3 GI: Inspection: non-distended and obesity GI Palp: Yes Soft to palpation and No Tenderness to palpation present (GI) Objective Data Vital Signs Vital Signs: Vital Signs - 24 hr 06/21/24 13:56 06/21/24 20:40 06/22/24 05:17 Temperature 36.5 C 36.4 C 37.1 C Pulse Rate 67 68 59 L Respiratory Rate 18 18 18 Blood Pressure 130/67 131/90 137/67 Pulse Oximetry 95 99 95 06/22/24 08:23 Temperature Pulse Rate 97 Respiratory Rate Blood Pressure Pulse Oximetry Intake/Output Intake/Output: Intake & Output 06/19/24 06/20/24 06/21/24 06/22/24 23:59 23:59 23:59 23:59 Intake Total 1450 3240 3507 1877 Balance 1450 3240 3507 1877 Meds/Results Medications: Active Medications Generic Name Dose Route Start Last Admin Trade Name Freq PRN Reason Stop Dose Admin Acetaminophen 650 mg 06/19/24 06:01 06/19/24 15:51 Acetaminophen 325 Mg Tablet PO 650 mg Q4H PRN Administration Mild Pain (1-3) or Fever Amoxicillin/Clavulanate Potassium 1 tablet 06/22/24 09:00 06/22/24 08:23 Amoxicillin/Clavulanate K 875-125 Mg Tab PO 06/27/24 08:59 1 tablet Q12HR COSME Administration Enoxaparin Sodium 40 mg 06/22/24 09:00 06/22/24 08:27 Enoxaparin 40 Mg/0.4 Ml Syringe SUB-Q 40 mg DAILY COSME Administration Famotidine 20 mg 06/21/24 21:00 06/22/24 08:23 Famotidine 20 Mg Tablet PO 20 mg Q12HR COSME Administration Hydromorphone HCl 0.5 mg 06/19/24 10:31 06/21/24 05:25 Hydromorphone Hcl Inj (*Crx) 1 Mg/Ml Syr IV PUSH 0.5 mg Q3H PRN Administration Pain Rated 7-10 Ibuprofen 800 mg in 200 mls @ 400 mls/hr 06/19/24 10:31 06/19/24 12:22 Caldolor 800 Mg/200 Ml IVPB Infused Q6H PRN Infusion Pain Rated 4-6 Metoprolol Tartrate 25 mg 06/19/24 09:00 06/22/24 08:23 Metoprolol Tartrate 25 Mg Tablet PO 25 mg Q12HR COSME Administration Ondansetron HCl 4 mg 06/19/24 06:01 06/21/24 05:25 Ondansetron Inj 4 Mg/2 Ml Vial IV PUSH 4 mg Q4H PRN Administration Nausea Oxycodone/Acetaminophen 1 tablet 06/21/24 11:34 06/21/24 20:43 Oxycodone/Acetaminophen (*Crx) 5-325 Mg Tablet PO 1 tablet Q6H PRN Administration Pain Rated 4-6 Oxycodone/Acetaminophen 1 tab 06/21/24 11:34 Oxycodone/Acetaminophen (*Crx) 10-325 Mg Tablet PO Q6H PRN Pain Rated 7-10 Radiology Results: ITS Impressions Abdomen/Pelvis CT 06/19/24 05:48 IMPRESSION: 1. Mesenteric inflammatory stranding with small associated abscess along the superior margin of the uterus, likely secondary to colonic diverticulitis. Abscess related to adjacent small bowel is less favored, although not excluded. Labs Labs: Laboratory Results - last 24 hr 06/22/24 07:25 WBC 9.0 RBC 4.28 Hgb 12.6 Hct 39.9 MCV 93.2 MCH 29.4 MCHC 31.6 L RDW 13.4 Plt Count 375 MPV 10.0 Sodium 137 Potassium 4.0 Chloride 104 Carbon Dioxide 25 Anion Gap 8 BUN 5 L Creatinine 0.48 L Estim Creat Clear Calc 192 Estimated GFR > 60 Glucose 100 Calcium 8.4 Total Bilirubin 0.2 AST 17 ALT 17 Alkaline Phosphatase 77 Total Protein 6.0 L Albumin 3.5
[2024-06-22] MEDS: oxyCODONE/ACETAMINOPHEN (*CRX) 5-325 MG TABLET 1 TABLET PO (13:17)
[2024-06-23 05:00] VITALS: BP 137/66; PULSE 62; RESP 20; TEMP 36.4; O2SAT 96
[2024-06-23 07:29] LABS: Hematocrit 41.6 % (37.0-47.0); Hemoglobin 13.7 g/dL (12.0-15.0); Mean Corpuscular HGB Conc 32.9 g/dl (32-36); Mean Corpuscular Hemoglobin 30.2 pg (26-34); Mean Corpuscular Volume 91.6 fl (80-100); Mean Platelet Volume 9.9 fl (7.4-10.4); Platelet Count Result 414 k/mm3 (150-375); Red Blood Count 4.54 M/mm3 (4.2-5.4); Red Cell Distribution Width 13.2 % (11.5-14.5)
[2024-06-23 08:10] LABS: Alanine Aminotransferase 24 U/L (6-35); Albumin Level 3.8 g/dL (3.5-5.1); Alkaline Phosphatase 91 U/L (38-126); Anion Gap 10 mmol/L (4-12); Aspartate Amino Transferase 26 U/L (14-36); Bilirubin,Total 0.2 mg/dL (0.2-1.3); Blood Urea Nitrogen 6 mg/dL (7-17); Calcium 8.9 mg/dL (8.4-10.2); Carbon Dioxide 29 mmol/L (22-30); Chloride 100 mmol/L (98-107); Estimated CRCL calculation 170 ml/min; Estimated Glomerular Filt Rate > 60; Glucose 100 mg/dL (65-110); Sodium 139 mmol/L (137-145)
[2024-06-23] MEDS: AMOXICILLIN/CLAVULANATE K 875-125 MG TAB 1 TABLET PO (08:47)
[2024-06-23] MEDS: FAMOTIDINE 20 MG TABLET PO (08:47)
[2024-06-23] MEDS: METOPROLOL TARTRATE 25 MG TABLET PO (08:47)
[2024-06-23] MEDS: ENOXAPARIN 40 MG/0.4 ML SYRINGE SUB-Q (08:47)
--- NOTE | 2024-06-23 10:02 | PM.DS ---
DS: Admitting Diagnosis Discharge Date 06/23/2024 Admitting Diagnosis Diverticulitis DS: Discharge Diagnosis Discharge Diagnosis (1) PVC (premature ventricular contraction): Code(s): I49.3 - Ventricular premature depolarization Status: Acute (2) Hyperlipidemia: Onset Date: 02/28/22 Code(s): E78.5 - Hyperlipidemia, unspecified Status: Acute (3) Anxiety: Code(s): F41.9 - Anxiety disorder, unspecified Status: Acute (4) History of colonic diverticulitis: Code(s): Z87.19 - Personal history of other diseases of the digestive system Status: Acute Plan Please refer to hospital course for brief summary Recurrent diverticulitis Resolved Episodes of diverticulitis a from 2016 Bowel rest, IV fluids Reviewed the CT scan Surgery following recommend medical management Serial abdominal exams and lab Protonix 40 b.i.d. Zofran for nausea Monitor electrolytes Pain control ordered Will consider NG and TPN if necessary DC metronidazole due to dizziness DC ciprofloxacin Will start Meropenam Underwent EGD and colonoscopy 2020 History of PVCs Continue metoprolol 25 mg p.o. b.i.d. Metabolic syndrome Order lipid panel Ordered HbA1c Disposition: The patient last year had appointment made with Dr. Yobani velasquez [facility] but canceled her appointment before being seen. I recommended that she make an appointment to see him as an outpatient .Staying on a low-fiber diet for a couple of weeks after discharge and then keeping popcorn, peanuts, sunflower seeds and pumpkin seeds to a minimum orally. DS: Summary Hospital Course Hospital Course: 44-year-old female with a history of recurrent diverticulitis with previous perforation presenting to the emergency room with left lower quadrant abdominal pain that started last night and into this afternoon. Endorses a mild fever at home that responded nicely Tylenol. She is not any acute distress, denies any nauseousness, vomiting, diarrhea, constipation. No chest pain shortness a breath. States it feels somewhat similar to last time she had diverticulitis last year. No history of surgeries but she was told that she might need colonic resection of this is a recurrent issue but she is hesitant about getting that procedure done. ED labs: WBC 11.4, HgB 12.5, PLT 315, Na 136, K 3.9, Cr 0.57, AST 19,ALT 20 UA:Nitrate -ve,LE 1+ CT abd/Pelvis:Mesenteric inflammatory stranding with small associated abscess along the superior margin of the uterus, likely secondary to colonic diverticulitis. Abscess related to adjacent small bowel is less favored, although not excluded. According to the record review patient has multiple history of diverticulitis starting from 2016. Patient also had cholecystectomy 2017 which was complicated with abdominal discomfort and diarrhea for which she was given cholestyramine but gave her constipation. Patient underwent colonoscopy 06/25/2020 which showed diverticulosis without perforation or abscess without bleeding and internal hemorrhoids. Patient underwent endoscopy 09/08/2020 which shows gastritis. Currently patient is admitted in the setting of diverticulitis. In the ED patient was started metronidazole but patient complained of dizziness and it has been included as allergy. Currently patient on ciprofloxacin but started on metronidazole IV. If patient complains about any allergic symptoms will discontinue. As per surgery they will continue to monitor with serial abdominal examination and lab. As per surgical team prefer outpatient follow-up for surgical management of the recurrent diverticulitis. Do not recommend surgical management in the acute phase of diverticulitis that would be reserved for the perforated diverticulitis with signs of peritonitis or sepsis since the will be a high risk requiring ostomy. 06/23:The patient reports she is allergic to multiple antibiotics including penicillin, cephalosporin, and amoxicillin but cannot conform since she was told during childhood that she formed an allergic rash. The patient will be given Augmentin this morning and monitored with continuous cardiac and pulse oximetry. I advised nursing team to monitor for wheezing, tachycardia, tongue or lip edema, dermatological signs, GI signs, and neurological symptoms. If there are any signs of allergy, the patient will be placed in a non-rebreather, given hydrocortisone 100-250 mg IV 1 time, and epinephrine. The patient understands the plan and agrees to it. Patient tolerated the dose well and receive one more dose tonight and will be discharged tomorrow with Augmentin. 06/24: The patient tolerated the diet and Augmentin well. Will remove Penicillin and Amoxicillin from her allergy list. The patient last year had appointment made with Dr. Yobani velasquez [facility] but canceled her appointment before being seen. I recommended that she make an appointment to see him as an outpatient .Staying on a low-fiber diet for a couple of weeks after discharge and then keeping popcorn, peanuts, sunflower seeds and pumpkin seeds to a minimum orally.Removed PCN and amoxicillin allergy from her list Status at Discharge Cognitive/behavioral status at discharge: Stable Time Spent with Patient Time attestation: Total time spent providing and/or coordinating discharge services:45 minutes Exam Narrative: GENERAL: [Well-appearing, well-nourished, and in no acute distress.] HEAD: [Normocephalic, atraumatic.] EYES: [PERRLA and EOMI.] ENT: Nares clear, no rhinorrhea or epistaxis. Mucous membranes moist. NECK: Supple. CHEST: [Clear to auscultation. No respiratory distress.] HEART: [Regular rate and rhythm]. No murmur heard. [Normal peripheral pulses.] ABDOMEN: Protuberant abdomen but soft, tender to palpation left lower quadrant without peritonitis, [No rigidity or guarding] EXTREMITIES: Normal range of motion. [No edema.] SKIN: Warm, dry, no rash. NEURO: [No focal deficits]. Alert and oriented [x3.] PSYCH: [Normal mood and affect.] DS: Data Data Completed and Pending Labs on day of discharge: Labs from last 24 hours 06/23/24 06:47 WBC 10.0 RBC 4.54 Hgb 13.7 Hct 41.6 MCV 91.6 MCH 30.2 MCHC 32.9 RDW 13.2 Plt Count 414 H MPV 9.9 Sodium 139 Potassium 4.0 Chloride 100 Carbon Dioxide 29 Anion Gap 10 BUN 6 L Creatinine 0.55 L Estim Creat Clear Calc 170 Estimated GFR > 60 Glucose 100 Calcium 8.9 Total Bilirubin 0.2 AST 26 ALT 24 Alkaline Phosphatase 91 Total Protein 7.0 Albumin 3.8 Discharge Plan Discharge Attending physician on discharge: Mando Fermin Discharging Clinician: Mando Fermin Anticipated Discharge Date/Time: 06/23/24 10:10 Patient Disposition: Home, Self-Care Activity: as tolerated Diet: low fiber and other - see discharge instructions Discharge Instructions: Low-fiber diet for 2 weeks. After that, avoid eating large amounts of peanuts in the shell, popcorn, sunflower seeds or pumpkin seeds. The patient last year had appointment made with Dr. Yobani velasquez [facility] but canceled her appointment before being seen. I recommended that she make an appointment to see him as an outpatient .Staying on a low-fiber diet for a couple of weeks after discharge and then keeping popcorn, peanuts, sunflower seeds and pumpkin seeds to a minimum orally. Please follow up with your surgeon as OP. Please complete Augmentin PO twice a day for 5 days. In the event of any abdominal pain please seek near by ER. Patient Instructions: Antibiotic Form, Low Fiber Diet (DC) Patient Language: Nigerien Stand Alone Forms: General Discharge Information, Work/School Release IP Follow-up/Referrals: Abdulkadir Del Rio MD [Primary Care Provider] - Discharge Medications: New amoxicillin-pot clavulanate 875-125 mg tablet 1 tablet PO Q12H Qty: 10 0RF Rx Instructions: Please complete the course for 5 days. Continued metoprolol tartrate 25 mg tablet 25 mg PO BID Qty: 180 0RF Date of admission: 06/19/24 06:01 Primary Care Provider: Abdulkadir Del Rio Admitting Provider: Hiren Tyler Attending physician on admission: Hiren Tyler Condition: Stable
== END 2024-06-23 15:00 | disposition home or self-care (01) | DRG 391 ==
LOC: ANHED 04:17 → ANH3MEDSUR 06:40
PROVIDERS: Nurse Practitioner Family; Admitting Provider Internal Medicine; Emergency Provider Student in an Organized Health Care Education/Training Program; PCP Family Medicine; Visit Provider General Practice
DX: K57.92 Diverticulitis of intestine, part unspecified, without perforation or abscess without bleeding (principal); K65.1 Peritoneal abscess; Z68.42 Body mass index [BMI] 45.0-49.9, adult; E78.5 Hyperlipidemia, unspecified; E66.01 Morbid (severe) obesity due to excess calories; F41.9 Anxiety disorder, unspecified; I10 Essential (primary) hypertension; Z87.891 Personal history of nicotine dependence; Z88.0 Allergy status to penicillin; Z90.49 Acquired absence of other specified parts of digestive tract
CPT/HCPCS: 36415; 74177; 80053; 80061; 81001; 81025; 83036; 83605; 83690; 85025; 85027; 86140; 87086; 96374; 96375; 99285; A9270; J0744; J1171; J1644; J1650; J1741; J1836; J1956; J2185; J2405; J2470; J7120; Q9967

== ENCOUNTER 2024-09-23 03:05 | Emergency (ER) | payer BC, SELFPAY ==
--- NOTE | ~2024-09-23 | CT_ITS ---
CT of the Abdomen and Pelvis: Indication: Abdominal pain Technique: 2.5 mm axial scans were obtained through the abdomen and pelvis following intravenous adm inistration of 100 cc of Omnipaque 350. Dose reduction technique was used on this scan by utilizing a utomated exposure control and iterative reconstruction technique. The dose-length product (DLP) was 1 900.61 mGy-cm. COMPARISON: 06/19/2024 Findings: Scans through the lung bases are unremarkable. Probable diffuse hepatic steatosis the liver measuring 21.3 cm in length. The spleen, pancreas, adren als and kidneys are within normal limits. Cholecystectomy clips are present. No evidence of aortic an eurysm. No lymphadenopathy. There are probable minimal pericolonic inflammatory changes to sigmoid colon. No bowel obstruction. N o abscess or free air. Images through the pelvis were performed. 3 cm left ovarian cyst present. Urinary bladder unremarkabl e. No ascites. Impression: Minimal pericolonic inflammatory stranding at the sigmoid colon. Correlate for minimal acute divertic ulitis. No abscess, free air, or bowel obstruction. Hepatomegaly with probable hepatic steatosis. 3 cm left ovarian cyst. Reviewed, dictated and finalized at location . Impression: Minimal pericolonic inflammatory stranding at the sigmoid colon. Correlate for minimal acute diverticulitis. No abscess, free air, or bowel obstruction. Hepatomegaly with probable hepatic steatosis. 3 cm left ovarian cyst.
--- NOTE | ~2024-09-23 | XR_ITS ---
Portable chest x-ray Comparison: 02/23/2012 Clinical History: Chest pain Findings: Lungs are clear, without focal consolidation or pleural effusion. Cardiomediastinal silho uette is stable. Bones and soft tissues are unremarkable. Impression: Clear lungs. Reviewed, dictated and finalized at location . Impression: Clear lungs.
--- OUTSIDE RECORDS SUMMARY | 2024-09-23 03:07 | XMS_ITS | Encounter Summary ---
Author Organization [facility] Address [address] [place] [address] Phone Care Team Providers Care Transformation Consultant Name Role Phone Heraclio Morley DO Primary Care Provider [phone] Abdulkadir Del Rio MD Primary Care Provider [phone] Yobani Qiu MD Unavailable [phone] Encounter Details Date Type Department Care Team (Late st Contact Info) Description 08/30/2022 Orders Only [facility] Scanning, Provider Social History Tobacco Use Types Packs/Day Years Used Date Smoking Tobacco: Never Comments Unknown Sex and Gender Information Value Date Recorded Sex Assigned at Not on file 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
--- OUTSIDE RECORDS SUMMARY | 2024-09-23 03:07 | XMS_ITS | Clinical Summary ---
Author Organization [facility] Address [address] [place] [address] Care Team Providers Care Supervisor Malt House Name Role Phone Abdulkadir Del Rio MD Primary Care Provider [phone] Yobani Qiu MD Unavailable [phone] Allergies Active Allergy Reactions Criticality Noted Date Comments Amoxicillin Other (See comments) 07/12/2017 Metronidazole Unknown 07/23/2024 Sulfa Unknown 07/12/2017 Medications metoprolol tartrate (LOPRESSOR) 25 mg immediate release tablet Take 1 tablet (25 mg total) by mouth 2 (two) times a day Active Active Problems No known active problems Encounters Date Type Department Care Team Description 09/10/2024 Telephone [facility] Metabolic Weight Management [address] [place] [address] Medical Office Building [address], [address] [place] [address] Ashley Ashford CMA Sooner Appt 07/23/2024 9:30 AM CDT Office Visit [facility] Surgery [address] [place] [address] Medical Office Building [address] [place] [address] Yobani Qiu MD Class 3 severe obesity with body mass index (BMI) of 45.0 to 49.9 in adult, unspecified obesity type, unspecified whether serious comorbidity present (Primary Dx); Diverticulitis 07/23/2024 Telephone [facility] Surgery [address] [place] [address] Medical Office Building [address] [place] [address] Daria Wu RMA Follow-up from Last 3 Months Surgical History Surgery Date Site/Laterality Comments CHOLECYSTECTOMY 03/23/2018 - 04/22/2018 COLONOSCOPY 2020 - 04/22/2021 Medical History Medical History Date Comments Anxiety Hypertension Family History Medical History Relation Name Comments No Known Problems Father Crohn's disease Mother Relation Name Status Comments Father Mother Social History Tobacco Use Types Packs/Day Years Used Date Smoking Tobacco: Some Days Cigarettes Passive Smoke Exposure: Current Tobacco Cessation:Ready to Q uit: Not Asked; Counseling Given: Not Answered AUDIT-C Answer Date Recorded Q1: How often do you have a drink containing alc ohol? 2-4 times a month 07/23/2024 Q2: How many drinks containi ng alcohol do you have on a typical day when you are drinking? 3 or 4 07/23/2024 Q3: How often do you have si x or more drinks on one occasion? 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 Gender Identity Not on file Sexual Orientation Not on file Obstetrics History Last Filed Vital Signs Vital Sign Reading Time Taken Comments Blood Pressure 141/100 07/23/2024 9:51 AM CDT Pulse 62 07/23/2024 9:51 AM CDT Temperature 36.6 C (97.8 F) 07/23/2024 9:51 AM CDT Respiratory Rate - - Oxygen Saturation 95% 07/23/2024 9:51 AM CDT Inhaled Oxygen Concentration - - Weight 142.2 kg (313 lb 9.6 oz) 07/23/2024 9:51 AM CDT Height 172.7 cm (5' 8) 07/23/2024 9:51 AM CDT Body Mass Index 47.68 07/23/2024 9:51 AM CDT Plan of Treatment Health Maintenance Due Date Last Done Comments Breast Cancer Screening-Mammogram 1981 Cervical Cancer Screening 1981 Depression Screening 1981 Hepatitis C Screening 1981 DTaP/Tdap/Td Vaccine (1 - Tdap) 1992 Varicella Vaccines (1 of 2 - 13+ 2-dose series) 1994 Hepatitis B Screening 1999 Regular Well Visit/Exam 18-64 1999 Pneumococcal vaccine <65 (1 of 2 - PCV) 2000 Influenza Vaccine (Season Ended) 2024 02/05/2020, 04/02/2018 HPV Vaccines Aged Out No longer eligi ble based on patient's age to complete this topic Insurance [email or web address] OOS CIGNA [facility] OOS Member Subscriber Plan / Payer (Ef fective 2024-Present) Name:Donya Waltere Relation to Subscriber:Spouse Name:Ross Walter Date of :1979 (Home) (Work) Address: [address] [place] [id number] Payer ID:[id number] (NAIC) Type:BC AGUSTIN Address: [facility] [id number] [place] [id number] Care Teams Supervisor Malt House Relationship Specialty Start Date End Date Abdulkadir Del Rio MD [address] [address] PCP - General Family Medicine 09/05/22 Yobani Qiu MD [id number] [place] [address] Surgeon Colon and Rectal Surgery 07/23/24
--- OUTSIDE RECORDS SUMMARY | 2024-09-23 03:07 | XMS_ITS | Referral Summary ---
Author Organization [facility] Address [facility] [place] [address] Care Team Providers Care Business Applications Analyst Name Role Phone Abdulkadir Del Rio MD Primary Care Provider [phone] Yobani Qiu MD Unavailable [phone] Encounters Date Type Department Care Team Description 09/10/2024 Telephone [facility] Metabolic Weight Management [address] [place] [address] Medical Office Building [address], [address] [place] [address] Ashley Ashford CMA Sooner Appt 07/23/2024 Telephone [facility] Surgery [address] [place] [address] Office [address] [place] [address] Daria Wu RMA Follow-up 07/23/2024 9:30 AM CDT Office Visit [facility] Surgery [address] [place] [address] [address] [place] [address] Yobani Qiu MD Class 3 severe obesity with body mass index (BMI) of 45.0 to 49.9 in adult, unspecified obesity type, unspecified whether serious comorbidity present (Primary Dx); Diverticulitis from Last 3 Months Allergies Active Allergy Reactions Criticality Noted Date Comments Amoxicillin Other (See comments) 07/12/2017 Metronidazole Unknown 07/23/2024 Sulfa Unknown 07/12/2017 Medications metoprolol tartrate (LOPRESSOR) 25 mg immediate release tablet Take 1 tablet (25 mg total) by mouth 2 (two) times a day Active Active Problems No known active problems Social History Tobacco Use Types Packs/Day Years [...] on file 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 OOS CIGNA [facility] OOS Care Teams Business Applications Analyst Relationship Specialty Start Date End Date Abdulkadir Del Rio MD [address] [address] PCP - General Family Medicine 09/05/22 Yobani Qiu MD [phone] [place] [address] Surgeon Colon and Rectal Surgery 07/23/24
[2024-09-23 03:13] VITALS: BP 129/50; PULSE 67; RESP 15; TEMP 36.3; O2SAT 95
--- NOTE | 2024-09-23 03:16 | ECG_ITS ---
Test Date: 2024-09-23 03:27:00 Measurements Intervals [place] Rate: 66 P: 18 NC: 149 QRS: -16 QRSD: 112 T: 24 QT: 429 QTc: 452 Interpretive Statements SINUS RHYTHM INCOMPLETE RIGHT BUNDLE BRANCH BLOCK BORDERLINE R WAVE PROGRESSION, ANTERIOR LEADS CONSIDER INFERIOR INFARCT, AGE INDETERMINATE ABNORMAL ECG No previous ECG available for comparison Electronically Signed On 09-23-2024 06:16:21 CDT by Meir Mena D.O.
[2024-09-23 03:17] VITALS: BP 129/50; PULSE 67; RESP 17; O2SAT 95
[2024-09-23 03:33] LABS: Basophils Absolute Auto 0.1 K/mm3 (0.0-0.1); Basophils Percent Auto 0.8 % (0.2-1.2); Eosinophils Absolute Auto 0.3 K/mm3 (0-0.3); Eosinophils Percent Auto 1.8 % (0-4.4); Hematocrit 39.7 % (37.0-47.0); Hemoglobin 12.6 g/dL (12.0-15.0); Immature Granulocyte Absolute 0.09 K/mm3 (0.00-0.031); Immature Granulocyte Percent A 0.6 % (0-0.5); Lymphocytes Absolute Auto 4.28 K/mm3 (0.9-3.2); Lymphocytes Percent Auto 27.8 % (18.3-44.2); Mean Corpuscular HGB Conc 31.7 g/dl (32-36); Mean Corpuscular Hemoglobin 28.9 pg (26-34); Mean Corpuscular Volume 91.1 fl (80-100); Mean Platelet Volume 9.3 fl (7.4-10.4); Monocytes Absolute Auto 1.2 K/mm3 (0.1-0.6); Monocytes Percent Auto 7.9 % (2.6-8.5); Neutrophils Absolute Auto 9.4 K/mm3 (1.3-6.7); Neutrophils Percent Auto 61.1 % (45.5-73.1); Platelet Count Result 534 k/mm3 (150-375); Red Blood Count 4.36 M/mm3 (4.2-5.4); Red Cell Distribution Width 14.3 % (11.5-14.5); White Blood Count 15.4 K/mm3 (4.5-10.0)
[2024-09-23 03:49] LABS: BEDSIDEPREGUCG Negative (Negative)
[2024-09-23 03:52] LABS: Alanine Aminotransferase 19 U/L (6-35); Albumin Level 3.9 g/dL (3.5-5.1); Alkaline Phosphatase 95 U/L (38-126); Anion Gap 9 mmol/L (4-12); Aspartate Amino Transferase 20 U/L (14-36); Bilirubin,Total 0.3 mg/dL (0.2-1.3); Blood Urea Nitrogen 8 mg/dL (7-17); Calcium 9.3 mg/dL (8.4-10.2); Carbon Dioxide 28 mmol/L (22-30); Chloride 99 mmol/L (98-107); Estimated CRCL calculation 141 ml/min; Estimated Glomerular Filt Rate > 60; Glucose 125 mg/dL (65-110); Lipase 29 U/L (23-300); Potassium 3.8 mmol/L (3.4-5.0); Sodium 136 mmol/L (137-145)
[2024-09-23 04:15] LABS: Add Urine Microscopic? YES; Appearance Urine Turbid (Clear); Bacteria Urine 2+ /hpf; Bilirubin Urine Negative (Negative); Blood Urine 1+ (Negative); Color Urine Yellow (Yellow); Glucose Urine UA Negative (Negative); Ketones Urine Trace mg/dL (Negative); Leukocyte Esterase Ur 1+ LEU/UL (Negative); Nitrate Urine Negative (Negative); Protein Urine 2+ mg/dL (Negative); Squamous Epithelial Cell Urine Moderate /hpf (Few); pH Urine 5.5 (5.0-9.0)
--- OUTSIDE RECORDS SUMMARY | 2024-09-23 04:23 | XMS_ITS | Referral Summary ---
Author Organization [facility] Address [facility] [place] [address] Care Team Providers Care Reliability Technologist Name Role Phone Abdulkadir Del Rio MD Primary Care Provider [phone] Yobani Qiu MD Unavailable [phone] Encounters Date Type Department Care Team Description 09/10/2024 Telephone [facility] Metabolic Weight Management [address] [place] [address] Medical Office Building [address], [address] [place] [address] Ashley Ashford CMA Sooner Appt 07/23/2024 Telephone [facility] Surgery [address] [place] [address] Office [address] [place] [address] Daria Wu RMA Follow-up 07/23/2024 9:30 AM CDT Office Visit [facility] Surgery [address] [place] [address] Office [address] [place] [address] Yobani Qiu MD Class 3 [...] on file 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
--- OUTSIDE RECORDS SUMMARY | 2024-09-23 04:23 | XMS_ITS | Encounter Summary ---
Author Organization [facility] Address [address] [place] [address] Phone Care Team Providers Care Vessel Ordinary Seaman Name Role Phone Heraclio Morley DO Primary Care Provider [phone] Abdulkadir Del Rio MD Primary Care Provider [phone] Yobani Qiu MD Unavailable [phone] Encounter Details Date Type Department Care Team (Late st Contact Info) Description 08/30/2022 Orders Only [facility] Scanning, Provider Social History Tobacco Use Types Packs/Day Years Used Date Smoking Tobacco: Never Comments Unknown Sex and Gender Information Value Date Recorded Sex Assigned at Not on file 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
--- OUTSIDE RECORDS SUMMARY | 2024-09-23 04:23 | XMS_ITS | Clinical Summary ---
Author Organization [facility] Address [address] [place] [address] Care Team Providers Care Rubbish Collection Supervisor Name Role Phone Abdulkadir Del Rio MD Primary Care Provider [phone] Yobani Qiu MD Unavailable [phone] Allergies Active Allergy Reactions Criticality Noted Date Comments Amoxicillin Other (See comments) 07/12/2017 Metronidazole Unknown 07/23/2024 Sulfa Unknown 07/12/2017 Medications metoprolol tartrate (LOPRESSOR) 25 mg immediate release tablet Take 1 tablet (25 mg total) by mouth 2 (two) times a day Active Active Problems No known active problems Encounters Date Type Department Care Team Description 09/10/2024 Telephone [facility] Metabolic Weight Management [address] [place] [address] Medical Office Building [address], [address] [place] [address] Ashley Ashford CMA Sooner Appt 07/23/2024 9:30 AM CDT Office Visit [facility] Surgery [address] [place] [address] Medical Office Building [address] [place] [address] Yobani Qiu MD Class 3 severe obesity with body mass index (BMI) of 45.0 to 49.9 in adult, unspecified obesity type, unspecified whether serious comorbidity present (Primary Dx); Diverticulitis 07/23/2024 Telephone [facility] Surgery [address] [place] [address] Medical Office Building [address] [place] [address] Daria Wu RMA Follow-up from [...] on file 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 Gender Identity Not on file Sexual Orientation [...] patient's age to complete this topic Insurance [employer] OOS CIGNA [email or web address] OOS Member Subscriber Plan / Payer (Ef fective 2024-Present) Name:Donya Waltere Relation to Subscriber:Spouse Name:Ross Walter Date of :1979 (Home) (Work) Address: [address] [place] [id number] Payer ID:[id number] (NAIC) Type:BC AGUSTIN Address: [facility] [id number] [place] [id number] Care Teams Rubbish Collection Supervisor Relationship Specialty Start Date End Date Abdulkadir Del Rio MD [address] [address] PCP - General Family Medicine 09/05/22 Yobani Qiu MD [phone] [place] [address] Surgeon Colon and Rectal Surgery 07/23/24
--- NOTE | 2024-09-23 04:34 | ED.ABDPAIN ---
HPI - Abdominal Pain General Chief Complaint: Abdominal Pain Stated Complaint: extreme abd pain, chest pain, dyspnea Time Seen by Provider: 09/23/24 03:39 Source: patient and family Limitations: no limitations History of Present Illness HPI narrative: Patient presents with acute onset low abdominal pain that woke her from sleep. History of diverticulitis and abscess that responded to antibiotics, did not require surgery or drainage. Hospitalized in June for this. Pain described as sharp, 10/10 in severity. She is also concerned for chest pain and dyspnea. LBM yesterday. CELIA 7pm. Not on anticoagulation. No fevers but chills. Nauseated but no vomit. No cough. No unilateral or bilateral edema. No hemoptysis, recent surery/trauma, history PE/DVT. Not on hormones/ control. Cardiac risk factors HTN: Yes (on metoprolol) HLD: No DM: No Obese: Yes Smoker: No Personal history UT/TIA/CVA: No Fam Hx UT in first degree relative <65yo: No Related Data Allergies Allergy/AdvReac Type Severity Reaction Status Date / Time metronidazole (From Flagyl) Allergy Intermediate Dizziness/BLACKED Verified 09/23/24 03:06 OUT VISION Cephalosporins Allergy Unknown Rash Verified 09/23/24 03:06 Sulfa (Sulfonamide Allergy Unknown Rash Verified 09/23/24 03:06 Antibiotics) sulfamethizole Allergy Unknown Rash Verified 09/23/24 03:06 trimethoprim Allergy Unknown Rash Verified 09/23/24 03:06 [facility] Past Medical History Medical History Elevated fasting glucose (06/23/24) glucose 100 with hemoglobin A1c 5.7 GFR 60 on 06/23/2024 UTI (urinary tract infection) Prediabetes Heartburn Anxiety B12 deficiency Acute bronchitis Candidiasis of breast Urinary frequency Dysuria Gastritis (~09/08/20) moderate gastritis on EGD 09/08/2020. Diverticulosis multiple diverticula on colonoscopy 06/25/2020. Back pain with radiculopathy Back Pain Screening for tuberculosis Swelling, mass, or lump in chest Screening mammogram for breast cancer Mammogram normal 06/28/2022. Encounter for gynecological examination (general) (routine) without abnormal findings Diverticulitis large intestine w/o perforation or abscess w/o bleeding (~11/2016) history of recurrent sigmoid diverticulitis with 5 or 6 episodes since November,. Colonoscopy 06/25/2020 with diverticulosis but otherwise normal with recheck in 10 years. Abdominal pain Epigastric pain Obesity, morbid, BMI 40.0-49.9 Adverse reaction to antibiotic Nausea HTN (hypertension) Depression Blood in stool Post depression Solitary pulmonary nodule PVC (premature ventricular contraction) Frequent PVCs on Holter monitor on 09/11/2018. Bronchitis Falls Fainting Chicken pox Migraine headache Hemorrhoids Pneumonia Surgical History Surgical History (Updated 09/24/24 @ 09:34 by Valencia Bryant MD) History of cholecystectomy H/O removal of cyst right arm,1989 Family History Family History Mother Diabetes mellitus Hypertension Depression Father Patient's father is in good health Alcoholism Other Diabetes mellitus Cerebrovascular accident Hypertension Other Family history of colonic diverticulitis Social History Social History Smoking packs per day: 1 Smoking cigarettes per day: 20.0 Years smoked: 10 Smoking pack-years: 10.00 Smoking status: Former smoker Alcohol intake: current Drinks per week: 4 Alcohol use details: SOCIAL Substance use: never Substance use type: does not use Do You Feel Safe in your Home?: Yes Lack of Transportation: No Lack of Food: Never True Current Housing: I Have Housing Concerned About Future Housing: No Difficulty Paying Gas/Electric Bills: No Difficulty Paying for Meds: No Currently Unemployed: No Education: Bachelor's Degree Difficulty w/ Childcare or Family Care: No Living arrangements: with family 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 EYES: Non injected, non icteric ENT: Nares clear, no rhinorrhea or epistaxis. Gross auditory acuity intact. Tacky mucous membranes. NECK: Supple. No meningismus. CHEST: Speaking in full sentences. No respiratory distress. HEART: Regular rate and rhythm. . ABDOMEN: Obese but Soft, nondistended. Mild tenderness to palpation in RLQ > LLQ. No rigidity or guarding. Not peritoneal EXTREMITIES: Normal range of motion. No lower extremity edema. SKIN: Warm, dry, no rash. NEURO: No focal deficits. Alert and oriented. Answering questions. Following commands. Normal speech without aphasia or dysarthria. PSYCH: Normal mood and affect. Course Vital Signs Vital signs: Vital Signs Temperature 97.4 F L 09/23/24 03:13 Pulse Rate 67 09/23/24 03:13 Respiratory Rate 15 09/23/24 03:13 Blood Pressure 129/50 L 09/23/24 03:13 Pulse Oximetry 95 09/23/24 03:13 Temperature 97.4 F L 09/23/24 03:13 Pulse Rate 79 09/23/24 07:53 Respiratory Rate 16 09/23/24 07:53 Blood Pressure 148/78 H 09/23/24 07:53 Pulse Oximetry 95 09/23/24 07:53 Oxygen Delivery Room Air 09/23/24 07:17 Oxygen Flow Rate 2 09/23/24 05:39 MDM - Abdominal Pain MDM Narrative Medical decision making narrative: Patient presents with acute onset low abdominal pain as well as chest pain and dyspnea, associated with nausea. History of diverticulitis complicated by abscess that required hospitalization but responded to antibiotics (no surgery/drainage). In the emergency department she is afebrile with acceptable vital signs. Diastolic blood pressure slightly low but MAP >75. Ordered CT , antiemetic, analgesic medication and IV fluids. test negative. Leukocytosis and thrombocytosis, the latter has been seen before though higher today. PERC Rule Age greater than or equal to 50: 0 HR greater than or equal to 100: 0 O2 sat room air <95%: 0 Unilateral leg swellin Hemoptysis:0 Recent surgery or trauma less than 4 wks ago requiring tx with general anesthesia:0 Prior PE or DVT:0 Hormone use (OCP, HRT or estrogenic hormone use in M/F patients): 0 Will defer further work up for PE> HEART SCORE History 2 highly suspicious 1 moderately suspicious 0 slightly suspicious History score [address] depression/elevation not due to LBBB, LVH, or digoxin [address] depression but LBBB, LVH, nonspecific repolarization changes 0 normal ECG score 0 Age 2 >/= 65 1 45-64 0 <45 Age score 0 Risk factors (HTN, hypercholesterolemia, DM, obesity with BMI >30, current smoker or cessation </=3mo), positive fam hx with parent or sibling with CVD before age 65, atherosclerotic disease (prior UT, PCI/CABG, CVA/TIA, or peripheral arterial disease) 2 >/= 3 risk factors or history of atherosclerotic dz 1 - 1-2 risk factors 0 no known risk factors Risk factor score 1 Initial Troponin 2 >3 times normal limit 1 1-3 times normal limit 0 less than or equal to normal limit Troponin score 0 Total HEART Score 1 Urine does appear to be infected. Does not automatically reflex to culture based on the squamous cells however there is enough pretest probability that a urine culture was ordered and I did call the lab to ensure they would process this. Patient has 3 previous urine cultures in the system but none showed growth to guide antibiotic therapy. CT with concern for acute uncomplicated diveritculitis. She has several antibiotic allergies. Amoxicillin-clavulanate ER 1000 mg (i.e. two tablets) BID for 7 days will be prescribed. She does have an listed allergy to cephalosporins but has received this therapy before and this is otherwise low cross-reactivity in general. First dose given in the emergency department. She is also given prescriptions for ibuprofen and acetaminophen for pain control (with narcotics for breakthrough pain with bowel regimen). Also Rx for Zofran. Repeat troponin negative. Advised follow up with GI and provided referral for this and cardiology as needed. Differential Diagnosis Differential diagnosis: Likely abdominal pain, acute appendicitis, calculus of kidney, constipation, diverticulitis, endometriosis, pancreatitis, small bowel obstruction and other (ACS; gastritis/GERD; UTI/pyelo) Lab Data Attestation: I reviewed the patient's lab results. 09/23/24 03:23 09/23/24 03:23 Labs: Lab Results 09/23/24 09/23/24 09/23/24 Range/Units 03:23 03:43 03:47 WBC 15.4 H (4.5-10.0) K/mm3 RBC 4.36 (4.2-5.4) M/mm3 Hgb 12.6 (12.0-15.0) g/dL Hct 39.7 (37.0-47.0) % MCV 91.1 (80-100) fl MCH 28.9 (26-34) pg MCHC 31.7 L (32-36) g/dl RDW 14.3 (11.5-14.5) % Plt Count 534 H (150-375) k/mm3 MPV 9.3 (7.4-10.4) fl Immature Gran % (Auto) 0.6 H (0-0.5) % Neut % (Auto) 61.1 (45.5-73.1) % Lymph % (Auto) 27.8 (18.3-44.2) % [place] % (Auto) 7.9 (2.6-8.5) % Eos % (Auto) 1.8 (0-4.4) % Baso % (Auto) 0.8 (0.2-1.2) % Lymph # (Auto) 4.28 H (0.9-3.2) K/mm3 [place] # (Auto) 1.2 H (0.1-0.6) K/mm3 Eos # (Auto) 0.3 (0-0.3) K/mm3 Baso # (Auto) 0.1 (0.0-0.1) K/mm3 Abs Immat Gran (auto) 0.09 H (0.00-0.031) K/mm3 Absolute Neuts (auto) 9.4 H (1.3-6.7) K/mm3 Absolute Nucleated RBC 0.000 (0.0-0.012) K/mm3 Nucleated RBC % 0.0 (0.0-0.2) % Sodium 136 L (137-145) mmol/L Potassium 3.8 (3.4-5.0) mmol/L Chloride 99 (98-107) mmol/L Carbon Dioxide 28 (22-30) mmol/L Anion Gap 9 (4-12) mmol/L BUN 8 (7-17) mg/dL Creatinine 0.61 L (0.7-1.0) mg/dL Estim Creat Clear Calc 141 ml/min Estimated GFR > 60 (59 - ) Glucose 125 H (65-110) mg/dL Calcium 9.3 (8.4-10.2) mg/dL Total Bilirubin 0.3 (0.2-1.3) mg/dL AST 20 (14-36) U/L ALT 19 (6-35) U/L Alkaline Phosphatase 95 (38-126) U/L Troponin I 0.017 (0.000-0.034) ng/mL Total Protein 7.0 (6.3-8.2) g/dL Albumin 3.9 (3.5-5.1) g/dL Lipase 29 (23-300) U/L Urine Color Yellow (Yellow) Urine Appearance Turbid H (Clear) Urine pH 5.5 (5.0-9.0) Ur Specific [place] 1.020 (1.001-1.035) Urine Protein 2+ H (Negative) mg/dL Urine Glucose (UA) Negative (Negative) mg/dL Urine Ketones Trace H (Negative) mg/dL Ur Blood (Man) 1+ H (Negative) Urine Nitrate Negative (Negative) Urine Bilirubin Negative (Negative) Urine Urobilinogen 1.0 (<2.0) mg/dL Leukocyte Esterase Rfl 1+ H (Negative) DARRELL/UL Urine RBC 3-5 H (0-2) /hpf Urine WBC 11-20 H (0-3) /hpf Ur Squamous Epith Cells Moderate (Few) /hpf Urine Bacteria 2+ H /hpf Urine Casts 3-5 POC Urine HCG, Qual Negative (Negative) 09/23/24 Range/Units 06:34 WBC (4.5-10.0) K/mm3 RBC (4.2-5.4) M/mm3 Hgb (12.0-15.0) g/dL Hct (37.0-47.0) % MCV (80-100) fl MCH (26-34) pg MCHC (32-36) g/dl RDW (11.5-14.5) % Plt Count (150-375) k/mm3 MPV (7.4-10.4) fl Immature Gran % (Auto) (0-0.5) % Neut % (Auto) (45.5-73.1) % Lymph % (Auto) (18.3-44.2) % [place] % (Auto) (2.6-8.5) % Eos % (Auto) (0-4.4) % Baso % (Auto) (0.2-1.2) % Lymph # (Auto) (0.9-3.2) K/mm3 [place] # (Auto) (0.1-0.6) K/mm3 Eos # (Auto) (0-0.3) K/mm3 Baso # (Auto) (0.0-0.1) K/mm3 Abs Immat Gran (auto) (0.00-0.031) K/mm3 Absolute Neuts (auto) (1.3-6.7) K/mm3 Absolute Nucleated RBC (0.0-0.012) K/mm3 Nucleated RBC % (0.0-0.2) % Sodium (137-145) mmol/L Potassium (3.4-5.0) mmol/L Chloride (98-107) mmol/L Carbon Dioxide (22-30) mmol/L Anion Gap (4-12) mmol/L BUN (7-17) mg/dL Creatinine (0.7-1.0) mg/dL Estim Creat Clear Calc ml/min Estimated GFR (59 - ) Glucose (65-110) mg/dL Calcium (8.4-10.2) mg/dL Total Bilirubin (0.2-1.3) mg/dL AST (14-36) U/L ALT (6-35) U/L Alkaline Phosphatase (38-126) U/L Troponin I < 0.012 D (0.000-0.034) ng/mL Total Protein (6.3-8.2) g/dL Albumin (3.5-5.1) g/dL Lipase (23-300) U/L Urine Color (Yellow) Urine Appearance (Clear) Urine pH (5.0-9.0) Ur Specific [place] (1.001-1.035) Urine Protein (Negative) mg/dL Urine Glucose (UA) (Negative) mg/dL Urine Ketones (Negative) mg/dL Ur Blood (Man) (Negative) Urine Nitrate (Negative) Urine Bilirubin (Negative) Urine Urobilinogen (<2.0) mg/dL Leukocyte Esterase Rfl (Negative) DARRELL/UL Urine RBC (0-2) /hpf Urine WBC (0-3) /hpf Ur Squamous Epith Cells (Few) /hpf Urine Bacteria /hpf Urine Casts POC Urine HCG, Qual (Negative) Imaging Data Attestation: I personally reviewed and interpreted this imaging study as follows: My impression: Poor penetration due to body habitus but symmetric haziness not felt to represent pathology. Questionable mediastinal widening. Radiologist's impression: ITS Impressions Abdomen/Pelvis CT 09/23/24 05:29 Impression: Minimal pericolonic inflammatory stranding at the sigmoid colon. Correlate for minimal acute diverticulitis. No abscess, free air, or bowel obstruction. Hepatomegaly with probable hepatic steatosis. 3 cm left ovarian cyst. Chest X-Ray 09/23/24 05:32 Impression: Clear lungs. ECG Data EKG #1: Attestation: I personally reviewed and interpreted this ECG as follows: ECG completion date: 09/23/24 ECG completion time: 03:27 Interpretation: Normal sinus rhythm at a rate of [address] interval 149. QRS 112. QT/QTC 429/443. T-wave flattening/inversion in lead 3 but otherwise upright in normal in contiguous inferior leads 2 and AVF. No other T-wave inversions. EKG #2: Attestation: I personally reviewed and interpreted this ECG as follows: ECG completion date: 09/23/24 ECG completion time: 06:33 Interpretation: Normal sinus rhythm at a rate of [address] interval 143. QRS 114. QT/QTC 426/454. There is a PVC appreciated. T-wave flattening in 3 but upright in normal in contiguous inferior leads 2 and AVF. No other T-wave inversions. Discharge Plan Discharge Clinical Impression: Chest pain, Shortness of breath, Leukocytosis, Thrombocytosis, UTI (urinary tract infection), Diverticulitis, Hepatomegaly, Left ovarian cyst Patient Disposition: Home Condition: Stable Instructions: Antibiotic Form, Chest Pain (ED), Ovarian Cyst (ED), Diverticulitis (DC), Urinary Tract Infection in Women (DC), Narcotic Safety (ED), Diverticulitis Diet (ED), Shortness of Breath (ED) Additional Instructions: As we discussed, you do appear to have diverticulitis without complication. You received your 1st dose of antibiotic in the emergency department with the rest of the course prescribed. A urine culture is pending to see if an alternative antibiotic regimen would be needed to treat your UTI. Acetaminophen/Tylenol (maximum 4000 mg per day) is safe to take with NSAIDs (ibuprofen/Motrin) for pain relief. For breakthrough brain, a short course of opiate/narcotic medications has been prescribed. If you take this medication it is recommended that you be on a bowel regimen to reduce the chance of constipation which could complicate your condition. Follow-up with a racket stringer should be considered; referral listed below. No cause of your chest pain or shortness of breath was determined based on her workup which included EKGs, cardiac enzymes (x2). You are otherwise low, but not NO risk so recommend outpatient follow up which your primary care physician can help arrange. Alternatively, the name of a diagrammer and seamer is listed below. You did have evidence of an ovarian cyst. Anti-inflammatories such as ibuprofen/Motrin can help with this particular pain. Return to the Emergency Department immediately if the pain worsens, develops fever, persistent and uncontrolled vomiting, or for any new symptoms or concerns. Oral disintegrating tablets of Zofran can help if you have recurrent nausea/vomiting. Patient Language: Hebrew Prescriptions: New amoxicillin-pot clavulanate [Augmentin] 500-125 mg tablet 2 tablet PO Q12H 7 Days Qty: 28 0RF ibuprofen 600 mg tablet 600 mg PO TID PRN (Reason: pain) Qty: 30 0RF acetaminophen 500 mg capsule 1,000 mg PO Q6H PRN (Reason: pain) Qty: 30 0RF docusate sodium 100 mg capsule 100 mg PO DAILY Qty: 10 0RF oxycodone 5 mg tablet 5 mg PO Q8H PRN (Reason: pain) 5 Days Qty: 10 0RF ondansetron 4 mg tablet,disintegrating 4 mg PO Q8H PRN (Reason: nausea and vomiting) Qty: 7 0RF No Action Zepbound 2.5 mg/0.5 mL pen injector 2.5 mg subcut WEEKLY Qty: 2 0RF Rx Instructions: for 4 weeks metoprolol tartrate 25 mg tablet 25 mg PO BID Qty: 180 0RF hydrocortisone [Anusol-HC] 2.5 % cream with perineal applicator 1 applic RECTAL BID-TID PRN (Reason: hemorrhoids) Qty: 30 5RF Follow-up/Referrals: Abdulkadir Del Rio MD [Primary Care Provider] - Lety Koehler MD [Physician] - (Cardiology) Kendrick Valdez MD [Physician] - (Gastroenterology) Stand Alone Forms: Work/School Release IP Time of Disposition: 07:32
[2024-09-23] MEDS: MORPHINE SULFATE (*CRX) 4 MG/ML INJ 8 MG IV PUSH (04:54)
[2024-09-23] MEDS: ONDANSETRON INJ 4 MG/2 ML VIAL IV PUSH (04:55)
[2024-09-23] MEDS: SODIUM CHLORIDE 0.9% IV 1,000 ML 999 ML IV CONT (04:55)
--- NOTE | 2024-09-23 04:58 | PC.NURSE ---
X ray completed and patient taken to CT at this time.
[2024-09-23] MEDS: HYDROmorphone HCL INJ (*CRX) 2 MG/ML VIAL 1 MG IV PUSH (05:31)
[2024-09-23 05:39] VITALS: O2SAT 98
[2024-09-23 05:43] LABS: Troponin I 0.017 ng/mL (0.000-0.034)
[2024-09-23] MEDS: AMOXICILLIN/CLAVULANATE K 500-125 MG TAB 2 TABLET PO (06:25)
--- NOTE | 2024-09-23 06:28 | ECG_ITS ---
Test Date: 2024-09-23 06:33:34 Measurements Intervals [place] Rate: 74 P: 14 GA: 143 QRS: -15 QRSD: 114 T: 23 QT: 426 QTc: 475 Interpretive Statements SINUS RHYTHM WITH OCCASIONAL VENTRICULAR PREMATURE COMPLEXES INCOMPLETE RIGHT BUNDLE BRANCH BLOCK DELAYED PRECORDIAL R/S TRANSITION BORDERLINE ECG Compared to ECG 09/23/2024 03:27:00 Ventricular premature complex(es) now present Electronically Signed On 09-23-2024 07:04:54 CDT by Meir Mena D.O.
[2024-09-23 07:17] VITALS: O2SAT 97
[2024-09-23 07:20] LABS: Troponin I < 0.012 ng/mL (0.000-0.034)
[2024-09-23 07:28] VITALS: BP 148/81; PULSE 80; RESP 14; O2SAT 92
[2024-09-23] MEDS: KETOROLAC 15 MG/ML VIAL (*BKC) IV PUSH (07:39)
[2024-09-23 07:53] VITALS: BP 148/78; PULSE 79; RESP 16; O2SAT 95
== END 2024-09-23 07:56 | disposition home or self-care (01) ==
PROVIDERS: Emergency Provider Student in an Organized Health Care Education/Training Program; PCP Family Medicine
DX: R07.9 Chest pain, unspecified (principal); R06.02 Shortness of breath; D72.829 Elevated white blood cell count, unspecified; D75.839 Thrombocytosis, unspecified; N39.0 Urinary tract infection, site not specified; K57.32 Diverticulitis of large intestine without perforation or abscess without bleeding; R16.0 Hepatomegaly, not elsewhere classified; N83.202 Unspecified ovarian cyst, left side
CPT/HCPCS: 36415; 71045; 74177; 80053; 81001; 81025; 83690; 84484; 85025; 87086; 93005; 96361; 96374; 96375; 99284; A9270; J1171; J1885; J2270; J2405; J7030; Q9967

== ENCOUNTER 2025-03-11 08:59 | Outpatient (CLI) | payer OTHER, BC, SELFPAY ==
--- NOTE | ~2025-03-11 | MM_ITS ---
EXAMINATION: MM screening maximino BI w kristin HISTORY: Screening TECHNIQUE: Craniocaudal and mediolateral oblique 3-D tomosynthesis images were obtained and synthetic 2-D images were generated. CAD analysis was submitted and interpreted. COMPARISON: 06/28/2022 BREAST PARENCHYMAL COMPOSITION: Not Dense: There are scattered areas of fibroglandular density. FINDINGS: There is no evidence of suspicious mass, calcification, or architectural distortion to suggest malignancy in either breast. IMPRESSION: 1. No mammographic evidence of malignancy. 2. Recommend routine screening mammography in one year. BI-RADS Category 1: Negative Reviewed, dictated and finalized at location B. INE STACKER
--- OUTSIDE RECORDS SUMMARY | 2025-03-11 11:19 | XMS_ITS | Clinical Summary ---
Author Organization [facility] Address [address] [place] [id number] Care Team Providers Care Felt Coverer Name Role Phone Abdulkadir Del Rio MD Primary Care Provider [phone] Yobani Qiu MD Unavailable [phone] Allergies Active Allergy Reactions Criticality Noted Date Comments Amoxicillin-Pot Clavulanate Dizziness Low 12/26/19 25 Metronidazole Unknown 07/23/2024 Sulfa Unknown 07/12/2017 Medications metoprolol tartrate (LOPRESSOR) 25 mg immediate release tablet Take 1 tablet (25 mg total) by mouth 2 (two) times a day Active acetaminophen (TYLENOL) 325 mg tabletIndicatio ns:Pain Take 2 tablets (650 mg total) by mouth every 6 (six) hours 09/30/2024 Active Active Problems Problem Noted Date Diagnosed Date Diverticulitis 09/27/2024 Diverticulitis of intestine with abscess without bleeding, unspecified part of intestinal tract 09/27/2024 Encounters Date Type Department Care Team Description 12/25/2024 Telephone [facility] Medicine Surgery [address] [facility] [address] [place] [address] Daria Schmidt RN from Last 3 Months Surgical History Surgery [...] more drinks on one occasion? Never 07/23/2024 Personal Safety Answer Date Recorded Have you ever been in or are you currently in a harmful physical or emotional relationship or is someone making you feel afraid or unsafe? 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 Gender Identity Not on file Sexual Orientation Not on file Last Filed Vital Signs Vital Sign Reading Time Taken Comments Blood Pressure 142/77 09/30/2024 8:25 AM CDT Pulse 61 09/30/2024 8:25 AM CDT Temperature 36.9 C (98.4 F) 09/30/2024 8:41 AM CDT Respiratory Rate 16 09/30/2024 8:25 AM CDT Oxygen Saturation 96% 09/30/2024 8:25 AM CDT Inhaled Oxygen Concentration - - Weight 139.5 kg (307 lb 8 oz) 09/27/2024 8:52 PM CDT Height 172.7 cm (5' 8) 09/27/2024 7:42 PM CDT Body Mass Index 46.76 09/27/2024 7:42 PM CDT Plan of Treatment Health Maintenance Due Date Last Done Comments Breast Cancer Screening-Mammogram 1981 Cervical Cancer Screening 1981 Depression Screening 1981 Hepatitis C Screening 1981 DTaP/Tdap/Td Vaccine (1 - Tdap) 1992 Varicella Vaccines (1 of 2 - 13+ 2-dose series) 1994 Hepatitis B Screening 1999 Regular Well Visit/Exam 18-64 1999 Pneumococcal vaccine <65 (1 of 2 - PCV) 2000 HPV Vaccines (1 - 3-dose SCDM series) 2008 Influenza Vaccine (#1) 2024 02/05/2020, 2017 Insurance [employer] OOS [employer] [place] CIG [facility] Advance Directives For more information, please contact: [phone] * Full Code (Latest Code Status on File) Date Activated Date Inactivated Comments 09/27/2024 6:55 PM 09/30/2024 9:58 PM Care Teams Felt Coverer Relationship Specialty Start Date End Date Abdulkadir Del Rio MD [address] [address] PCP - General Family Medicine 09/05/22 Yobani Qiu MD [id number] [place] [address] Surgeon Colon and Rectal Surgery 07/23/24
--- OUTSIDE RECORDS SUMMARY | 2025-03-11 11:19 | XMS_ITS | Encounter Summary ---
Author Organization [facility] Address [address] [place] [address] Phone Care Team Providers Care Body And Fender Mechanic Apprentice Name Role Phone Heraclio Morley DO Primary Care Provider [phone] Abdulkadir Del Rio MD Primary Care Provider [phone] Yobani Qiu MD Unavailable [phone] Encounter Details Date Type Department Care Team (Late st Contact Info) Description 08/30/2022 Orders Only [facility] Scanning, Provider Social History Tobacco Use Types Packs/Day Years Used Date Smoking Tobacco: Never Comments Unknown Sex and Gender Information Value Date Recorded Sex Assigned at Not on file 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
== END 2025-03-11 09:00 | disposition home or self-care (01) ==
LOC: CHSIMG 09:00
PROVIDERS: PCP Family Medicine; Visit Provider Obstetrics & Gynecology
DX: Z12.31 Encounter for screening mammogram for malignant neoplasm of breast (principal)
CPT/HCPCS: 77063; 77067

== ENCOUNTER 2025-04-20 12:34 | Outpatient (CLI) | payer OTHER, BC, SELFPAY ==
--- OUTSIDE RECORDS SUMMARY | 2025-04-20 12:45 | XMS_ITS | Clinical Summary ---
Author Organization 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 Gender Identity Not on file Sexual Orientation [...] Influenza Vaccine (#1) 2024 02/05/2020, 2017 Insurance [email or web address]ESS [employer] [place] [email or web address] [facility] Advance Directives For more information, please contact: [phone] * Full Code (Latest Code Status on File) Date Activated Date Inactivated Comments 09/27/2024 6:55 PM 09/30/2024 9:58 PM Care Teams Fruit Culler Relationship Specialty Start Date End Date Abdulkadir Del Rio MD [address] [address] PCP - General Family Medicine 09/05/22 Yobani Qiu MD [id number] [place] [address] Surgeon Colon and Rectal Surgery 07/23/24
--- OUTSIDE RECORDS SUMMARY | 2025-04-20 12:45 | XMS_ITS | Encounter Summary ---
Author Organization [facility] Address [address] [place] [address] Phone Care Team Providers Care Nuclear Technician Name Role Phone Heraclio Morley DO Primary Care Provider [phone] Abdulkadir Del Rio MD Primary Care Provider [phone] Yobani Qiu MD Unavailable [phone] Encounter Details Date Type Department Care Team (Late st Contact Info) Description 08/30/2022 Orders Only [facility] Scanning, Provider Social History Tobacco Use Types Packs/Day Years Used Date Smoking Tobacco: Never Comments Unknown Sex and Gender Information Value Date Recorded Sex Assigned at Not on file 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
[2025-04-20 13:10] LABS: Add Urine Microscopic? YES; Appearance Urine Clear (Clear); Glucose Urine UA Negative (Negative); Leukocyte Esterase Ur Negative LEU/UL (Negative); Nitrate Urine Negative (Negative); Non Pathogenic Casts 0-2; Specific Grav Ur 1.021 (1.001-1.035)
[2025-04-20 13:11] LABS: Hemoglobin A1C 5.2 % (<5.7)
[2025-04-20 16:24] LABS: Alanine Aminotransferase 25 U/L (6-35); Albumin Level 3.9 g/dL (3.5-5.1); Alkaline Phosphatase 81 U/L (38-126); Anion Gap 7 mmol/L (4-12); Aspartate Amino Transferase 34 U/L (14-36); Bilirubin,Total 0.5 mg/dL (0.2-1.3); Blood Urea Nitrogen 6 mg/dL (7-17); Calcium 8.2 mg/dL (8.4-10.2); Carbon Dioxide 25 mmol/L (22-30); Chloride 104 mmol/L (98-107); Cholesterol 177 mg/dL (0-200); Estimated Glomerular Filt Rate > 60; Glucose 97 mg/dL (65-110); HDL Direct 52 mg/dL; Potassium 4.0 mmol/L (3.4-5.0); Sodium 136 mmol/L (137-145); Total Protein 6.8 g/dL (6.3-8.2); Triglycerides 164 mg/dL (<150)
[2025-04-20 17:23] LABS: Vitamin B12 311.0 pg/mL (239-931)
== END 2025-04-20 12:35 | disposition home or self-care (01) ==
PROVIDERS: PCP Family Medicine; Visit Provider Family Medicine
DX: R73.01 Impaired fasting glucose (principal); E78.2 Mixed hyperlipidemia; E55.9 Vitamin D deficiency, unspecified; E53.8 Deficiency of other specified B group vitamins
CPT/HCPCS: 36415; 80053; 80061; 81001; 82607; 82652; 83036